=== PATIENT | female | born 1975 | race Caucasian/White ===

== ENCOUNTER 2025-03-17 11:27 | Observation (INO) | payer MEDICAID, SELFPAY ==
--- NOTE | ~2025-03-17 | CT_ITS ---
EXAMINATION: CT abdomen pelvis w con DATE: 03/17/2025 12:37 INDICATION: Abdominal pain, nausea, vomiting and diarrhea TECHNIQUE: Computed tomography (CT) of the abdomen and pelvis was performed with 100 mL Omnipaque-350 intravenous contrast. Automated exposure control and iterative reconstruction technique were employe d. The dose-length product was 418.62 mGy-cm. COMPARISON: None FINDINGS: Moderate emphysema in the visualized lower lungs. Postoperative changes of prior partial right pneumo nectomy, likely right lower lobectomy with suture line extending inferiorly from the hilum and associ ated lingular atelectasis/scarring. Heart size is normal. No pericardial or pleural effusion. Small s liding-type hiatal hernia. Cholecystectomy clips the gallbladder fossa. Liver, spleen, pancreas, bila teral adrenal glands are normal. There is mild bilateral hydroureteronephrosis extending to the bladd er with no evident urolithiasis. There are multiple phleboliths in the pelvis. Bladder and bilateral adnexa are unremarkable. 1 cm calcification versus an enhancing lesion within the endometrial canal a t the uterine fundus. Small bowel and appendix are normal. No obstruction. There is fluid in the asce nding colon consistent with given history of diarrhea. No suspected colonic wall thickening although assessment is limited by decompression of the more distal colon. No pericholecystic inflammation pres enting to suggest colitis. No free intraperitoneal gas or fluid. No pathologically enlarged abdominal or pelvic lymphadenopathy. Spondylosis, of the lumbar spine, severe at L5-S1 and mild to moderate in the visualized lower thoracic spine. Chronic appearing mild likely physiologic anterior wedging at T 12. IMPRESSION: 1. Fluid in the proximal colon consistent with nonspecific diarrhea. 2. Mild bilateral hydroureteronephrosis extending to the bladder without evident obstructing stones o r masses which could be related to chronic outlet obstruction or neurogenic bladder. 3. Moderate emphysema at the lung bases with suggestion of prior right lower lobectomy. 4. Small sliding-type hiatal hernia. 5. Indeterminate 1 cm nodular density in the endometrial canal which could represent dystrophic calci fication or an enhancing lesion such as a submucosal fibroid or major polyp. Recommend follow-up pelv ic ultrasound for further evaluation. Reviewed, dictated and finalized at location A. IMPRESSION: 1. Fluid in the proximal colon consistent with nonspecific diarrhea. 2. Mild bilateral hydroureteronephrosis extending to the bladder without eviden t obstructing stones or masses which could be related to chronic outlet obstruc tion or neurogenic bladder. 3. Moderate emphysema at the lung bases with suggestion of prior right lower lo bectomy. 4. Small sliding-type hiatal hernia. 5. Indeterminate 1 cm nodular density in the endometrial canal which could repr esent dystrophic calcification or an enhancing lesion such as a submucosal fibr oid or major polyp. Recommend follow-up pelvic ultrasound for further evaluatio n.
[2025-03-17 11:27] VITALS: BP 162/100; PULSE 84; RESP 18; TEMP 36.4; O2SAT 97
--- NOTE | 2025-03-17 11:53 | ED_ITS ---
HPI - Nausea/Vomiting/Diarrhea General Chief complaint: Nausea/Vomiting/Diarrhea Stated complaint: vomiting Time Seen by Provider: 03/17/25 11:41 Source: patient Mode of arrival: ambulatory Limitations: no limitations History of Present Illness HPI Narrative: this is a 49-year-old female marijuana user chronically presents with some abdominal pain nausea currently no vomiting no fever chills no flank pain no [address] st pain no shortness of breaths no diarrhea constipation. Patient was recently seen approximately 1 1 day ago at another emergency department facility and had a workup performed at that time. MD elicited complaint: nausea and abdominal pain Onset (ago): week(s) Related Data Home Medications ?Medication ?Instructions ?Recorded ?Confirmed ?Last Taken ?Type atorvastatin 40 mg tablet (Lipitor) 40 mg PO DAILY 03/17/25 03/17/25 Unknown History gabapentin 300 mg capsule 300 mg PO TID 03/17/25 03/17/25 Unknown History metoclopramide HCl 5 mg tablet 5 mg PO QID 03/17/25 03/17/25 Unknown History (Reglan) omeprazole 40 mg capsule,delayed 40 mg PO BID 03/17/25 03/17/25 Unknown History release ondansetron HCl 4 mg tablet 4 mg PO Q8H 03/17/25 03/17/25 Unknown History oxcarbazepine 300 mg tablet 300 mg PO BID 03/17/25 03/17/25 Unknown History paroxetine HCl 20 mg tablet 20 mg PO QAM 03/17/25 03/17/25 Unknown History promethazine 25 mg tablet 25 mg PO Q6H PRN nausea and 03/17/25 03/17/25 Unknown History vomiting tizanidine 2 mg tablet 2 mg PO Q8H 03/17/25 03/17/25 Unknown History trazodone 150 mg tablet 150 mg PO HS PRN sleep 03/17/25 03/17/25 Unknown History Allergies Allergy/AdvReac Type Severity Reaction Status Date / Time mushroom Allergy Unknown Verified 03/17/25 11:40 tirzepatide (From Zepbound) Allergy Unknown Verified 03/17/25 11:40 flu Allergy Unknown Uncoded 03/17/25 11:40 Review of Systems Review of Systems: All systems reviewed & are unremarkable except as noted in HPI and below PMFSH Past Medical History Medical History Marijuana use Depression Exam Const: General: healthy appearing and no acute distress Nutritional Appearance: well nourished Orientation/consciousness: patient oriented x3 Limitations: no limitations Neck: Neck: normal visual inspection, no lymphadenopathy and no meningeal signs Chest: Chest palpation & inspection: normal inspection of the chest Resp: Effort & Inspection: normal respiratory effort Auscultation: clear to auscultation bilaterally Cardio: Rate: regular rate Rhythm: regular rhythm GI: GI Palp: Yes Soft to palpation and Yes Tenderness to palpation present (GI) Auscultation: normal bowel sounds : General: Yes bladder normal to palpation Urinary Catheter: Urinary Catheter: patent and draining Back/Spine/Pelvis: Back: no CVA tenderness Skin: General skin exam: normal color Rashes: no rashes Neuro: General: patient oriented x3, moves all extremities, no meningeal signs and no focal motor deficits Extrem: General: normal to inspection, no clubbing, cyanosis or edema and no pedal edema Course Course Emergency Course: patient received IV Zofran along with IV Toradol for pain control and for nausea, started IV fluids normal saline CT scan abdomen pelvis performed and reviewed with patient. Blood work performed and reviewed. Spoke to hospitalist and will admit patient for observation. Vital Signs Vital signs: Vital Signs Temperature 36.4 C 03/17/25 11:27 Pulse Rate 84 03/17/25 11:27 Respiratory Rate 18 03/17/25 11:27 Blood Pressure 162/100 H 03/17/25 11:27 Pulse Oximetry 97 03/17/25 11:27 Oxygen Delivery Room Air 03/17/25 11:27 Temperature 36.4 C 03/17/25 11:27 Pulse Rate 84 03/17/25 11:27 Respiratory Rate 18 03/17/25 11:27 Blood Pressure 162/100 H 03/17/25 11:27 Pulse Oximetry 97 03/17/25 11:27 Oxygen Delivery Room Air 03/17/25 11:27 Critical Care Time Critical Care Time Critical Care Time: No Discharge Plan Discharge Clinical Impression: Marijuana use, Dehydration, Acute hypokalemia, Cannabinoid hyperemesis syndrome Patient Disposition: Acute Care Hospital Condition: Guarded Prognosis Patient Language: Lithuanian Prescriptions: No Action ondansetron HCl 4 mg tablet 4 mg PO Q8H metoclopramide HCl [Reglan] 5 mg tablet 5 mg PO QID promethazine 25 mg tablet 25 mg PO Q6H PRN (Reason: nausea and vomiting) tizanidine 2 mg tablet 2 mg PO Q8H trazodone 150 mg tablet 150 mg PO HS PRN (Reason: sleep) oxcarbazepine 300 mg tablet 300 mg PO BID paroxetine HCl 20 mg tablet 20 mg PO QAM omeprazole 40 mg capsule,delayed release(DR/EC) 40 mg PO BID atorvastatin [Lipitor] 40 mg tablet 40 mg PO DAILY gabapentin 300 mg capsule 300 mg PO TID Follow-up/Referrals: UNKNOWN,DOCTOR [Non-Staff] - Time of Disposition: 13:33
[2025-03-17 11:59] LABS: Hematocrit 34.9 % (35.0-49.0); Hemoglobin 11.3 g/dL (12.0-15.0); Immature Granulocyte Percent A 0.5 % (0.0-0.0); Lymphocytes Absolute Auto 1.61 K/mm3 (1.10-4.50); Mean Corpuscular HGB Conc 32.4 g/dL (32-36); Mean Corpuscular Hemoglobin 26.8 pg (27.0-31.0); Mean Corpuscular Volume 82.9 fL (78.0-102.0); Nucleated Red Blood Cells Absolute Auto 0.00 K/mm3 (0.00-0.00); Nucleated Red Blood Cells Perc 0.0 % (0-0.0); Platelet Count Result 273 K/mm3 (150-420); Red Blood Count 4.21 M/mm3 (4.20-5.40); White Blood Count 9.4 K/mm3 (4.8-10.8)
[2025-03-17] MEDS: KETOROLAC 30 MG/ML VIAL (*BKC) IV PUSH (12:06)
[2025-03-17] MEDS: ONDANSETRON INJ 4 MG/2 ML VIAL IV PUSH ×2 (12:06→16:35)
[2025-03-17] MEDS: SODIUM CHLORIDE 0.9% IV 1,000 ML 999 ML IV CONT (12:06)
[2025-03-17 12:10] LABS: Alanine Aminotransferase 30 U/L (6-35); Albumin Level 3.9 g/dL (3.5-5.1); Alkaline Phosphatase 85 U/L (38-126); Anion Gap 11 mmol/L (4-12); Aspartate Amino Transferase 33 U/L (14-36); Bilirubin,Total 0.6 mg/dL (0.2-1.3); Blood Urea Nitrogen 9 mg/dL (7-17); Calcium 8.8 mg/dL (8.4-10.2); Carbon Dioxide 18 mmol/L (22-30); Chloride 103 mmol/L (98-107); Estimated CRCL calculation 92 ml/min; Estimated Glomerular Filt Rate > 60; Glucose 147 mg/dL (65-110); Lipase 56 U/L (23-300); Osmolality Calculated 275 mOsm/kg (285-295); Sodium 132 mmol/L (137-145); Total Protein 6.5 g/dL (6.3-8.2)
[2025-03-17 12:12] LABS: Potassium 2.8 mmol/L (3.4-5.0)
--- OUTSIDE RECORDS SUMMARY | 2025-03-17 12:18 | XMS_ITS | Clinical Summary ---
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 LAB CHEMISTRY METHOD 12/29/2024 7:37 AM CDT [facility] Comment:Lipase reference ran ge has been updated to better align with national standards. Previous Lipase reference range was 73-393 U/L Blood Venous blood specimen / Unknown Venipuncture / Unknown 12/29/2024 7:01 AM CDT 12/29/2024 7:12 AM CDT Juwan Michael MD LAB BLOOD ORDERABLES Final R esult Performing Organization Address [facility] de Phone Number [facility] [address] [place] [phone] from Last 3 Months Insurance [facility] MEDICAID REPLACEMENT Advance Directives For more information, please contact: [phone] (7:30 AM - 5PM [facility], 7 days a week) * Full Code (Latest Code Status on File) Date Activated Date Inactivated Comments 01/24/2025 9:55 PM 01/25/2025 7:44 PM * Full Code Date Activated Date Inactivated Comments 12/29/2024 10:33 AM 12/31/2024 1:44 PM Care Teams Clinical Director Relationship Specialty Start Date End Date Bisi Rutledge [address] [place] [address] [place] [address] PCP - General 12/29/24
--- OUTSIDE RECORDS SUMMARY | 2025-03-17 12:19 | XMS_ITS | Clinical Summary ---
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 Role Phone Bisi Rutledge RETORT FORKER Primary Care Provider + Allergies Active Allergy Reactions Criticality Noted Date Comments Influenza Virus Vaccines Rash Medium 11/07/2024 Mushroom Nausea & Vomiting Low 12/12/2024 Tirzepatide (Weight Loss) Vomiting Low 01/13/2025 Medications gabapentin (NEURONTIN) 300 mg capsule Take 1 capsule (300 mg total) by mouth 3 (three) times a day Active OXcarbazepine (TRILEPTAL) 300 mg tablet Take 1 tablet (300 mg total) by mouth 2 (two) times a day Active albuterol HFA (PROVENTIL HFA,VENTOLIN HFA,PROAIR HFA) 90 mcg/actuation inhaler Inhale 2 puffs every 6 (six) hours as needed for wheezing Active atorvastatin (LIPITOR) 40 mg tablet Take 1 tablet (40 mg total) by mouth daily Active hydrOXYzine (ATARAX) 25 mg tablet Take 1 tablet (25 mg total) by mouth 3 (three) times a day Active Zepbound 2.5 mg/0.5 mL pen injector INJECT 2.5 MG BY SUBCUTANEOUS ROUTE EVERY WEEKS FOR 4 WEEKS 12/05/19 25 Active traZODone (DESYREL) 100 mg tablet Take 1 tablet (100 mg total) by mouth nightly Active omeprazole (PriLOSEC) 40 mg capsule Take 1 capsule (40 mg total) by mouth 2 (two) times a day 180 capsule 3 12/19/19 25 Active metoclopramide (REGLAN) 10 mg tabletIndications: Nausea Take 0.5 tablets (5 mg total) by mouth 4 (four) times a day for 5 days 10 tablet 12/29/19 25 Active ondansetron (ZOFRAN) 4 mg tablet Take 1 tablet (4 mg total) by mouth every 8 (eight) hours as needed for nausea or vomiting 20 tablet 3 01/10/20 25 Active promethazine (PHENERGAN) 25 mg tablet Take 1 tablet (25 mg total) by mouth every 6 (six) hours as needed for nausea or vomiting 1 - 2 times daily, uses zofran in between as needed 30 tablet 1 01/10/20 25 Active dicyclomine (BENTYL) 20 mg tablet Take 1 tablet (20 mg total) by mouth 2 (two) times a day 20 tablet 02/14/20 25 026 Active ondansetron ODT (ZOFRAN-ODT) 4 mg disintegrating tablet Dissolve 1 tablet for mild to moderate nausea or vomiting or 2 tablets for severe nausea or vomiting oral twice a day as needed. 20 tablet 02/14/20 25 Active Active Problems Problem Noted Date Diagnosed Date Nausea and vomiting 12/12/2024 Assessment & Plan (12/12/2024 2:59 PM CDT): Has daily nausea. She is vomiting a couple of times per week. Continue zofran 4 mg TID as needed and Phenergan 25 mg TID as needed. Will schedule EGD. She has been on zepbound for 2 weeks without an increase in symptoms. Chronic GERD 12/12/2024 Assessment & Plan (12/12/2024 3:00 PM CDT): The patient has symptoms of GERD. Will increase omeprazole to 40 mg BID. She has a warning sign of occasional esophageal dysphagia. No prior EGD. Will schedule an EGD. Colon cancer screening 12/12/2024 Assessment & Plan (12/12/2024 3:03 PM CDT): She reports a colonoscopy last year with 3 small polyps, records not available. If hyperplastic, repeat colonoscopy in 10 years. If adenomas less than 10 mm, repeat in 7-10 years. Encounters Date Type Department Care Team Description 02/13/2025 1:52 PM CDT - 02/13/2025 8:51 PM CDT Emergency [facility] Emergency Department [address] [place] [address] Sole Aldrich MD Abdominal pain (Primary Dx); Nausea and vomiting, unspecified vomiting type Discharge Disposition: Discharge to home or self care 02/06/2025 7:13 PM CDT - 02/06/2025 7:15 PM CDT Emergency [facility] Emergency Department [address] [place] [phone] Discharge Disposition: Left without being seen 01/15/2025 Telephone [facility] Medical Office [address] [place] [phone] Eugene Francis DO 01/13/2025 6:28 PM CDT - 01/13/2025 7:25 PM CDT Emergency [facility] Emergency Department [address] [place] [phone] Cellulitis, unspecified cellulitis site (Primary Dx) Discharge Disposition: Discharge to home or self care 01/09/2025 Orders Only [facility] Medical Office [address] [place] [phone] Humera Hung NP 12/28/2024 1:23 PM CDT - 12/28/2024 6:20 PM CDT Emergency [facility] Emergency Department [address] [place] [phone] Epigastric pain (Primary Dx); Nausea and vomiting, unspecified vomiting type; Hypokalemia due to excessive gastrointestinal loss of potassium Discharge Disposition: Discharge to home or self care 12/18/2024 8:40 AM CDT - 12/18/2024 1:12 PM CDT Emergency [facility] Emergency Department [address] [place] [phone] Black Sears MD Cannabis hyperemesis syndrome concurrent with and due to cannabis abuse (HCC) (Primary Dx) Discharge Disposition: Discharge to home or self care 12/18/2024 Orders Only [facility] Medical Office [address] [place] [phone] Humera Hung NP 12/16/2024 10:21 AM CDT - 12/16/2024 2:41 PM CDT Emergency [facility] Emergency Department [address] [place] [phone] Farhan Mckeon MD Nausea and vomiting, unspecified vomiting type (Primary Dx); Abdominal pain Discharge Disposition: Discharge to home or self care from Last 3 Months Surgical History Surgery Date Site/Laterality Comments COLONOSCOPY 09/06/2023 - 09/05/2024 LUNG REMOVAL, PARTIAL 09/06/2023 - 09/05/2024 due to pneumonia TUBAL LIGATION CHOLECYSTECTOMY TENDON REPAIR Left left finger ABLATION uterine Medical History Medical History Date Comments Suicidal ideation Generalized anxiety disorder Asthma Chronic back pain GERD (gastroesophageal reflux disease) Bipolar I disorder with mixed features (HCC) Colon polyp 2023 Adhd Family History Medical History Relation Name Comments Hypertension Father Diabetes type II Mother Heart disease Mother Hypertension Mother Ovarian cancer Paternal Grandmother Colon cancer Neg Hx Relation Name Status Comments Father Alive Mother Alive Paternal Grandmother Social History Tobacco Use Types Packs/Day Years Used Date Smoking Tobacco: Former Cigarettes Smokeless Tobacco: Never AUDIT-C Answer Date Recorded Frequency of Alcohol Consumption Not on file 11/07/2024 Q2: How many drinks containi ng alcohol do you have on a typical day when you are drinking? Patient does not drink Frequency of Binge Drinking Not on file 12/2024 Personal Safety Answer Date Recorded Have you ever been in or are you currently in a harmful physical or emotional relationship or is someone making you feel afraid or unsafe? 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 Sexual Orientation Bisexual 11/14/2024 5: 51 AM CDT Obstetrics History Para Term AB IAB SAB Ectopic Multiple Livin g Live Births 8 5 5 Date Outcome GA Total Labor Labor/2nd/3rd Weight Sex Type Anes PTL Ting A1 A5 Name Clin Term Term Term Term Term Last Filed Vital Signs Vital Sign Reading Time Taken Comments Blood Pressure 107/74 02/13/2025 8:30 PM CDT Pulse 87 02/13/2025 8:30 PM CDT Temperature 36.8 C (98.2 F) 02/13/2025 1:49 PM CDT Respiratory Rate 16 02/13/2025 7:55 PM CDT Oxygen Saturation 94% 02/13/2025 8:30 PM CDT Inhaled Oxygen Concentration - - Weight 81.6 kg (180 lb) 02/06/2025 5:45 PM CDT Height 166.4 cm (5' 5.5) 02/06/2025 5:45 PM CDT Body Mass Index 29.5 02/06/2025 5:45 PM CDT Plan of Treatment Health Maintenance Due Date Last Done Comments Cervical Cancer Screening 1976 Depression Screening 1976 Hepatitis C Screening 1976 DTaP/Tdap/Td Vaccine (1 - Tdap) 12/25/1987 Hepatitis B Screening 1994 Regular Well Visit/Exam 18-64 1994 Influenza Vaccine (#1) 2025 Breast Cancer Screening-Mammogram 12/05/2025 025 Colon Cancer Screening-Colonoscopy 09/06/20332023 Pneumococcal vaccine <65 Aged Out No longer eligible based on patient's age to complete this topic Procedures Procedure Name Priority Date/Time Associated Diagnosis Comments CT ABDOMEN PELVIS W CONTRAST ED 02/13/2025 7:07 PM CDT DRUGS OF ABUSE SCREEN, URINE WITHOUT CONFIRMATION STAT 02/13/2025 6:32 PM CDT URINALYSIS AND REFLEX TO MICROSCOPIC AND CULTURE STAT 02/13/2025 6:05 PM CDT EGFR STAT 02/13/2025 2:42 PM CDT DIFFERENTIAL AUTO STAT 02/13/2025 2:4 2 PM CDT LIPASE STAT 02/13/2025 2:42 PM CDT COMPREHENSIVE METABOLIC PANEL STAT 02/13/2025 2:42 PM CDT CBC WITH AUTO DIFFERENTIAL STAT 02/13/2025 2:42 PM CDT POCT RAPID HIV ANTIBODY COMMUNITY SCREENING-IVETT ELIGIBLE Routine 01/13/2025 7:01 PM CDT POCUS ABDOMINAL WALL / BACK SOFT TISSUE 01/13/2025 6:54 PM CDT POCT HCG, URINE Routine 12/28/2024 6:10 PM CDT URINALYSIS AND REFLEX TO MICROSCOPIC AND CULTURE STAT 12/28/2024 5:40 PM CDT ECG 12-LEAD STAT 12/28/2024 2:[address] ABDOMEN PELVIS W CONTRAST ED 12/28/2024 2:20 PM CDT PHOSPHORUS Add-On 12/28/2024 1:57 PM CDT MAGNESIUM Add-On 12/28/2024 1:57 PM CDT EGFR STAT 12/28/2024 1:57 PM CDT LIPASE Add-On 12/28/2024 1:57 PM CDT DIFFERENTIAL AUTO STAT 12/28/2024 1:5 7 PM CDT COMPREHENSIVE METABOLIC PANEL STAT 12/28/2024 1:57 PM CDT CBC WITH AUTO DIFFERENTIAL STAT 12/28/2024 1:57 PM CDT EGFR STAT 12/18/2024 9:16 AM CDT LIPASE STAT 12/18/2024 9:16 AM CDT COMPREHENSIVE METABOLIC PANEL STAT 12/18/2024 9:16 AM CDT DIFFERENTIAL AUTO STAT 12/18/2024 8:5 0 AM CDT CBC WITH AUTO DIFFERENTIAL STAT 12/18/2024 8:50 AM CDT URINALYSIS AND REFLEX TO MICROSCOPIC AND CULTURE STAT 12/16/2024 12:[address] ABDOMEN PELVIS WO CONTRAST ED 12/16/2024 11:12 AM CDT EGFR STAT 12/16/2024 10:32 AM CDT LIPASE STAT 12/16/2024 10:32 AM CDT DIFFERENTIAL AUTO STAT 12/16/2024 10: 32 AM CDT COMPREHENSIVE METABOLIC PANEL STAT 12/16/2024 10:32 AM CDT CBC WITH AUTO DIFFERENTIAL STAT 12/16/2024 10:32 AM CDT DIAGNOSTIC MAMMOGRAM BILATERAL W WALLY Schedule Routine, Read Routine (OP Routine) 12/05/2024 2:01 PM CDT Breast pain, right from Last 3 Months or Most Recently Relevant to Health Maintenance Results * CT Abdomen Pelvis W Contrast (02/13/2025 7:07 PM CDT) Anatomical Region Laterality Modality Body N/A Computed Tomogra phy 02/13/2025 7:02 PM CDT Impressions 02/13/2025 11:05 PM CDT No acute findings. The nodular uterine calcification noted above most likely represents a uterine fibroid but endometrial polyp is not excluded but the degree and appearance of calcifications suggest a benign abnormality. No interval changes when compared to prior study of 12/28/2024. Stat report by [facility] Electronically signed by: Bello Machado M.D. Narrative 02/13/2025 11:05 PM CDT EXAMINATION: CT ABDOMEN PELVIS W CONTRAST DATE: 02/13/2025 6:50 PM CLINICAL HISTORY: Abdominal pain, acute, nonlocalized TECHNIQUE: Axial CT imaging of the abdomen and pelvis performed with 75mL of Optiray 350 intravenous contrast. 2-D Reformatted images are obtained. COMPARISON: CT ABDOMEN PELVIS W CONTRAST 12/28/2024 FINDINGS: Lungs: Emphysematous changes lung parenchyma and prior partial right lobectomy. Heart: Trace to mild pericardial effusion. Liver: Normal. No mass. Gallbladder and biliary ducts: There is biliary dilatation, which likely represents post cholecystectomy reservoir effect. Pancreas: Normal. No ductal dilation. Spleen: Normal. No splenomegaly. Adrenal glands: Normal. No mass. Kidneys and ureters: Normal. No hydronephrosis. Normal nephrogram. Stomach and bowel: Scattered colonic diverticuli and again noted chronic inflammatory changes of the colonic wall and mucosal hypertrophy. No obstruction. No mucosal thickening. Appendix: Appendix is normal in caliber and there is no periappendiceal inflammatory changes. No evidence of acute appendicitis. Intraperitoneal space: Unremarkable. No free air. No significant fluid collection. Vasculature: Moderate to severe mixed calcified plaque of the abdominal aorta and iliac arteries. Lymph nodes: Unremarkable. No enlarged lymph nodes. Urinary bladder: Unremarkable as visualized. Reproductive: Again noted 1.2 cm slightly calcified nodular density either within the endometrial canal or subendometrial and unchanged from prior study. Uterus anteverted normal in size. Bones/joints: No acute fracture. Procedure Note Bello Machado MD - 02/13/2025 EXAMINATION: CT ABDOMEN PELVIS W CONTRAST DATE: 02/13/2025 6:50 PM CLINICAL HISTORY: Abdominal pain, acute, nonlocalized TECHNIQUE: Axial CT imaging of the abdomen and pelvis performed with 75mL of Optiray 350 intravenous contrast. 2-D Reformatted images are obtained. COMPARISON: CT ABDOMEN PELVIS W CONTRAST 12/28/2024 FINDINGS: Lungs: Emphysematous changes lung parenchyma and prior partial right lobectomy. Heart: Trace to mild pericardial effusion. Liver: Normal. No mass. Gallbladder and biliary ducts: There is biliary dilatation, which likely represents post cholecystectomy reservoir effect. Pancreas: Normal. No ductal dilation. Spleen: Normal. No splenomegaly. Adrenal glands: Normal. No mass. Kidneys and ureters: Normal. No hydronephrosis. Normal nephrogram. Stomach and bowel: Scattered colonic diverticuli and again noted chronic inflammatory changes of the colonic wall and mucosal hypertrophy. No obstruction. No mucosal thickening. Appendix: Appendix is normal in caliber and there is no periappendiceal inflammatory changes. No evidence of acute appendicitis. Intraperitoneal space: Unremarkable. No free air. No significant fluid collection. Vasculature: Moderate to severe mixed calcified plaque of the abdominal aorta and iliac arteries. Lymph nodes: Unremarkable. No enlarged lymph nodes. Urinary bladder: Unremarkable as visualized. Reproductive: Again noted 1.2 cm slightly calcified nodular density either within the endometrial canal or subendometrial and unchanged from prior study. Uterus anteverted normal in size. Bones/joints: No acute fracture. IMPRESSION: No acute findings. The nodular uterine calcification noted above most likely represents a uterine fibroid but endometrial polyp is not excluded but the degree and appearance of calcifications suggest a benign abnormality. No interval changes when compared to prior study of 12/28/2024. Stat report by [facility] Electronically signed by: Bello Machado M.D. Sole Aldrich MD IMG CT PROCEDURES Final Result * (ABNORMAL) Drugs of Abuse Screen, Urine without Confirmation (02/13/2025 6:32 PM CDT) Amphetamine, ur Not Detected CutOff 500ng/mL Comment: Interpretive Data - Amphetamines: Samples containing greater than 500 ng/mL d-methamphetamine or other cross-reacting amphetamine compounds are reported as positive. Amphetamine immunoassays are subject to significant false positive rates due to cross-reactivity of non-amphetamine drugs. Confirmatory testing required for definitive results. Current Interpretive Data was last reviewed 2023. Barbiturates, ur Not Detected CutOff 200ng/mL [facility] Comment: Interpretive Data - Barbiturates: Samples containing greater than 200 ng/mL secobarbital or other cross-reacting barbiturate compounds are reported as positive. False positive and false negative results are possible. Confirmatory testing required for definitive results. Current Interpretive Data was last reviewed 2023. Benzodiazepines, ur Not Detected CutOff 100ng/mL [facility] Comment: Interpretive Data - Benzodiazepines: Samples containing greater than 100 ng/mL nordiazepam or other cross-reacting compounds are reported as positive. False positive and false negative results are possible. Confirmatory testing required for definitive results. Current Interpretive Data was last reviewed 2023. Cannabinoids, ur Screen Positive, presumptive (A) CutOff 50 ng/mL [facility] Comment: Interpretive Data - Cannabinoids: Samples containing greater than 50 ng/mL delta-9 THC -COOH or other cross- reacting compounds are reported as positive. False positive and false negative results are possible. Confirmatory testing required for definitive results. Current Interpretive Data was last reviewed 2023. Cocaine, ur Not Detected CutOff 150ng/mL [facility] Comment: Interpretive Data - Cocaine: Samples containing greater than 150 ng/mL benzoylecgonine or other cross- reacting compounds are reported as positive. False positive and false negative results are possible. Confirmatory testing required for definitive results. Current Interpretive Data was last reviewed 2023. Fentanyl, Ur Not Detected CutOff 5 ng/mL [facility] Comment: Interpretive Data - Fentanyl: Samples containing greater than 5 ng/mL norfentanyl, fentanyl, or other cross-reacting fentanyl compounds are reported as positive. False positive and false negative results are possible. Confirmatory testing required for definitive results. Current Interpretive Data was last reviewed 2024. Methadone, ur Not Detected CutOff 300ng/mL [facility] Comment: Interpretive Data - Methadone: Samples containing greater than 300 ng/mL d,l-methadone or other cross-reacting compounds are reported as positive. False positive and false negative results are possible. Confirmatory testing required for definitive results. Current Interpretive Data was last reviewed 2023. Opiates, ur Not Detected CutOff 300ng/mL [facility] Comment: Interpretive Data - Opiates: Samples containing greater than 300 ng/mL morphine or other cross-reacting compounds are reported as positive. False positive and false negative results are possible. Confirmatory testing required for definitive results. Current Interpretive Data was last reviewed 2023. Oxycodone, ur Not Detected CutOff 100ng/mL [facility] Comment: Interpretive Data - Oxycodone: Samples containing greater than 100 ng/mL oxycodone or other cross-reacting compounds are reported as positive. False positive and false negative results are possible. Confirmatory testing required for definitive results. Current Interpretive Data was last reviewed 2023. Phencyclidine, ur Not Detected CutOff 25 ng/mL [facility] Comment: Interpretive Data - Phencyclidine: Samples containing greater than 25 ng/mL phencyclidine or other cross-reacting compounds are reported as positive. False positive and false negative results are possible. Confirmatory testing required for definitive results. Current Interpretive Data was last reviewed 2023. Urine Creatinine 54 mg/dL [facility] Comment: Interpretive Data Urine Creatinine: < 10 mg/dL is extremely dilute = or > 10 but < 20 mg/dL is dilute = or > 20 mg/dL is normal Current Interpretive Data was last revised on 2017. Urine 02/13/2025 6:32 PM CDT 02/13/2025 6:44 PM CDT Narrative [facility] - 02/13/2025 7:28 PM CDT Drug of Abuse screening is performed by immunoassay for medical purposes only. This is not to be used for Pain Management purposes. Sole Aldrich MD LAB URINE ORDERABLES nal Result [facility] [id number] Department [place] [address] * (ABNORMAL) Urinalysis reflex to microscopic and culture Urine (02/13/2025 6:05 PM CDT) Color, ur Yellow Yellow Clarity, ur Turbid(A) Clear [facility] Specific gravity, ur 1.016 1.003 - 1.030 [facility] pH, urine 8.5 [facility] Comment: Interpretive Data U rine pH is affected by diet, medications, systemic acid-base disturbances, and renal tubular function. pH may affect urinary stone formation. For example, urine pH below 6.0 may help reduce the tendency for calcium phosphate stones and pH greater than 6.0 may reduce the tendency for uric acid stone formation. Source: [facility] [employer] Current Interpretive Data was last revised on 2017 Protein, ur ql Trace Negative [facility] Glucose, ur ql Trace(A) Negative [facility] Ketones, ur Trace Negative [facility] Bilirubin, ur Negative Negative [facility] Blood, ur Negative Negative [facility] Urobilinogen, ur <2.0 <2.0 mg/dL [facility] Nitrite, ur Negative Negative [facility] Leukocyte esterase, ur Negative Negative [facility] UA reflex comment Reflex conditions for microscopic UA and culture not met. [facility] Urine 02/13/2025 6:05 PM CDT 02/13/2025 6:07 PM CDT Sole Aldrich MD LAB MICROBIOLOGY - GENE RAL ORDERABLES Final Result [facility] [id number] [place] [address] * eGFR (02/13/2025 2:42 PM CDT) eGFR >90 >=60 mL/min/1. 73 m2 Comment: Interpretive Data Reference Interval Normal >/= 90 mL/min/1.73m2 Mildly decreased* 60 - 89 mL/min/1.73m2 Mildly to moderately decreased 45 - 59 mL/min/1.73m2 Moderately to severely decreased 30 - 44 mL/min/1.73m2 Severely decreased 15 - 29 mL/min/1.73m2 Kidney Failure < 15 mL/min/1.73m2 *Relative to young adult level Estimated glomerular filtration rate is determined by the 2020 CKD-EPI equation recommended by the National Kidney Foundation (A Unifying Approach to GFR Estimation: Recommendations of the NKF-ASK Task Force on Reassessing the Inclusion of Race in Diagnosing Kidney Disease, JASN 2020). The CKD-EPI equation should not be used for patients with unstable renal function and has not been validated in children and those over 70. Current interpretive data was last reviewed 2021. Blood 02/13/2025 2:42 PM CDT 02/13/2025 2:54 PM CDT Sole Aldrich MD LAB BLOOD ORDERABLES Fi nal Result [facility] [address] [place] [address] * (ABNORMAL) Differential, auto (02/13/2025 2:42 PM CDT) Neutrophil abs 10.47(H) 1.50 - 6.50 K/cumm Imm gran abs 0.06 0.00 - 0.10 K/cumm [facility] Lymphocyte abs 1.25 0.80 - 3.30 K/cumm [facility] Monocyte abs 0.41 0.20 - 0.80 K/cumm [facility] Eosinophil abs 0.00 0.00 - 0.50 K/cumm [facility] Basophil abs 0.04 0.00 - 0.10 K/cumm [facility] Neutrophil pct 85.6 % [facility] Comment: Interpretive Data Percent cell count reference ranges are not reported, since discordance with absolute values may lead to misinterpretation of CBC data. Current Interpretive Data was last revised on 2017. Imm gran pct 0.5 % [facility] Comment: Interpretive Data Percent cell count reference ranges are not reported, since discordance with absolute values may lead to misinterpretation of CBC data. Current Interpretive Data was last revised on 2017. Lymphocyte pct 10.2 % [facility] Comment: Interpretive Data Percent cell count reference ranges are not reported, since discordance with absolute values may lead to misinterpretation of CBC data. Current Interpretive Data was last revised on 2017. Monocyte pct 3.4 % [facility] Comment: Interpretive Data Percent cell count reference ranges are not reported, since discordance with absolute values may lead to misinterpretation of CBC data. Current Interpretive Data was last revised on 2017. Eosinophil pct 0.0 % [facility] Comment: Interpretive Data Percent cell count reference ranges are not reported, since discordance with absolute values may lead to misinterpretation of CBC data. Current Interpretive Data was last revised on 2017. Basophil pct 0.3 % [facility] Comment: Interpretive Data Percent cell count reference ranges are not reported, since discordance with absolute values may lead to misinterpretation of CBC data. Current Interpretive Data was last revised on 2017. Blood 02/13/2025 2:42 PM CDT 02/13/2025 2:54 PM CDT Sole Aldrich MD LAB BLOOD ORDERABLES Fi nal Result Performing Organization Address City/[facility] Co de Phone Number [facility] [id number] [place] [employer] [place] [address] * (ABNORMAL) CBC with auto differential (02/13/2025 2:42 PM CDT) WBC 12.23(H) 3.80 - 9.90 K/cumm Hgb 12.5 11.9 - 15.5 g/dL [facility] Hct 38.2 35.6 - 45.5 % [facility] Plt 295 150 - 400 K/cumm [facility] MPV 11.6 9.1 - 12.3 fL [facility] CH RBC 4.65 3.90 - 5.20 M/cumm [facility] CH MCV 82.2 81.3 - 96.4 fL [facility] MCH 26.9(L) 27.1 - 33.3 pg [facility] MCHC 32.7 32.3 - 35.7 g/dL [facility] RDW CV 14.4 11.1 - 14.9 % [facility] RDW SD 43.0 35.7 - 48.1 fL [facility] NRBC abs 0.00 0.00 - 0.01 K/cumm [facility] Blood Venous blood specimen / Unknown 02/13/2025 2:42 PM CDT 02/13/2025 2:54 PM CDT Sole Aldrich MD LAB BLOOD ORDERABLES Fi nal Result [facility] [address] [place] [address] * Lipase (02/13/2025 2:42 PM CDT) Lipase 14 10 - 99 Units/L Blood Venous blood specimen / Unknown 02/13/2025 2:42 PM CDT 02/13/2025 2:54 PM CDT Sole Aldrich MD LAB BLOOD [place] [address] [place] [address] * (ABNORMAL) Comprehensive metabolic panel (02/13/2025 2:42 PM CDT) Sodium 140 135 - 145 mmol/L Potassium, pl 3.8 3.3 - 4.9 mmol/L [facility] Chloride 100 97 - 110 mmol/L [facility] CO2 21(L) 22 - 32 mmol/L [facility] Anion gap 19(H) 2 - 15 mmol/L [facility] BUN 9 6 - 25 mg/dL [facility] Creatinine 0.67 0.60 - 1.10 mg/dL [facility] Glucose 139 70 - 199 mg/dL [facility] Comment: Interpretive Data Fasting glucose >/= 126 mg/dl is diagnostic for diabetes. Fasting is defined as no caloric intake for at least 8 hours. Fasting glucose between 100 mg/dl to 125 mg/dl is diagnostic of prediabetes. In a patient with classic symptoms of hyperglycemia or hyperglycemic crisis, a random glucose >/= 200 mg/dl is diagnostic for diabetes. In the absence of unequivocal hyperglycemia, results should be confirmed by repeat testing. The classification and Diagnosis of Diabetes Diabetes Care 202; 46: S19-S40. Current interpretive data was last revised 2022. Calcium 10.1 8.5 - 10.3 mg/dL [facility] Bilirubin, total 0.3 0.1 - 1.2 mg/dL [facility] Protein, pl 7.5 6.5 - 8.5 g/dL [facility] Albumin 4.4 3.5 - 5.0 g/dL [facility] Alk phos 141(H) 40 - 130 Units/L [facility] ALT 12 7 - 45 Units/L [facility] AST 20 10 - 45 Units/L [facility] Blood 02/13/2025 2:42 PM CDT 02/13/2025 2:54 PM CDT Sole Aldrich MD LAB BLOOD ORDERABLES [place] [address] [place] [address] * POCT Rapid HIV Antibody Community Screening-[place] Eligible (01/13/2025 7:01 PM CDT) Rapid HIV, POC Negative Negative Lot Number [id number] QC Control Line Acceptable Blood 01/13/2025 7:01 PM CDT Maurice Shoemaker MD POINT OF CARE TEST ORDERABLES Final Result * POCUS Abdominal Wall/Back Soft Tissue (01/13/2025 6:54 PM CDT) Anatomical Region Laterality Modality Ultrasound 01/13/2025 6:44 PM CDT Narrative 01/14/2025 10:15 PM CDT Performed by: Jose Candelario/MSK: Exam Information: Exam type: Diagnostic Indication(s) for Exam: Swelling Location : Upper extremity Side: Left Findings: Tissue thickness: Thickened Cobblestoning: Increased Tissue echogenicity: Increased Subcutaneous collection: Present If present diameter (mm)=: 10 Subcutaneous gas/air: Absent Fascial fluid: Absent Muscle appearance: Normal Interpretation: Abscess Location : small [id number] area of ill-defined fluid, possible developing abscess, no clear fluid components, used to guide decision making to start abx and observe with warm compresses Electronically signed by Jose Candelario on Monday, January 13, 2025 at 7:54 PM I have reviewed the images & the resident's interpretation. I agree with the findings. Images on file. Electronically signed by Lucas Shoemaker on Tuesday, January 14, 2025 at 10:15 PM I have reviewed the images & the resident's interpretation. I agree with the findings. Images on file. Procedure Note Maurice Shoemaker MD - 01/14/2025 Performed by: Jose Candelario/AZAEL: Exam Information: Exam type: Diagnostic Indication(s) for Exam: Swelling Location : Upper extremity Side: Left Findings: Tissue thickness: Thickened Cobblestoning: Increased Tissue echogenicity: Increased Subcutaneous collection: Present If present diameter (mm)=: 10 Subcutaneous gas/air: Absent Fascial fluid: Absent Muscle appearance: Normal Interpretation: Abscess Location : small [id number] area of ill-defined fluid, possibledeveloping abscess, no clear fluid components, used to guide decisionmaking to start abx and observe with warm compresses Electronically signed by Jose Candelario on Monday, January 13, 2025 at 7:54PM I have reviewed the images & the resident's interpretation. I agree withthe findings. Images on file. Electronically signed by Lucas Shoemaker on Tuesday, January 14, 2025 at 10:15PM I have reviewed the images & the resident's interpretation. I agree withthe findings. Images on file. Maurice Shoemaker MD IMG US PROCEDURES Final Resul t * POCT hCG, urine (12/28/2024 6:10 PM CDT) HCG, ur, POC Negative Negative Lot Number [id number] QC Backgroud Clear Acceptable QC Control Line Acceptable Urine 12/28/2024 6:10 PM CDT Nate VALLE POINT OF CARE TEST ORDERAB LES Final Result * (ABNORMAL) Urinalysis reflex to microscopic and culture Urine (12/28/2024 5:40 PM CDT) Color, ur Yellow Yellow Clarity, ur Clear Clear [facility] ([place]) Specific gravity, ur >1.050(A) 1.003 - 1.030 [facility] ([place]) Comment:Specific Ignacio is high due to contrast. pH, urine 8.5 [facility] ([place]) Comment: Interpretive Data U rine pH is affected by diet, medications, systemic acid-base disturbances, and renal tubular function. pH may affect urinary stone formation. For example, urine pH below 6.0 may help reduce the tendency for calcium phosphate stones and pH greater than 6.0 may reduce the tendency for uric acid stone formation. Source: [employer] Current Interpretive Data was last revised on 2017 Protein, ur ql Trace Negative [facility] ([place]) Glucose, ur ql Negative Negative [facility] ([place]) Ketones, ur 1+(A) Negative [facility] ([place]) Bilirubin, ur Negative Negative [facility] ([place]) Blood, ur Negative Negative [facility] ([place]) Urobilinogen, ur <2.0 <2.0 mg/dL [facility] ([place]) Nitrite, ur Negative Negative [facility] ([place]) Leukocyte esterase, ur Negative Negative [facility] ([place]) UA reflex comment Reflex conditions for microscopic UA and culture not met. [facility] ([place]) Urine 12/28/2024 5:40 PM CDT 12/28/2024 5:43 PM CDT Nate VALLE LAB MICROBIOLOGY - GENERAL ORDERABLES Final Result Performing Organization Address City/[facility] Co de Phone Number [facility] ([place]) [address] [facility] Department [place] [address] * ECG 12 lead (12/28/2024 2:55 PM CDT) 12/28/2024 2:55 PM CDT Narrative [facility] - 12/28/2024 6:44 PM CDT Vent Rate: 84 bpm RR Interval: 708 msec NV Interval: 128 msec QRS Duration: 84 msec QT Interval: 407 msec QTC Interval: 448 msec P-R-T [place]: 70 - 71 - 57 degrees IMPRESSION: SINUS RHYTHM POSSIBLE LEFT ATRIAL ENLARGEMENT BORDERLINE ECG NO PREVIOUS TRACING AVAILABLE FOR COMPARISON Electronically Signed By: Dr. Mohamud Mitchell M.D. Nate VALLE ECG ORDERABLES Final Resu lt Performing Organization Address City/[facility] Co de Phone Number [facility] * CT Abdomen Pelvis W Contrast (12/28/2024 2:20 PM CDT) Anatomical Region Laterality Modality Body N/A Computed Tomogra phy 12/28/2024 2:51 PM CDT Impressions 12/28/2024 2:51 PM CDT No acute CT findings in the abdomen or pelvis. Electronically signed by: Edith Leung M.D. Narrative 12/28/2024 2:51 PM CDT EXAMINATION: Computed tomography of the abdomen and pelvis with intravenous contrast HISTORY: Epigastric pain TECHNIQUE: Transaxial computed tomographic images of the abdomen and pelvis were obtained with intravenous contrast according to the standard protocol after the uneventful administration of 69 mL Opti-Ray 350 intravenous contrast. COMPARISON: 12/16/2024 FINDINGS: Mosaic attenuation in the lung bases. Normal heart size. There is a trace pericardial effusion. Small hiatal hernia. No focal liver lesion or biliary ductal dilatation. Patent portal, splenic, superior mesenteric veins. Spleen, adrenal glands, pancreas are normal. Patient is status post cholecystectomy. No focal renal lesion or hydronephrosis. Urinary bladder is decompressed. Uterus is anteverted and contains a calcified fibroid. Ovaries are normal. No ascites or pneumoperitoneum. No enlarged abdominal or pelvic lymph nodes. Colon is largely decompressed. The appendix is fluid-filled and normal in caliber without surrounding inflammatory change. There is a fat-containing left inguinal hernia. No bowel obstruction. No suspicious osseous lesion. Procedure Note Edith Leung MD - 12/28/2024 EXAMINATION: Computed tomography of the abdomen and pelvis with intravenous contrast HISTORY: Epigastric pain TECHNIQUE: Transaxial computed tomographic images of the abdomen and pelvis were obtained with intravenous contrast according to the standard protocol after the uneventful administration of 69 mL Opti-Ray 350 intravenous contrast. COMPARISON: 12/16/2024 FINDINGS: Mosaic attenuation in the lung bases. Normal heart size. There is a trace pericardial effusion. Small hiatal hernia. No focal liver lesion or biliary ductal dilatation. Patent portal, splenic, superior mesenteric veins. Spleen, adrenal glands, pancreas are normal. Patient is status post cholecystectomy. No focal renal lesion or hydronephrosis. Urinary bladder is decompressed. Uterus is anteverted and contains a calcified fibroid. Ovaries are normal. No ascites or pneumoperitoneum. No enlarged abdominal or pelvic lymph nodes. Colon is largely decompressed. The appendix is fluid-filled and normal in caliber without surrounding inflammatory change. There is a fat-containing left inguinal hernia. No bowel obstruction. No suspicious osseous lesion. IMPRESSION: No acute CT findings in the abdomen or pelvis. Electronically signed by: Edith Leung M.D. Nate VALLE IMG CT PROCEDURES Final Re sult * eGFR (12/28/2024 1:57 PM CDT) eGFR 67 >=60 mL/min/1. 73 m2 Comment: Interpretive Data Reference Interval Normal >/= 90 mL/min/1.73m2 Mildly decreased* 60 - 89 mL/min/1.73m2 Mildly to moderately decreased 45 - 59 mL/min/1.73m2 Moderately to severely decreased 30 - 44 mL/min/1.73m2 Severely decreased 15 - 29 mL/min/1.73m2 Kidney Failure < 15 mL/min/1.73m2 *Relative to young adult level Estimated glomerular filtration rate is determined by the 2020 CKD-EPI equation recommended by the National Kidney Foundation (A Unifying Approach to GFR Estimation: Recommendations of the NKF-ASK Task Force on Reassessing the Inclusion of Race in Diagnosing Kidney Disease, JASN 2020). The CKD-EPI equation should not be used for patients with unstable renal function and has not been validated in children and those over 70. Current interpretive data was last reviewed 2021. Blood 12/28/2024 1:57 PM CDT 12/28/2024 2:01 PM CDT Nate VALLE LAB BLOOD ORDERABLES Final Result [facility] ([place]) [address] [facility] [facility] Department of Laboratories [place] [address] * (ABNORMAL) Differential, auto (12/28/2024 1:57 PM CDT) Neutrophil abs 10.51(H) 1.50 - 6.50 K/cumm Imm gran abs 0.07 0.00 - 0.10 K/cumm [facility] ([place] Lymphocyte abs 2.39 0.80 - 3.30 K/cumm [facility] ([place]) Monocyte abs 1.41(H) 0.20 - 0.80 K/cumm [facility] ([place]) Eosinophil abs 0.00 0.00 - 0.50 K/cumm [facility] ([place]) Basophil abs 0.04 0.00 - 0.10 K/cumm [facility] ([place]) Neutrophil pct 72.8 % [facility] ([place]) Comment: Interpretive Data Percent cell count reference ranges are not reported, since discordance with absolute values may lead to misinterpretation of CBC data. Current Interpretive Data was last revised on 2017. Imm gran pct 0.5 % [facility] ([place]) Comment: Interpretive Data Percent cell count reference ranges are not reported, since discordance with absolute values may lead to misinterpretation of CBC data. Current Interpretive Data was last revised on 2017. Lymphocyte pct 16.6 % [facility] ([place]) Comment: Interpretive Data Percent cell count reference ranges are not reported, since discordance with absolute values may lead to misinterpretation of CBC data. Current Interpretive Data was last revised on 2017. Monocyte pct 9.8 % [facility] ([place]) Comment: Interpretive Data Percent cell count reference ranges are not reported, since discordance with absolute values may lead to misinterpretation of CBC data. Current Interpretive Data was last revised on 2017. Eosinophil pct 0.0 % [facility] ([place]) Comment: Interpretive Data Percent cell count reference ranges are not reported, since discordance with absolute values may lead to misinterpretation of CBC data. Current Interpretive Data was last revised on 2017. Basophil pct 0.3 % [facility] ([place]) Comment: Interpretive Data Percent cell count reference ranges are not reported, since discordance with absolute values may lead to misinterpretation of CBC data. Current Interpretive Data was last revised on 2017. Blood 12/28/2024 1:57 PM CDT 12/28/2024 2:01 PM CDT us Nate VALLE LAB BLOOD ORDERABLES Final Result [facility] ([place]) [address] [facility] [place] [address] * (ABNORMAL) CBC with auto differential (12/28/2024 1:57 PM CDT) Pathologist [facility] WBC 14.42(H) 3.80 - 9.90 K/cumm Hgb 13.0 11.9 - 15.5 g/dL [facility] ([place]) Hct 37.8 35.6 - 45.5 % [facility] ([place]) Plt 513(H) 150 - 400 K/cumm [facility] ([place]) MPV 10.4 9.1 - 12.3 fL [facility] ([place]) RBC 4.91 3.90 - 5.20 M/cumm [facility] ([place]) MCV 77.0(L) 81.3 - 96.4 fL [facility] ([place]) MCH 26.5(L) 27.1 - 33.3 pg [facility] ([place]) MCHC 34.4 32.3 - 35.7 g/dL [facility] ([place]) RDW CV 13.6 11.1 - 14.9 % [facility] ([place]) RDW SD 38.5 35.7 - 48.1 fL [facility] ([place]) NRBC abs 0.00 0.00 - 0.01 K/cumm [facility] ([place]) Blood Venous blood specimen / Unknown 12/28/2024 1:57 PM CDT 12/28/2024 2:01 PM CDT us Nate VALLE LAB BLOOD ORDERABLES Final Result [facility] ([place]) [address] [facility] Department [place] [address] * (ABNORMAL) Phosphorus (12/28/2024 1:57 PM CDT) [facility] Phosphorus, pl 2.2(L) 2.3 - 4.5 mg/dL Blood 12/28/2024 1:57 PM CDT 12/28/2024 2:33 PM CDT Nate VALLE LAB BLOOD ORDERABLES Final Result [facility] ([place]) [address] [place] [address] Department [place] [address] * Magnesium (12/28/2024 1:57 PM CDT) [facility] Magnesium 1.5 1.4 - 2.5 mg/dL Blood 12/28/2024 1:57 PM CDT 12/28/2024 2:33 PM CDT Nate VALLE LAB BLOOD ORDERABLES Final Result [facility] ([place]) [address] [place] [address] [place] [address] * Lipase (12/28/2024 1:57 PM CDT) [facility] Lipase 18 10 - 99 Units/L Blood 12/28/2024 1:57 PM CDT 12/28/2024 2:13 PM CDT Nate VALLE LAB BLOOD ORDERABLES Final Result [facility] ([place]) [address] [place] [address] [place] [address] * (ABNORMAL) Comprehensive metabolic panel (12/28/2024 1:57 PM CDT) [facility] Sodium 135 135 - 145 mmol/L Potassium, pl 3.0(L) 3.3 - 4.9 mmol/L [facility] ([place]) Chloride 89(L) 97 - 110 mmol/L [facility] ([place]) CO2 24.0 22.0 - 32.0 mmol/L [facility] ([place]) Anion gap 22(H) 2 - 15 mmol/L [facility] ([place]) BUN 19 6 - 25 mg/dL [facility] ([place]) Creatinine 1.03 0.60 - 1.10 mg/dL [facility] ([place]) Glucose 114 70 - 199 mg/dL [facility] ([place]) Comment: Interpretive Data Fasting glucose >/= 126 mg/dl is diagnostic for diabetes. Fasting is defined as no caloric intake for at least 8 hours. Fasting glucose between 100 mg/dl to 125 mg/dl is diagnostic of prediabetes. In a patient with classic symptoms of hyperglycemia or hyperglycemic crisis, a random glucose >/= 200 mg/dl is diagnostic for diabetes. In the absence of unequivocal hyperglycemia, results should be confirmed by repeat testing. The classification and Diagnosis of Diabetes Diabetes Care 202; 46: S19-S40. Current interpretive data was last revised 2022 Calcium 9.9 8.5 - 10.3 mg/dL [facility] ([place]) Bilirubin, total 0.7 0.1 - 1.2 mg/dL [facility] ([place]) Protein, pl 8.0 6.5 - 8.5 g/dL [facility] ([place]) Albumin 4.6 3.5 - 5.0 g/dL [facility] ([place]) Alk phos 125 40 - 130 Units/L [facility] ([place]) ALT 12 7 - 45 Units/L [facility] ([place]) AST 23 10 - 45 Units/L [facility] ([place]) Blood Venous blood specimen / Unknown 12/28/2024 1:57 PM CDT 12/28/2024 2:01 PM CDT us Nate VALLE LAB BLOOD ORDERABLES Final Result [facility]) [address] [facility] Department [place] [address] * eGFR (12/18/2024 9:16 AM CDT) eGFR 64 >=60 mL/min/1. 73 m2 Comment: Interpretive Data Reference Interval Normal >/= 90 mL/min/1.73m2 Mildly decreased* 60 - 89 mL/min/1.73m2 Mildly to moderately decreased 45 - 59 mL/min/1.73m2 Moderately to severely decreased 30 - 44 mL/min/1.73m2 Severely decreased 15 - 29 mL/min/1.73m2 Kidney Failure < 15 mL/min/1.73m2 *Relative to young adult level Estimated glomerular filtration rate is determined by the 2020 CKD-EPI equation recommended by the National Kidney Foundation (A Unifying Approach to GFR Estimation: Recommendations of the NKF-ASK Task Force on Reassessing the Inclusion of Race in Diagnosing Kidney Disease, JASN 2020). The CKD-EPI equation should not be used for patients with unstable renal function and has not been validated in children and those over 70. Current interpretive data was last reviewed 2021. Blood 12/18/2024 9:16 AM CDT 12/18/2024 9:20 AM CDT us Black Sears MD LAB BLOOD ORDERABLES Final Result Performing Organization Address [facility] de Phone Number [facility] [place]) [address] [facility] [place] [address] * Lipase (12/18/2024 9:16 AM CDT) Lipase 23 10 - 99 Units/L Blood 12/18/2024 9:16 AM CDT 12/18/2024 9:20 AM CDT Black Sears MD LAB BLOOD ORDERABLES Final Result Performing Organization Address [facility] Co de Phone Number [facility] [address] Department of Laboratories [place] [address] * (ABNORMAL) Comprehensive metabolic panel (12/18/2024 9:16 AM CDT) Sodium 137 135 - 145 mmol/L Potassium, pl 3.0(L) 3.3 - 4.9 mmol/L [facility] ([place]) Chloride 96(L) 97 - 110 mmol/L [facility] ([place]) CO2 19.4(L) 22.0 - 32.0 mmol/L [facility] ([place]) Anion gap 22(H) 2 - 15 mmol/L [facility] ([place]) BUN 22 6 - 25 mg/dL [facility] ([place]) Creatinine 1.08 0.60 - 1.10 mg/dL [facility] ([place]) Glucose 120 70 - 199 mg/dL [facility] ([place]) Comment: Interpretive Data Fasting glucose >/= 126 mg/dl is diagnostic for diabetes. Fasting is defined as no caloric intake for at least 8 hours. Fasting glucose between 100 mg/dl to 125 mg/dl is diagnostic of prediabetes. In a patient with classic symptoms of hyperglycemia or hyperglycemic crisis, a random glucose >/= 200 mg/dl is diagnostic for diabetes. In the absence of unequivocal hyperglycemia, results should be confirmed by repeat testing. The classification and Diagnosis of Diabetes Diabetes Care 2021; 46: S19-S40. Current interpretive data was last revised 2022 Calcium 10.2 8.5 - 10.3 mg/dL [facility] ([place]) Bilirubin, total 0.3 0.1 - 1.2 mg/dL [facility] ([place]) Protein, pl 8.4 6.5 - 8.5 g/dL [facility] ([place]) Albumin 5.1(H) 3.5 - 5.0 g/dL [facility] ([place]) Alk phos 142(H) 40 - 130 Units/L [facility] ([place]) ALT 14 7 - 45 Units/L [facility] ([place]) AST 26 10 - 45 Units/L [facility] ([place]) Blood 12/18/2024 9:16 AM CDT 12/18/2024 9:20 AM CDT us Black Sears MD LAB BLOOD ORDERABLES Final Result [facility] ([place]) [address] [place] [address] * (ABNORMAL) Differential, auto (12/18/2024 8:50 AM CDT) Neutrophil abs 12.58(H) 1.50 - 6.50 K/cumm Imm gran abs 0.24(H) 0.00 - 0.10 K/cumm [facility] ([place]) Lymphocyte abs 2.20 0.80 - 3.30 K/cumm [facility] ([place]) Monocyte abs 1.11(H) 0.20 - 0.80 K/cumm [facility] ([place]) Eosinophil abs 0.00 0.00 - 0.50 K/cumm [facility] ([place]) Basophil abs 0.04 0.00 - 0.10 K/cumm [facility] ([place]) Neutrophil pct 77.8 % [facility] ([place]) Comment: Interpretive Data Percent cell count reference ranges are not reported, since discordance with absolute values may lead to misinterpretation of CBC data. Current Interpretive Data was last revised on 2017. Imm gran pct 1.5 % [facility] ([place]) Comment: Interpretive Data Percent cell count reference ranges are not reported, since discordance with absolute values may lead to misinterpretation of CBC data. Current Interpretive Data was last revised on 2017. Lymphocyte pct 13.6 % [facility] ([place]) Comment: Interpretive Data Percent cell count reference ranges are not reported, since discordance with absolute values may lead to misinterpretation of CBC data. Current Interpretive Data was last revised on 2017. Monocyte pct 6.9 % [facility] ([place]) Comment: Interpretive Data Percent cell count reference ranges are not reported, since discordance with absolute values may lead to misinterpretation of CBC data. Current Interpretive Data was last revised on 2017. Eosinophil pct 0.0 % [facility] ([place]) Comment: Interpretive Data Percent cell count reference ranges are not reported, since discordance with absolute values may lead to misinterpretation of CBC data. Current Interpretive Data was last revised on 2017. Basophil pct 0.2 % [facility] ([place]) Comment: Interpretive Data Percent cell count reference ranges are not reported, since discordance with absolute values may lead to misinterpretation of CBC data. Current Interpretive Data was last revised on 2017. Blood 12/18/2024 8:50 AM CDT 12/18/2024 8:53 AM CDT us Black Sears MD LAB BLOOD ORDERABLES Final Result [facility]) [address] Department [place] [address] * (ABNORMAL) CBC with auto differential (12/18/2024 8:50 AM CDT) WBC 16.17(H) 3.80 - 9.90 K/cumm Hgb 12.7 11.9 - 15.5 g/dL [facility]) Hct 36.8 35.6 - 45.5 % [facility]) Plt 438(H) 150 - 400 K/cumm [facility]) MPV 11.0 9.1 - 12.3 fL [facility]) RBC 4.75 3.90 - 5.20 M/cumm [facility]) MCV 77.5(L) 81.3 - 96.4 fL [facility]) MCH 26.7(L) 27.1 - 33.3 pg [facility]) MCHC 34.5 32.3 - 35.7 g/dL [facility]) RDW CV 14.1 11.1 - 14.9 % [facility]) RDW SD 39.7 35.7 - 48.1 fL [facility]) NRBC abs 0.00 0.00 - 0.01 K/cumm [facility] ([place]) Blood 12/18/2024 8:50 AM CDT 12/18/2024 8:53 AM CDT us Black Sears MD LAB BLOOD ORDERABLES Final Result [facility] ([place]) [address] Department [place] [address] * Urinalysis reflex to microscopic and culture Urine (12/16/2024 12:04 PM CDT) Color, ur Yellow Yellow Clarity, ur Clear Clear [facility] ([place]) Specific gravity, ur 1.018 1.003 - 1.030 [facility] ([place]) pH, urine 8.0 [facility] ([place]) Comment: Interpretive Data U rine pH is affected by diet, medications, systemic acid-base disturbances, and renal tubular function. pH may affect urinary stone formation. For example, urine pH below 6.0 may help reduce the tendency for calcium phosphate stones and pH greater than 6.0 may reduce the tendency for uric acid stone formation. Source: [facility] [employer] Current Interpretive Data was last revised on 2017 Protein, ur ql Trace Negative [facility] ([place]) Glucose, ur ql Negative Negative [facility] ([place]) Ketones, ur Negative Negative [facility] ([place]) Bilirubin, ur Negative Negative [facility] ([place]) Blood, ur Negative Negative [facility] ([place]) Urobilinogen, ur <2.0 <2.0 mg/dL [facility] ([place]) Nitrite, ur Negative Negative [facility] ([place]) Leukocyte esterase, ur Negative Negative [facility] ([place]) UA reflex comment Reflex conditions for microscopic UA and culture not met. [facility]) Urine 12/16/2024 12:0 4 PM CDT 12/16/2024 12:08 PM CDT Farhan Mckeon MD LAB MICROBIOLOGY - GENERAL ORDSoco [facility] Final Result [facility] ([place]) [address] Department [place] [address] * CT Abdomen Pelvis WO Contrast (12/16/2024 11:12 AM CDT) Anatomical Region Laterality Modality Body N/A Computed Tomogra phy 12/16/2024 11:1 9 AM CDT Impressions 12/16/2024 11:19 AM CDT 1. Mucosal thickening and submucosal fatty deposition of the colon, possibly representing sequelae of prior colitis. 2. Small hiatal hernia. 3. Groundglass opacities noted within the right lower lung, may represent sequelae of aspiration. Infectious/inflammatory etiologies are also possible. These findings are only partially visualized. Electronically signed by: Rito Doherty M.D. Narrative 12/16/2024 11:19 AM CDT EXAMINATION: Computed tomography of the abdomen and pelvis without intravenous contrast HISTORY: Epigastric pain TECHNIQUE: Transaxial computed tomographic images of the abdomen and pelvis were obtained without intravenous contrast according to the standard protocol. COMPARISON: None FINDINGS: Partially visualized within the right lung base anteriorly, there is groundglass opacities noted. There is presumed surgical suture noted and partially visualized. Pleural thickening/scarring is also present. Emphysematous changes. Normal-sized configuration of the liver. No discrete hepatic lesions. The gallbladder is present without intrahepatic or extrahepatic ductal dilation. The adrenal glands, spleen, and pancreas are unremarkable. There is no hydronephrosis. No nephrolithiasis. Small hiatal hernia. There is no bowel obstruction. There is mild mucosal thickening of the colon with submucosal fatty deposition. Minimal colorectal stool volume is noted within the colon. There is no bowel obstruction. The appendix is normal. Calcified uterine fibroid is noted. No suspicious adnexal lesions. Trace fluid noted within the pelvis, likely physiologic. No focal bladder wall thickening. No free air. No acute or aggressive osseous abnormalities. Aortobiiliac system is normal caliber. Multifocal calcified atherosclerotic disease is present. No abdominal or pelvic lymphadenopathy is noted. Procedure Note Rito Doherty MD - 12/16/2024 EXAMINATION: Computed tomography of the abdomen and pelvis without intravenous contrast HISTORY: Epigastric pain TECHNIQUE: Transaxial computed tomographic images of the abdomen and pelvis were obtained without intravenous contrast according to the standard protocol. COMPARISON: None FINDINGS: Partially visualized within the right lung base anteriorly, there is groundglass opacities noted. There is presumed surgical suture noted and partially visualized. Pleural thickening/scarring is also present. Emphysematous changes. Normal-sized configuration of the liver. No discrete hepatic lesions. The gallbladder is present without intrahepatic or extrahepatic ductal dilation. The adrenal glands, spleen, and pancreas are unremarkable. There is no hydronephrosis. No nephrolithiasis. Small hiatal hernia. There is no bowel obstruction. There is mild mucosal thickening of the colon with submucosal fatty deposition. Minimal colorectal stool volume is noted within the colon. There is no bowel obstruction. The appendix is normal. Calcified uterine fibroid is noted. No suspicious adnexal lesions. Trace fluid noted within the pelvis, likely physiologic. No focal bladder wall thickening. No free air. No acute or aggressive osseous abnormalities. Aortobiiliac system is normal caliber. Multifocal calcified atherosclerotic disease is present. No abdominal or pelvic lymphadenopathy is noted. IMPRESSION: 1. Mucosal thickening and submucosal fatty deposition of the colon, possibly representing sequelae of prior colitis. 2. Small hiatal hernia. 3. Groundglass opacities noted within the right lower lung, may represent sequelae of aspiration. Infectious/inflammatory etiologies are also possible. These findings are only partially visualized. Electronically signed by: Rito Doherty M.D. Farhan Mckeon MD IMG CT PROCEDURES Final Result * eGFR (12/16/2024 10:32 AM CDT) eGFR 89 >=60 mL/min/1. 73 m2 Comment: Interpretive Data Reference Interval Normal >/= 90 mL/min/1.73m2 Mildly decreased* 60 - 89 mL/min/1.73m2 Mildly to moderately decreased 45 - 59 mL/min/1.73m2 Moderately to severely decreased 30 - 44 mL/min/1.73m2 Severely decreased 15 - 29 mL/min/1.73m2 Kidney Failure < 15 mL/min/1.73m2 *Relative to young adult level Estimated glomerular filtration rate is determined by the 2020 CKD-EPI equation recommended by the National Kidney [employer] (A Unifying Approach to GFR Estimation: Recommendations of the NKF-ASK Task Force on Reassessing the Inclusion of Race in Diagnosing Kidney Disease, JASN 202). The CKD-EPI equation should not be used for patients with unstable renal function and has not been validated in children and those over 70. Current interpretive data was last reviewed 2021. Blood 12/16/2024 10:3 2 AM CDT 12/16/2024 10:34 AM CDT us Farhan Mckeon MD LAB BLOOD ORDERABLES Final Resu lt [facility] ([place]) [address] Department [place] [address] * (ABNORMAL) Differential, auto (12/16/2024 10:32 AM CDT) Neutrophil abs 8.87(H) 1.50 - 6.50 K/cumm Imm gran abs 0.04 0.00 - 0.10 K/cumm [facility] ([place]) Lymphocyte abs 2.72 0.80 - 3.30 K/cumm [facility] ([place]) Monocyte abs 0.73 0.20 - 0.80 K/cumm [facility] ([place]) Eosinophil abs 0.14 0.00 - 0.50 K/cumm [facility]) Basophil abs 0.05 0.00 - 0.10 K/cumm [facility] ([place]) Neutrophil pct 70.7 % [facility] ([place]) Comment: Interpretive Data Percent cell count reference ranges are not reported, since discordance with absolute values may lead to misinterpretation of CBC data. Current Interpretive Data was last revised on 2017. Imm gran pct 0.3 % [facility]) Comment: Interpretive Data Percent cell count reference ranges are not reported, since discordance with absolute values may lead to misinterpretation of CBC data. Current Interpretive Data was last revised on 2017. Lymphocyte pct 21.7 % [facility] ([place]) Comment: Interpretive Data Percent cell count reference ranges are not reported, since discordance with absolute values may lead to misinterpretation of CBC data. Current Interpretive Data was last revised on 2017. Monocyte pct 5.8 % [facility] ([place]) Comment: Interpretive Data Percent cell count reference ranges are not reported, since discordance with absolute values may lead to misinterpretation of CBC data. Current Interpretive Data was last revised on 2017. Eosinophil pct 1.1 % [facility] ([place]) Comment: Interpretive Data Percent cell count reference ranges are not reported, since discordance with absolute values may lead to misinterpretation of CBC data. Current Interpretive Data was last revised on 2017. Basophil pct 0.4 % [facility] ([place]) Comment: Interpretive Data Percent cell count reference ranges are not reported, since discordance with absolute values may lead to misinterpretation of CBC data. Current Interpretive Data was last revised on 2017. Blood 12/16/2024 10:3 2 AM CDT 12/16/2024 10:34 AM CDT us Farhan Mckeon MD LAB BLOOD ORDERABLES Final Resu lt [facility] ([place]) [address] [facility] [address] [place] [address] * (ABNORMAL) CBC with auto differential (12/16/2024 10:32 AM CDT) WBC 12.55(H) 3.80 - 9.90 K/cumm Hgb 12.6 11.9 - 15.5 g/dL [facility] ([place]) Hct 37.9 35.6 - 45.5 % [facility] ([place]) Plt 375 150 - 400 K/cumm [facility] ([place]) MPV 10.9 9.1 - 12.3 fL [facility] ([place]) RBC 4.67 3.90 - 5.20 M/cumm [facility] ([place]) MCV 81.2(L) 81.3 - 96.4 fL [facility] ([place]) MCH 27.0(L) 27.1 - 33.3 pg [facility] ([place]) MCHC 33.2 32.3 - 35.7 g/dL [facility]) RDW CV 14.4 11.1 - 14.9 % [facility]) RDW SD 42.6 35.7 - 48.1 fL [facility] ([place]) NRBC abs 0.00 0.00 - 0.01 K/cumm [facility] ([place]) Blood Venous blood specimen / Unknown 12/16/2024 10:32 AM CDT 12/16/2024 10:34 AM CDT Farhan Mckeon MD LAB BLOOD ORDERABLES Final Resu lt Performing Organization Address City/[facility]/ZIP Co de Phone Number [facility]) [address] [place] [address] [place] [address] * Lipase (12/16/2024 10:32 AM CDT) Pathologist [facility] Lipase 29 10 - 99 Units/L Blood 12/16/2024 10:3 2 AM CDT 12/16/2024 10:48 AM CDT Farhan Mckeon MD LAB BLOOD ORDERABLES Final Resu lt Performing Organization Address City/[facility]/ZIP Co de Phone Number [facility]) [address] [place] [address] [place] [address] * (ABNORMAL) Comprehensive metabolic panel (12/16/2024 10:32 AM CDT) Sodium 140 135 - 145 mmol/L Potassium, pl 4.0 3.3 - 4.9 mmol/L [facility] Chloride 102 97 - 110 mmol/L [facility]) CO2 23.0 22.0 - 32.0 mmol/L [facility]) Anion gap 15 2 - 15 mmol/L [facility]) BUN 9 6 - 25 mg/dL [facility]) Creatinine 0.82 0.60 - 1.10 mg/dL [facility]) Glucose 154 70 - 199 mg/dL [facility]) Comment: Interpretive Data Fasting glucose >/= 126 mg/dl is diagnostic for diabetes. Fasting is defined as no caloric intake for at least 8 hours. Fasting glucose between 100 mg/dl to 125 mg/dl is diagnostic of prediabetes. In a patient with classic symptoms of hyperglycemia or hyperglycemic crisis, a random glucose >/= 200 mg/dl is diagnostic for diabetes. In the absence of unequivocal hyperglycemia, results should be confirmed by repeat testing. The classification and Diagnosis of Diabetes Diabetes Care 202; 46: S19-S40. Current interpretive data was last revised 2022 Calcium 10.0 8.5 - 10.3 mg/dL [facility]) Bilirubin, total 0.2 0.1 - 1.2 mg/dL [facility] ([place]) Protein, pl 6.8 6.5 - 8.5 g/dL [facility]) Albumin 4.4 3.5 - 5.0 g/dL [facility]) Alk phos 132(H) 40 - 130 Units/L [facility]) ALT 10 7 - 45 Units/L [facility]) AST 19 10 - 45 Units/L [facility] Blood Venous blood specimen / Unknown 12/16/2024 10:32 AM CDT 12/16/2024 10:34 AM CDT us Farhan Mckeon MD LAB BLOOD ORDERABLES Final Resu lt [facility]) [address] Department of Laboratories [place] [phone] * Diagnostic Mammogram Bilateral W Wally (12/05/2024 2:01 PM CDT) Anatomical Region Laterality Modality Breast Bilateral Mammography 12/05/2024 2:20 PM CDT Impressions 12/05/2024 2:20 PM CDT No mammographic or targeted right breast ultrasound evidence of malignancy. OVERALL FINAL ASSESSMENT: BI-RADS 1: Negative findings MANAGEMENT:Annual screening mammography is recommended. Advise clinical follow-up for the pain, likely postsurgical, deep in the right breast. Findings and recommendations were communicated to the patient on the day of her visit. Electronically signed by: MD Pascual Shultz 12/05/2024 2:20 PM CDT EXAMINATION/TECHNIQUE: Bilateral Digital Diagnostic Mammogram Including CAD and Digital Breast Tomosynthesis.RIGHT Breast Ultrasound Limited HISTORY: Right breast pain deep to the nipple for 8 months, noted since right thoracotomy. COMPARISON: None, baseline FINDINGS: Mammogram: The breasts are heterogenously dense, which may obscure small masses. There are no suspicious masses, suspicious microcalcifications, or areas of architectural distortion. The tissues of the far posterior right deep central breast are primarily fatty. RIGHT Breast Ultrasound:There is no evidence of discrete solid lesion, abnormal acoustical shadowing, or cyst. 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
--- OUTSIDE RECORDS SUMMARY | 2025-03-17 12:19 | XMS_ITS | Referral Summary ---
Author Organization [facility] Address [address] [place] [address] Care Team Providers Care Administration Specialist Name Role Phone AamirBisi PSYCH RN Primary Care Provider + Encounters Date Type Department Care Team Description 02/13/2025 1:52 PM CDT - 02/13/2025 8:51 PM CDT Emergency [facility] Emergency Department [address] [place] [address] Sole Aldrich MD Abdominal pain (Primary Dx); Nausea and vomiting, unspecified vomiting type Discharge Disposition: Discharge to home or self care 02/06/2025 7:13 PM CDT - 02/06/2025 7:15 PM CDT Emergency [facility] Emergency Department [address] [place] [address] Discharge Disposition: Left without being seen 01/15/2025 Telephone [facility] [address] [place] [phone] Eugene Francis DO 01/13/2025 6:28 PM CDT - 01/13/2025 7:25 PM CDT Emergency [facility] Emergency Department [address] [place] [phone] Cellulitis, unspecified cellulitis site (Primary Dx) Discharge Disposition: Discharge to home or self care 01/09/2025 Orders Only [facility] [address] [place] [phone] Humera Hung NP 12/28/2024 1:23 PM CDT - 12/28/2024 6:20 PM CDT Emergency [facility] Emergency Department [address] [place] [phone] Epigastric pain (Primary Dx); Nausea and vomiting, unspecified vomiting type; Hypokalemia due to excessive gastrointestinal loss of potassium Discharge Disposition: Discharge to home or self care 12/18/2024 8:40 AM CDT - 12/18/2024 1:12 PM CDT Emergency [facility] Emergency Department [address] [place] [phone] Black Sears MD Cannabis hyperemesis syndrome concurrent with and due to cannabis abuse (HCC) (Primary Dx) Discharge Disposition: Discharge to home or self care 12/18/2024 Orders Only [facility] [address] [place] [phone] Humera Hung NP 12/16/2024 10:21 AM CDT - 12/16/2024 2:41 PM CDT Emergency [facility] Emergency Department [address] [place] [phone] Farhan Mckeon MD Nausea and vomiting, unspecified vomiting type (Primary Dx); Abdominal pain Discharge Disposition: Discharge to home or self care from Last 3 Months Allergies Active Allergy Reactions Criticality Noted Date [...] than 10 mm, repeat in 7-10 years. 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 Stat report by [facility] Electronically signed by: Bello Machado M.D. Narrative [...] prior study of 12/28/2024. Stat report by [facility] Electronically signed by: Bello Machado M.D. Sole Aldrich MD IM CT PROCEDURES Final Result * (ABNORMAL) Drugs [...] 2023. Barbiturates, ur Not Detected CutOff 200ng/mL [facility] Comment: Interpretive Data - Barbiturates: Samples containing greater than 200 ng/mL secobarbital or other cross-reacting barbiturate compounds are reported as positive. False positive and false negative results are possible. Confirmatory testing required for definitive results. Current Interpretive Data was last reviewed 2023. Benzodiazepines, ur Not Detected CutOff 100ng/mL [facility] Comment: Interpretive Data - Benzodiazepines: Samples containing [...] 2024. Methadone, ur Not Detected CutOff 300ng/mL [facility] Comment: Interpretive Data - Methadone: Samples containing greater than 300 ng/mL d,l-methadone or other cross-reacting compounds are reported as positive. False positive and false negative results are possible. Confirmatory testing required for definitive results. Current Interpretive Data was last reviewed 2023. Opiates, ur Not Detected CutOff 300ng/mL [facility] Comment: Interpretive Data - Opiates: Samples containing greater than 300 ng/mL morphine or other cross-reacting compounds are reported as positive. False positive and false negative results are possible. Confirmatory testing required for definitive results. Current Interpretive Data was last reviewed 2023. Oxycodone, ur Not Detected CutOff 100ng/mL [facility] Comment: Interpretive Data - Oxycodone: Samples containing greater than 100 ng/mL oxycodone or other cross-reacting compounds are reported as positive. False positive and false negative results are possible. Confirmatory testing required for definitive results. Current Interpretive Data was last reviewed 2023. Phencyclidine, ur Not Detected CutOff 25 ng/mL [facility] Comment: Interpretive Data - Phencyclidine: Samples containing greater than 25 ng/mL phencyclidine or other cross-reacting compounds are reported as positive. False positive and false negative results are possible. Confirmatory testing required for definitive results. Current Interpretive Data was last reviewed 2023. Urine Creatinine 54 mg/dL [facility] Comment: Interpretive Data Urine Creatinine: < 10 mg/dL is extremely dilute = or > 10 but < 20 mg/dL is dilute = or > 20 mg/dL is normal Current Interpretive Data was last revised on 2017. Urine 02/13/2025 6:32 PM CDT 02/13/2025 6:44 PM CDT Narrative [facility] - 02/13/2025 7:28 PM CDT Drug of Abuse screening is performed by immunoassay for medical purposes only. This is not to be used for Pain Management purposes. Sole Aldrich MD LAB URINE ORDERABLES [facility] Result [facility] [address] Department [place] [address] * (ABNORMAL) Urinalysis reflex to microscopic and culture Urine (02/13/2025 6:05 PM CDT) Color, ur Yellow Yellow Clarity, ur Turbid(A) Clear [facility] Specific gravity, ur 1.016 1.003 - 1.030 [facility] pH, urine 8.5 [facility] Comment: Interpretive Data U rine pH is affected by diet, medications, systemic acid-base disturbances, and renal tubular function. pH may affect urinary stone formation. For example, urine pH below 6.0 may help reduce the tendency for calcium phosphate stones and pH greater than 6.0 may reduce the tendency for uric acid stone formation. Source: [facility] Current Interpretive Data was last revised on 2017 Protein, ur ql Trace Negative [facility] Glucose, ur ql Trace(A) Negative [facility] Ketones, ur Trace Negative [facility] Bilirubin, ur Negative Negative [facility] Blood, ur Negative Negative [facility] Urobilinogen, ur <2.0 <2.0 mg/dL [facility] Nitrite, ur Negative Negative [facility] Leukocyte esterase, ur Negative Negative [facility] UA reflex comment Reflex conditions for microscopic UA and culture not met. [facility] Urine 02/13/2025 6:05 PM CDT 02/13/2025 6:07 PM CDT us Sole Aldrich MD LAB MICROBIOLOGY - GENE RAL ORDERABLES Final Result [facility] [address] Department [place] [address] * eGFR (02/13/2025 2:42 PM CDT) eGFR [...] 2:42 PM CDT 02/13/2025 2:54 PM CDT us Sole Aldrich MD LAB BLOOD ORDERABLES Fi nal Result [facility] [address] [place] [address] * (ABNORMAL) Differential, auto (02/13/2025 2:42 PM CDT) Neutrophil abs 10.47(H) 1.50 - 6.50 K/cumm Imm gran abs 0.06 0.00 - 0.10 K/cumm [facility] Lymphocyte abs 1.25 0.80 - 3.30 K/cumm [facility] Monocyte abs 0.41 0.20 - 0.80 [facility] Eosin[facility] abs 0.00 0.00 - 0.50 K/cumm [facility] Basophil abs 0.04 0.00 - 0.10 K/cumm [facility] Neutrophil pct 85.6 % [facility] Comment: Interpretive Data Percent cell count reference ranges are not reported, since discordance with absolute values may lead to misinterpretation of CBC data. Current Interpretive Data was last revised on 2017. Imm gran pct 0.5 % [facility] Comment: Interpretive Data Percent cell count reference ranges are not reported, since discordance with absolute values may lead to misinterpretation of CBC data. Current Interpretive Data was last revised on 2017. Lymphocyte pct 10.2 % [facility] Comment: Interpretive Data Percent cell count reference ranges are not reported, since discordance with absolute values may lead to misinterpretation of CBC data. Current Interpretive Data was last revised on 2017. Monocyte pct 3.4 % [facility] Comment: Interpretive Data Percent cell count reference ranges are not reported, since discordance with absolute values may lead to misinterpretation of CBC data. Current Interpretive Data was last revised on 2017. Eosinophil pct 0.0 % [facility] Comment: Interpretive Data Percent cell count reference ranges are not reported, since discordance with absolute values may lead to misinterpretation of CBC data. Current Interpretive Data was last revised on 2017. Basophil pct 0.3 % [facility] Comment: Interpretive Data Percent cell count reference ranges are not reported, since discordance with absolute values may lead to misinterpretation of CBC data. Current Interpretive Data was last revised on 2017. Blood 02/13/2025 2:42 PM CDT 02/13/2025 2:54 PM CDT us Sole Aldrich MD LAB BLOOD ORDERABLES Fi nal Result [facility] [address] Department [place] [address] * (ABNORMAL) CBC with auto differential (02/13/2025 2:42 PM CDT) WBC 12.23(H) 3.80 - 9.90 K/cumm Hgb 12.5 11.9 - 15.5 g/dL [facility] Hct 38.2 35.6 - 45.5 % [facility] Plt 295 150 - 400 K/cumm [facility] MPV 11.6 9.1 - 12.[address] [facility] RBC 4.65 3.90 - 5.20 M/cumm [facility] MCV 82.2 81.3 - 96.[address] [facility] MCH 26.9(L) 27.1 - 33.[address] [facility] MCHC 32.7 32.3 - 35.7 g/dL [facility] RDW CV 14.4 11.1 - 14.9 % [facility] RDW SD 43.0 35.7 - 48.[address] [facility] NRBC abs 0.00 0.00 - 0.01 K/cumm [facility] Blood Venous blood specimen / Unknown 02/13/2025 2:42 PM CDT 02/13/2025 2:54 PM CDT Sole Aldrich MD LAB BLOOD ORDERABLES Fi nal Result [facility] [address] Department [place] [address] * Lipase (02/13/2025 2:42 PM CDT) Pathologist [facility] Lipase 14 10 - 99 Units/L Blood Venous blood specimen / Unknown 02/13/2025 2:42 PM CDT 02/13/2025 2:54 PM CDT Sole Aldrich MD LAB BLOOD ORDERABLES Fi nal Result Performing Organization Address [facility] [address]/[facility] Co de Phone Number [facility] [address] [place] [address] * (ABNORMAL) Comprehensive metabolic panel (02/13/2025 2:42 PM CDT) Sodium 140 135 - 145 mmol/L Potassium, pl 3.8 3.3 - 4.9 mmol/L [facility] Chloride 100 97 - 110 mmol/L [facility] CO2 21(L) 22 - 32 mmol/L [facility] Anion gap 19(H) 2 - 15 mmol/L [facility] BUN 9 6 - 25 mg/dL [facility] Creatinine 0.67 0.60 - 1.10 mg/dL [facility] Glucose 139 70 - 199 mg/dL [facility] Comment: Interpretive Data Fasting glucose >/= 126 [...] LAB BLOOD ORDERABLES Fi nal Result [facility] [address] Department of Laboratories [place] [id number] * POCT Rapid HIV Antibody Community Screening-[place] Eligible (01/13/2025 7:01 PM CDT) [facility] Rapid HIV, POC Negative Negative Lot Number [id number] QC Control Line Acceptable Blood 01/13/2025 7:01 PM CDT Maurice Shoemaker MD POINT OF CARE TEST ORDERABLES Final Result * POCUS Abdominal Wall/Back Soft Tissue (01/13/2025 6:54 PM CDT) Anatomical Region Laterality Modality Ultrasound 01/13/2025 6:44 PM CDT Narrative 01/14/2025 10:15 PM CDT Performed by: Jose Candelario Soft Tissue/MSK: Exam Information: Exam type: Diagnostic Indication(s) for Exam: Swelling Location : Upper extremity Side: Left Findings: Tissue thickness: Thickened [place]: Increased Tissue echogenicity: Increased Subcutaneous collection: Present If present diameter (mm)=: 10 Subcutaneous gas/air: Absent Fascial fluid: Absent Muscle appearance: Normal Interpretation: Abscess Location : small [id number] area of ill-defined fluid, possible developing abscess, [...] Shoemaker MD - 01/14/2025 Performed by: Jose Candelario Soft Tissue/MSK: Exam Information: Exam type: Diagnostic Indication(s) for Exam: Swelling Location : Upper extremity Side: Left Findings: Tissue thickness: Thickened Cobblestoning: Increased Tissue echogenicity: Increased Subcutaneous collection: Present If present diameter (mm)=: 10 Subcutaneous gas/air: Absent Fascial fluid: Absent Muscle appearance: Normal Interpretation: Abscess Location : small [id number] area of ill-defined fluid, possibledeveloping abscess, no [...] ur Yellow Yellow Clarity, ur Clear Clear [facility] ([place]) Specific gravity, ur >1.050(A) 1.003 - 1.030 [facility] ([place]) Comment:Specific [place] is high due to contrast. pH, urine 8.5 [facility] ([place]) Comment: Interpretive Data U rine pH is affected by diet, medications, systemic acid-base disturbances, and renal tubular function. pH may affect urinary stone formation. For example, urine pH below 6.0 may help reduce the tendency for calcium phosphate stones and pH greater than 6.0 may reduce the tendency for uric acid stone formation. Source: [facility] Current Interpretive Data was last revised on 2017 Protein, ur ql Trace Negative [facility] ([place]) Glucose, ur ql Negative Negative [facility] ([place]) Ketones, ur 1+(A) Negative [facility] ([place]) Bilirubin, ur Negative Negative [facility] ([place]) Blood, ur Negative Negative [facility] ([place]) Urobilinogen, ur <2.0 <2.0 mg/dL [facility] ([place]) Nitrite, ur Negative Negative [facility] ([place]) Leukocyte esterase, ur Negative Negative [facility] ([place]) UA reflex comment Reflex conditions for microscopic UA and culture not met. [facility] ([place]) Urine 12/28/2024 5:40 PM CDT 12/28/2024 5:43 PM CDT us Nate VALLE LAB MICROBIOLOGY - GENERAL ORDERABLES Final Result [facility] ([place]) [address] [facility] [address] Department [place] [address] * ECG 12 lead (12/28/2024 2:55 PM CDT) 12/28/2024 2:55 PM CDT Narrative [facility] - 12/28/2024 6:44 PM CDT Vent Rate: 84 bpm RR Interval: 708 msec [place] Interval: 128 msec QRS Duration: 84 msec QT Interval: 407 msec QTC Interval: 448 msec P-R-T [place]: 70 - 71 - 57 degrees IMPRESSION: SINUS RHYTHM POSSIBLE LEFT ATRIAL ENLARGEMENT BORDERLINE ECG NO PREVIOUS TRACING AVAILABLE FOR COMPARISON Electronically Signed By: Dr. Mohamud Mitchell M.D. us Nate VALLE ECG ORDERABLES Final Resu lt [facility] * CT Abdomen Pelvis W Contrast (12/28/2024 [...] Nate VALLE LAB BLOOD ORDERABLES Final Result [facility] [address] [facility] Department [place] [address] * (ABNORMAL) Differential, auto (12/28/2024 1:57 PM CDT) Neutrophil abs 10.51(H) 1.50 - 6.50 K/cumm Imm gran abs 0.07 0.00 - 0.10 K/cumm [facility] ([place]) Lymphocyte abs 2.39 0.80 - 3.30 K/cumm [facility] ([place]) Monocyte abs 1.41(H) 0.20 - 0.80 K/cumm [facility] ([place]) Eosinophil abs 0.00 0.00 - 0.50 K/cumm [facility] ([place]) Basophil abs 0.04 0.00 - 0.10 K/cumm [facility] ([place]) Neutrophil pct 72.8 % [facility] Comment: Interpretive Data Percent cell count reference ranges are not reported, since discordance with absolute values may lead to misinterpretation of CBC data. Current Interpretive Data was last revised on 2017. Imm gran pct 0.5 % [facility] ([place] Comment: Interpretive Data Percent cell count reference ranges are not reported, since discordance with absolute values may lead to misinterpretation of CBC data. Current Interpretive Data was last revised on 2017. Lymphocyte pct 16.6 % [facility] Comment: Interpretive Data Percent cell count reference ranges are not reported, since discordance with absolute values may lead to misinterpretation of CBC data. Current Interpretive Data was last revised on 2017. Monocyte pct 9.8 % [facility] ([place] Comment: Interpretive Data Percent cell count reference ranges are not reported, since discordance with absolute values may lead to misinterpretation of CBC data. Current Interpretive Data was last revised on 2017. Eosinophil pct 0.0 % [facility] Comment: Interpretive Data Percent cell count reference ranges are not reported, since discordance with absolute values may lead to misinterpretation of CBC data. Current Interpretive Data was last revised on 2017. Basophil pct 0.3 % [facility] ([place]) Comment: Interpretive Data Percent cell count reference ranges are not reported, since discordance with absolute values may lead to misinterpretation of CBC data. Current Interpretive Data was last revised on 2017. Blood 12/28/2024 1:57 PM CDT 12/28/2024 2:01 PM CDT us Nate VALLE LAB BLOOD ORDERABLES Final Result [facility] ([place]) [address] [facility] Department [place] [address] * (ABNORMAL) CBC with auto differential (12/28/2024 1:57 PM CDT) WBC 14.42(H) 3.80 - 9.90 K/cumm Hgb 13.0 11.9 - 15.5 g/dL [facility] ([place]) Hct 37.8 35.6 - 45.5 % [facility] ([place]) Plt 513(H) 150 - 400 K/cumm [facility] ([place]) MPV 10.4 9.1 - 12.3 fL [facility] ([place]) RBC 4.91 3.90 - 5.20 M/cumm [facility] ([place]) MCV 77.0(L) 81.3 - 96.4 fL [facility] ([place]) MCH 26.5(L) 27.1 - 33.3 pg [facility] ([place]) MCHC 34.4 32.3 - 35.7 g/dL [facility] ([place]) RDW CV 13.6 11.1 - 14.9 % [facility] ([place]) RDW SD 38.5 35.7 - 48.1 fL [facility] ([place]) NRBC abs 0.00 0.00 - 0.01 K/cumm [facility]) Blood Venous blood specimen / Unknown 12/28/2024 1:57 PM CDT 12/28/2024 2:01 PM CDT Nate VLALE LAB BLOOD ORDERABLES Final Result [facility]) [address] [place] [address] Department [place] [address] * (ABNORMAL) Phosphorus (12/28/2024 1:57 PM CDT) Phosphorus, pl 2.2(L) 2.3 - 4.5 mg/dL Blood 12/28/2024 1:57 PM CDT 12/28/2024 2:33 PM CDT Naet VALLE LAB BLOOD ORDERABLES Final Result Performing Organization Address City/[facility] [address]/ZIP Co de Phone Number [facility]) [address] [place] [address] Department [place] [address] * Magnesium (12/28/2024 1:57 PM CDT) Magnesium 1.5 1.4 - 2.5 mg/dL Blood 12/28/2024 1:57 PM CDT 12/28/2024 2:33 PM CDT Nate VALLE LAB BLOOD ORDERABLES Final Result [facility]) [address] [place] [address] Department [place] [address] * Lipase (12/28/2024 1:57 PM CDT) Lipase 18 10 - 99 Units/L Blood 12/28/2024 1:57 PM CDT 12/28/2024 2:13 PM CDT us Nate VALLE LAB BLOOD ORDERABLES Final Result [facility] [address] [place] [address] * (ABNORMAL) Comprehensive metabolic panel (12/28/2024 1:57 PM CDT) Pathologist [facility] Sodium 135 135 - 145 mmol/L Potassium, pl 3.0(L) 3.3 - 4.9 mmol/L [facility] Chloride 89(L) 97 - 110 mmol/L [facility] ([place]) CO2 24.0 22.0 - 32.0 mmol/L [facility] ([place]) Anion gap 22(H) 2 - 15 mmol/L [facility] ([place]) BUN 19 6 - 25 mg/dL [facility]) Creatinine 1.03 0.60 - 1.10 mg/dL [facility] ([place]) Glucose 114 70 - 199 mg/dL [facility] ([place]) Comment: Interpretive Data Fasting glucose >/= 126 [...] 2022 Calcium 9.9 8.5 - 10.3 mg/dL [facility] ([place]) Bilirubin, total 0.7 0.1 - 1.2 mg/dL [facility] ([place]) Protein, pl 8.0 6.5 - 8.5 g/dL [facility] ([place]) Albumin 4.6 3.5 - 5.0 g/dL [facility] ([place]) Alk phos 125 40 - 130 Units/L [facility]) ALT 12 7 - 45 Units/L [facility] ([place]) AST 23 10 - 45 Units/L [facility] ([place]) Blood Venous blood specimen / Unknown 12/28/2024 1:57 PM CDT 12/28/2024 2:01 PM CDT us Nate VALLE LAB BLOOD ORDERABLES Final Result [facility] ([place]) [address] Department [place] [address] * eGFR (12/18/2024 9:16 AM CDT) eGFR [...] MD LAB BLOOD ORDERABLES Final Result [facility] [address] [facility] [place] [address] * Lipase (12/18/2024 9:16 AM CDT) Pathologist [facility] Lipase 23 10 - 99 Units/L Blood 12/18/2024 9:16 AM CDT 12/18/2024 9:20 AM CDT Black Sears MD LAB BLOOD ORDERABLES Final Result Performing Organization Address [facility] [address]/[facility] Co de Phone Number [facility] [address] [facility] Department [place] [address] * (ABNORMAL) Comprehensive metabolic panel (12/18/2024 9:16 AM CDT) [facility] Sodium 137 135 - 145 mmol/L Potassium, pl 3.0(L) 3.3 - 4.9 mmol/L [facility]) Chloride 96(L) 97 - 110 mmol/L [facility] CO2 19.4(L) 22.0 - 32.0 mmol/L [facility]) Anion gap 22(H) 2 - 15 mmol/L [facility] BUN 22 6 - 25 mg/dL [facility] Creatinine 1.08 0.60 - 1.10 mg/dL [facility] Glucose 120 70 - 199 mg/dL [facility] ([place]) Comment: Interpretive Data Fasting glucose >/= 126 [...] 2022 Calcium 10.2 8.5 - 10.3 mg/dL [facility] Bilirubin, total 0.3 0.1 - 1.2 mg/dL [facility] Protein, pl 8.4 6.5 - 8.5 g/dL [facility]) Albumin 5.1(H) 3.5 - 5.0 g/dL [facility]) Alk phos 142(H) 40 - 130 Units/L [facility] ALT 14 7 - 45 Units/L [facility] AST 26 10 - 45 Units/L [facility] Blood 12/18/2024 9:16 AM CDT 12/18/2024 9:20 AM CDT Black Sears MD LAB BLOOD ORDERABLES Final Result [facility] ([place]) [address] Department [place] [address] * (ABNORMAL) Differential, auto (12/18/2024 8:50 AM CDT) Neutrophil abs 12.58(H) 1.50 - 6.50 K/cumm Imm gran abs 0.24(H) 0.00 - 0.10 K/cumm [facility] ([place]) Lymphocyte abs 2.20 0.80 - 3.30 K/cumm [facility] ([place] Monocyte abs 1.11(H) 0.20 - 0.80 K/cumm [facility] Eosinophil abs 0.00 0.00 - 0.50 K/cumm [facility] [facility] Basophil abs 0.04 0.00 - 0.10 K/cumm [facility] ([place]) Neutrophil pct 77.8 % [facility] ([place]) Comment: Interpretive Data Percent cell count reference ranges are not reported, since discordance with absolute values may lead to misinterpretation of CBC data. Current Interpretive Data was last revised on 2017. Imm gran pct 1.5 % [facility] ([place]) Comment: Interpretive Data Percent cell count reference ranges are not reported, since discordance with absolute values may lead to misinterpretation of CBC data. Current Interpretive Data was last revised on 2017. Lymphocyte pct 13.6 % [facility] ([place]) Comment: Interpretive Data Percent cell count reference ranges are not reported, since discordance with absolute values may lead to misinterpretation of CBC data. Current Interpretive Data was last revised on 2017. Monocyte pct 6.9 % [facility] ([place]) Comment: Interpretive Data Percent cell count reference ranges are not reported, since discordance with absolute values may lead to misinterpretation of CBC data. Current Interpretive Data was last revised on 2017. Eosinophil pct 0.0 % [facility] ([place]) Comment: Interpretive Data Percent cell count reference ranges are not reported, since discordance with absolute values may lead to misinterpretation of CBC data. Current Interpretive Data was last revised on 2017. Basophil pct 0.2 % [facility] ([place]) Comment: Interpretive Data Percent cell count reference ranges are not reported, since discordance with absolute values may lead to misinterpretation of CBC data. Current Interpretive Data was last revised on 2017. Blood 12/18/2024 8:50 AM CDT 12/18/2024 8:53 AM CDT us Black Sears MD LAB BLOOD ORDERABLES [facility] ([place]) [address] Department of Laboratories [place] [address] * (ABNORMAL) CBC with auto differential (12/18/2024 8:50 AM CDT) WBC 16.17(H) 3.80 - 9.90 K/cumm Hgb 12.7 11.9 - 15.5 g/dL [facility] ([place]) Hct 36.8 35.6 - 45.5 % [facility] ([place]) Plt 438(H) 150 - 400 K/cumm [facility] ([place]) MPV 11.0 9.1 - 12.3 fL [facility] ([place]) RBC 4.75 3.90 - 5.20 M/cumm [facility] ([place]) MCV 77.5(L) 81.3 - 96.4 fL [facility] ([place]) MCH 26.7(L) 27.1 - 33.3 pg [facility] ([place]) MCHC 34.5 32.3 - 35.7 g/dL [facility] ([place]) RDW CV 14.1 11.1 - 14.9 % [facility] ([place]) RDW SD 39.7 35.7 - 48.1 fL [facility] ([place]) NRBC abs 0.00 0.00 - 0.01 K/cumm [facility] ([place]) Blood 12/18/2024 8:50 AM CDT 12/18/2024 8:53 AM CDT Black Sears MD LAB BLOOD ORDERABLES Final Result [facility] ([place]) [address] Department [place] [address] * Urinalysis reflex to microscopic and culture Urine (12/16/2024 12:04 PM CDT) Color, ur Yellow Yellow Clarity, ur Clear Clear [facility] ([place]) Specific gravity, ur 1.018 1.003 - 1.030 [facility] ([place]) pH, urine 8.0 [facility] ([place]) Comment: Interpretive Data U rine pH is affected by diet, medications, systemic acid-base disturbances, and renal tubular function. pH may affect urinary stone formation. For example, urine pH below 6.0 may help reduce the tendency for calcium phosphate stones and pH greater than 6.0 may reduce the tendency for uric acid stone formation. Source: [facility] Current Interpretive Data was last revised on 2017 Protein, ur ql Trace Negative [facility] ([place]) Glucose, ur ql Negative Negative [facility] ([place]) Ketones, ur Negative Negative [facility] ([place]) Bilirubin, ur Negative Negative [facility] Blood, ur Negative Negative [facility] ([place]) Urobilinogen, ur <2.0 <2.0 mg/dL [facility] ([place]) Nitrite, ur Negative Negative [facility] ([place]) Leukocyte esterase, ur Negative Negative [facility] ([place]) UA reflex comment Reflex conditions for microscopic UA and culture not met. [facility] ([place]) Urine 12/16/2024 12:0 4 PM CDT 12/16/2024 12:08 PM CDT us Farhan Mckeon MD LAB MICROBIOLOGY - GENERAL ORDE WALKER Final Result [facility] ([place]) [address] Department [place] [address] * CT Abdomen Pelvis WO Contrast (12/16/2024 [...] 2 AM CDT 12/16/2024 10:34 AM CDT Farhan Mckeon MD LAB BLOOD ORDERABLES Final Resu lt [facility] ([place]) [address] [facility] Department of Laboratories [place] [address] * (ABNORMAL) Differential, auto (12/16/2024 10:32 AM CDT) Neutrophil abs 8.87(H) 1.50 - 6.50 K/cumm Imm gran abs 0.04 0.00 - 0.10 K/cumm [facility] ([place]) Lymphocyte abs 2.72 0.80 - 3.30 K/cumm [facility] ([place]) Monocyte abs 0.73 0.20 - 0.80 K/cumm [facility] ([place]) Eosinophil abs 0.14 0.00 - 0.50 K/cumm [facility] ([place]) Basophil abs 0.05 0.00 - 0.10 K/cumm [facility] ([place]) Neutrophil pct 70.7 % [facility] ([place]) Comment: Interpretive Data Percent cell count reference ranges are not reported, since discordance with absolute values may lead to misinterpretation of CBC data. Current Interpretive Data was last revised on 2017. Imm gran pct 0.3 % [facility] ([place]) Comment: Interpretive Data Percent cell count reference ranges are not reported, since discordance with absolute values may lead to misinterpretation of CBC data. Current Interpretive Data was last revised on 2017. Lymphocyte pct 21.7 % [facility] ([place]) Comment: Interpretive Data Percent cell count reference ranges are not reported, since discordance with absolute values may lead to misinterpretation of CBC data. Current Interpretive Data was last revised on 2017. Monocyte pct 5.8 % [facility] ([place]) Comment: Interpretive Data Percent cell count reference ranges are not reported, since discordance with absolute values may lead to misinterpretation of CBC data. Current Interpretive Data was last revised on 2017. Eosinophil pct 1.1 % [facility] Comment: Interpretive Data Percent cell count reference ranges are not reported, since discordance with absolute values may lead to misinterpretation of CBC data. Current Interpretive Data was last revised on 2017. Basophil pct 0.4 % [facility] ([place]) Comment: Interpretive Data Percent cell count reference ranges are not reported, since discordance with absolute values may lead to misinterpretation of CBC data. Current Interpretive Data was last revised on 2017. Blood 12/16/2024 10:3 2 AM CDT 12/16/2024 10:34 AM CDT us Farhan Mckeon MD LAB BLOOD ORDERABLES Final Resu lt [facility] ([place]) [address] Department of Laboratories [place] [address] * (ABNORMAL) CBC with auto differential (12/16/2024 10:32 AM CDT) WBC 12.55(H) 3.80 - 9.90 K/cumm Hgb 12.6 11.9 - 15.5 g/dL [facility] ([place]) Hct 37.9 35.6 - 45.5 % [facility] ([place]) Plt 375 150 - 400 K/cumm [facility] ([place]) MPV 10.9 9.1 - 12.3 fL [facility] ([place]) RBC 4.67 3.90 - 5.20 M/cumm [facility] ([place]) MCV 81.2(L) 81.3 - 96.4 fL [facility] ([place]) MCH 27.0(L) 27.1 - 33.3 pg [facility] ([place]) MCHC 33.2 32.3 - 35.7 g/dL [facility] ([place]) RDW CV 14.4 11.1 - 14.9 % [facility] ([place]) RDW SD 42.6 35.7 - 48.1 fL [facility] ([place]) NRBC abs 0.00 0.00 - 0.01 K/cumm [facility] ([place]) Blood Venous blood specimen / Unknown 12/16/2024 10:32 AM CDT 12/16/2024 10:34 AM CDT Farhan Mckeon MD LAB BLOOD ORDERABLES Final Resu lt [facility] ([place]) [address] [place] [address] * Lipase (12/16/2024 10:32 AM CDT) Pathologist [facility] Lipase 29 10 - 99 Units/L Blood 12/16/2024 10:3 2 AM CDT 12/16/2024 10:48 AM CDT us Farhan Mckeon MD LAB BLOOD ORDERABLES Final Resu lt [facility] ([place]) [address] Department [place] [address] * (ABNORMAL) Comprehensive metabolic panel (12/16/2024 10:32 AM CDT) Pathologist [facility] Sodium 140 135 - 145 mmol/L Potassium, pl 4.0 3.3 - 4.9 mmol/L [facility] ([place]) Chloride 102 97 - 110 mmol/L [facility] ([place]) CO2 23.0 22.0 - 32.0 mmol/L [facility] ([place]) Anion gap 15 2 - 15 mmol/L [facility] ([place]) BUN 9 6 - 25 mg/dL [facility] ([place]) Creatinine 0.82 0.60 - 1.10 mg/dL [facility] ([place]) Glucose 154 70 - 199 mg/dL [facility] ([place]) Comment: Interpretive Data Fasting glucose >/= [...] 2022 Calcium 10.0 8.5 - 10.3 mg/dL [facility] ([place]) Bilirubin, total 0.2 0.1 - 1.2 mg/dL [facility] ([place]) Protein, pl 6.8 6.5 - 8.5 g/dL [facility] ([place]) Albumin 4.4 3.5 - 5.0 g/dL [facility] ([place]) Alk phos 132(H) 40 - 130 Units/L [facility] ([place]) ALT 10 7 - 45 Units/L [facility] ([place]) AST 19 10 - 45 Units/L [facility] ([place]) Blood Venous blood specimen / Unknown 12/16/2024 10:32 AM CDT 12/16/2024 10:34 AM CDT us Farhan Mckeon MD LAB BLOOD ORDERABLES Final Resu lt [facility] ([place]) [address] Department [place] [address] * Diagnostic Mammogram Bilateral W Wally (12/05/2024 [...] day of her visit. Electronically signed by: Celina Ortega MD Narrative 12/05/2024 2:20 PM CDT EXAMINATION/TECHNIQUE: Bilateral Digital [...] Most Recently Relevant to Health Maintenance Insurance [facility] [employer] [facility] Care Teams Administration Specialist Relationship Specialty Start Date End Date Bisi Rutledge NP [address] [place] [id number] PCP - General Family Medicine 10/26/24
--- OUTSIDE RECORDS SUMMARY | 2025-03-17 12:19 | XMS_ITS | Continuity of Care Document ---
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 Role Phone Gi Orourke MD Unavailable Unavailable Allergies, Adverse Reactions, Alerts Substance Reaction Status Criticality No Known Allergies Active No Inform ation Medications Medication Instructions Dosage Effective Dates (start - stop) Status Comments hydrocodone 5 mg-acetaminophen 325 mg tablet take 1 tablet by oral route every 6 hours as needed for pain 1.00 tablet - Active hydrocodone 7.5 mg-acetaminophen 325 mg tablet take 1 tablet by oral route every 6 hours as needed for pain 1.00 tablet - Active CELEXA (unknown strength) take 1 tablet by oral route every day Not Available - Active VITAMIN D3 (unknown strength) Not Available - Active LIPITOR (unknown strength) take 1 tablet by oral route every day Not Available - Active ASPIRIN (unknown strength) chew 1 tablet by oral route every day Not Available - Active ABILIFY (unknown strength) take 1 tablet by oral route every day Not Available - Active Procedures Procedure Date Completion Of C-30A EST PATIENT VISITOV Therapy No Charge THERAPEUTIC EXERCISES THERAPEUTIC EXERCISES THERAPEUT ACTIVITY POSTOP FOLLOW-UP VISIT01 THERAPEUTIC EXERCISES THERAPEUTIC EXERCISES THERAPEUTIC EXERCISES POSTOP FOLLOW-UP VISIT01 THERAPEUTIC EXERCISES THERAPEUTIC EXERCISES THERAPEUTIC EXERCISES THERAPEUTIC EXERCISES POSTOP FOLLOW-UP VISIT01 OT EVAL MOD COMPLEX 45 MIN THERAPEUTIC EXERCISES Medications - Current Meds Documented Au HAND BASED SPLINT W/DIGIT REL PALM/FNGR TENDN REL PALM/FNGR TENDN REL FNGR CONTRACT EST PATNT OV DTL EXAM THERAPEUTIC EXERCISES MANUAL THERAPY THERAPEUTIC EXERCISES THERAPEUT ACTIVITY WHIRLPOOL THERAPY ULTRASOUND THERAPEUTIC EXERCISES THERAPEUT ACTIVITY WHIRLPOOL THERAPY THERAPEUTIC EXERCISES THERAPEUT ACTIVITY THERAPEUTIC EXERCISES THERAPEUT ACTIVITY WHIRLPOOL THERAPY ULTRASOUND POSTOP FOLLOW-UP VISIT01 THERAPEUTIC EXERCISES THERAPEUT ACTIVITY WHIRLPOOL THERAPY THERAPEUTIC EXERCISES MANUAL THERAPY THERAPEUT ACTIVITY WHIRLPOOL THERAPY THERAPEUTIC EXERCISES MANUAL THERAPY THERAPEUT ACTIVITY WHIRLPOOL THERAPY THERAPEUTIC EXERCISES MANUAL THERAPY THERAPEUT ACTIVITY POSTOP FOLLOW-UP VISIT01 THERAPEUTIC EXERCISES MANUAL THERAPY THERAPEUT ACTIVITY ULTRASOUND THERAPEUTIC EXERCISES MANUAL THERAPY THERAPEUT ACTIVITY THERAPEUTIC EXERCISES MANUAL THERAPY THERAPEUTIC EXERCISES MANUAL THERAPY THERAPEUTIC EXERCISES MANUAL THERAPY THERAPEUTIC EXERCISES MANUAL THERAPY THERAPEUT ACTIVITY SPRING COIL NEOPRENE TUBE POSTOP FOLLOW-UP VISIT01 THERAPEUTIC EXERCISES MANUAL THERAPY THERAPEUT ACTIVITY THERAPEUTIC EXERCISES MANUAL THERAPY THERAPEUTIC EXERCISES MANUAL THERAPY THERAPEUTIC EXERCISES MANUAL THERAPY THERAPEUTIC EXERCISES THERAPEUTIC EXERCISES POSTOP FOLLOW-UP VISIT01 OT EVAL HIGH COMPLEX 60 MIN THERAPEUTIC EXERCISES Medications - Current Meds Documented Ma DBS RESTING THUMB SPICA RPR FNGR/HAND TENDN X-RAY OF FINGER 2 VIEW MIN. NEW PATNT OV MOD COMP Advance Directives Directive Yes / No Effective Date File Name No Information Encounters Encounter Description Practice Location Reason(s) For Visit Diagnoses Date Provider Providers Copied on Encounter [address], [id number] , tel:[phone] [facility] (Formerly [facility])[3] No Information 3 Haven Angelo. [address] [place] [address], [id number]. tel:[phone], [id number] , tel:[phone] [facility] ([facility]3] No Information 3 Haven Dickson [address] [place] [address], [id number]. tel:[phone] Referring Provider: Gi Knutson, [address] [place] [address], [address] . tel:[phone] EST PATIENT VISITOV [address], [id number] , [place] tel:[phone] [facility] Follow Up of L Hand (chief complaint) Laceration of flexor muscle, fascia and tendon of unspecified finger at forearm level, subsequent encounter 3 Haven Angelo. [address], [id number]. tel:[phone] Referring Provider: Gi Knutson, [address], [address] . tel:[phone] [facility] , [address] [place], [id number] , [place] tel:[phone] [facility] 100 No Information Jul- 3 Cancemi Shanika. [address], [id number], [place]. tel:[phone] Referring Provider: Gi Knutson, [address], [address] . tel:[phone] [facility] , [address], [place], [place], [id number] , [place] tel:[phone] [facility] 100 Pain in left hand Oct-2 3 Cancemi Shanika. [address], [id number], [place]. tel:[phone] Referring Provider: Gi Knutson, [address], [address] . tel:[phone] [facility] , [address], [place], [place], [id number] , [place] tel:[phone] [facility] 100 Pain in left hand Sep-2 3 Cancemi Shanika. [address], [id number], [place]. tel:[phone] Referring Provider: Gi Knutson, [address] [place] [address], [address] . tel:[phone] [facility] , [address] [place], [id number] , [place] tel:[phone] [facility] Follow Up of L Hand (chief complaint) Laceration of flexor muscle, fascia and tendon of unspecified finger at forearm level, subsequent encounter Sep-2 7- 3 Haven Angelo. [address], [id number]. tel:[phone] Referring Provider: Gi Knutson, [address], [address] . tel:[phone] [facility] , [address] [place] [address] [place], [id number] , [place] tel:[phone] [facility] [address] Pain in left hand Sep-2 7- 3 Remi Daniels. [address] [place] [address], [id number], [place]. tel:[phone] Referring Provider: Gi Knutson, [address], [address] . tel:[phone] [facility] , [facility] [place], [id number] , [place] tel:[phone] [facility] [address] Pain in left hand Sep-2 0-202 3 Remi Daniels. [address] [place] [address], [id number], [place]. tel:[phone] Referring Provider: Gi Knutson, [address], [address] . tel:[phone] [facility] , [address] [place] [address] [place], [id number] , [place] tel:[phone] [facility] [address] Pain in left hand Sep-1 8- 3 Cancemi Shanika. [address], [id number], [place]. tel:[phone] Referring Provider: Gi Knutson, [address] [place] [address], [address] . tel:[phone], [id number] , [place] tel:[phone] [facility] Follow Up of L Hand (chief complaint) Laceration of flexor muscle, fascia and tendon of unspecified finger at forearm level, subsequent encounter 3 Haven Angelo. [address], [id number]. tel:[phone] Referring Provider: Gi Knutson, [address], [address] . tel:[phone], [id number] , [place] tel:[phone] [facility] [address] Pain in left hand 3 Cancemi Shanika. [address] [place] [address], [id number], [place]. tel:[phone] Referring Provider: Gi Knutson, [address], [address] . tel:[phone], [id number] , [place] tel:[phone] [facility] [address] Pain in left hand 3 Cancemi Shanika. [address] [place] [address], [id number], [place]. tel:[phone] Referring Provider: Gi Knutson, [address], [address] . tel:[phone], [id number] , [place] tel:[phone] [facility] [address] Pain in left hand Apr- 3 Trautschold Jolie. [address] [place] [address], [id number]. tel:[phone] Referring Provider: Gi Knutson, [address], [address] . tel:[phone] [facility] , [address] [place] [address], [id number] , [place] tel:[phone] [facility] 100 Pain in left hand 3 Geo Navarro. [address] [place], [id number], [place]. tel:[phone] Referring Provider: Gi Knutson, [address], [address] . tel:[phone] [facility] , [address] [place] [address], [id number] , [place] tel:[phone] [facility] Follow Up of L IF (chief complaint) Laceration of flexor muscle, fascia and tendon of unspecified finger at forearm level, subsequent encounter 3 Haven Angelo. [address], [id number]. tel:[phone] Referring Provider: Gi Knutson, [address], [address] . tel:[phone] [facility] , [address] [place] [address], [id number] , [place] tel:[phone] [facility] 100 Pain in left hand 3 Remi Frances. [address], [id number], [place]. tel:[phone] Referring Provider: Gi Knutson, [address], [address] . tel:[phone] [facility] , [address] [place] [address], [id number] , [place] tel:[phone] [facility] Stiffness of right hand, not elsewhere classifiedLacer ation of flexor muscle, fascia and tendon of unspecified finger at forearm level, subsequent encounter 3 Haven Angelo. [address], [id number]. tel:[phone] Referring Provider: Gi Knutson, [address] [address], [place], [address] . tel:[phone] EST PATNT OV DTL EXAM [facility] , [address] [place] [address], [id number] , [place] tel:[phone] [facility] left hand (chief complaint) Stiffness of right hand, not elsewhere classifiedLacer ation of flexor muscle, fascia and tendon of unspecified finger at forearm level, subsequent encounter 3 Haven Gi. [address], [id number]. tel:[phone] Referring Provider: Gi Knutson, [address], [address] . tel:[phone] [facility] , [address] [place] [address], [id number] , [place] tel:[phone] [facility] 100 Pain in left finger(s) 3 Cancemi Shanika. [address] [place] [address], [id number], [place]. tel:[phone] Referring Provider: Gi Knutson, [address], [address] . tel:[phone] [facility] , [address] [place] [address], [id number] , [place] tel:[phone] [facility] 100 Pain in left finger(s) 3 Iglesia Saldana. [address] [place] [address], [id number], [place]. tel:[phone] Referring Provider: Gi Knutson, [address], [address] . tel:[phone] [facility] , [address], [id number] , [place] tel:[phone] [facility] 100 Pain in left finger(s) 3 Kim Voss. [address], [id number], [place]. tel:[phone] Referring Provider: Gi Knutson, [address] [place] [address], [address] . tel:[phone] [facility] , [address] [place], [id number] , [place] tel:[phone] [facility] 100 Pain in left finger(s) Kristopher-0 3 Remi Alvarezndra. [address] [place] [address], [id number], [place]. tel:[phone] Referring Provider: Gi Knutson, [address] [place] [address], [address] . tel:[phone] [facility] , [address] [place], [id number] , [place] tel:[phone] [facility] 100 Pain in left finger(s) 0 3 Remi Alvarezndra. [address] [place] [address], [id number], [place]. tel:[phone] Referring Provider: Gi Knutson, [address] [place] [address], [address] . tel:[phone] [facility] , [facility] [place], [id number] , [place] tel:[phone] [facility] Follow Up of L IF (chief complaint) Laceration with foreign body of unspecified thumb with damage to nail, subsequent encounter 3 Haven Angelo. [address] [place] [address], [id number]. tel:[phone] Referring Provider: Gi Knutson, [address], [address] . tel:[phone], [id number] , tel:[phone] [facility] [address] Pain in left finger(s) Feb- 3 Ross Frances. [address], [id number], [place]. tel:[phone] Referring Provider: Gi Knutson, [address], [address] . tel:[phone] [facility] , [address] [place] [address], [id number] , [place] tel:[phone] [facility] [address] Pain in left finger(s) 3 Remi Frances. [address] [place] [address], [id number], [place]. tel:[phone] Referring Provider: Gi Knutson, [address], [address] . tel:[phone], [id number] , [place] tel:[phone] [facility] [address] Pain in left finger(s) 3 Remi Frances. [address] [place] [address], [id number], [place]. tel:[phone] Referring Provider: Gi Knutson, [address], [address] . tel:[phone], [id number] , [place] tel:[phone] [facility] [address] Pain in left finger(s) 3 Cancemi Shanika. [address], [id number], [place]. tel:[phone] Referring Provider: Gi Knutson, [address], [address] . tel:[phone] [facility] , [address] [place], [id number] , [place] tel:[phone] [facility] Follow Up of L IF (chief complaint) Laceration with foreign body of unspecified thumb with damage to nail, subsequent encounter 3 Haven Angelo. [address], [id number]. tel:[phone] Referring Provider: Gi Knutson, [address], [address] . tel:[phone] [facility] , [address] [place], [id number] , [place] tel:[phone] [facility] 100 Pain in left finger(s) 3 Remi Daniels. [address], [id number], [place]. tel:[phone] Referring Provider: Gi Knutson, [address], [address] . tel:[phone] [facility] , [address], [id number] , [place] tel:[phone] [facility] 100 Pain in left finger(s) 3 Remi Woodsra. [address], [id number], [place]. tel:[phone] Referring Provider: Gi Knutson, [address], [address] . tel:[phone] [facility] , [address] [place], [id number] , [place] tel:[phone] [facility] [address] Pain in left finger(s) January-0 3 Cancemi Shanika. [address], [id number], [place]. tel:[phone] Referring Provider: Gi Knutson, [address], [address] . tel:[phone] [facility] , [address] [place] [address], [id number] , [place] tel:[phone] [facility] [address] Pain in left finger(s) January-0 - 3 Cancemi Shanika. [address], [id number], [place]. tel:[phone] Referring Provider: Gi Knutson, [address], [address] . tel:[phone] [facility] , [address] [place] [address], [id number] , [place] tel:[phone] [facility] [address] Pain in left finger(s) Apr-2 3 Cancemi Shanika. [address], [id number], [place]. tel:[phone] Referring Provider: Gi Knutson, [address], [address] . tel:[phone] [facility] , [address] [place] [address], [id number] , [place] tel:[phone] [facility] [address] Pain in left finger(s) Dec-2 3 Trautschold Jolie. [address] [place] [address], [id number]. tel:[phone] Referring Provider: Gi Knutson, [address], [address] . tel:[phone] [place], [id number] , [place] tel:[phone] [facility] Follow Up of L IF (chief complaint) Laceration with foreign body of unspecified thumb with damage to nail, subsequent encounter Dec- 3 Haven Angelo. [address], [id number]. tel:[phone] [facility] , [address], [place], [place], [id number] , [place] tel:[phone] [facility] 100 Pain in left finger(s) Apr-2 3 Remi Daniels. [address], [id number], [place]. tel:[phone] Referring Provider: Gi Knutson, [address], [address] . tel:[phone] [facility] , [address] [place] [address], [id number] , [place] tel:[phone] [facility] 100 Pain in left finger(s) Apr- 3 Katelin Dave. [address] [place], [id number]. tel:[phone] Referring Provider: Gi Knutson, [address], [address] . tel:[phone] [facility] , [address] [place], [id number] , [place] tel:[phone] [facility] 100 Pain in left finger(s) Apr- 3 Delaneyvilma HartmanShanika. [address], [id number], [place]. tel:[phone] Referring Provider: Gi Knutson, [address], [address] . tel:[phone] [facility] , [address] [place], [id number] , [place] tel:[phone] [facility] 100 Pain in left finger(s) Apr-0 6-202 3 Trasandrachold Jolie. [address] [place], [place], [id number]. tel:[phone] Referring Provider: Gi Knutson, [address], [address] . tel:[phone] [facility] , [address] [place] [address], [id number] , [place] tel:[phone] [facility] [address] Pain in left finger(s) Apr-0 3-202 3 Trasandrachold Jolie. [address] [place], [place], [id number]. tel:[phone] Referring Provider: Gi Knutson, [address] [place] [address], [address] . tel:[phone] [facility] , [address] [place] [address], [id number] , [place] tel:[phone] [facility] 100 Pain in left finger(s) Mar-3 1- 3 Cancemi Shanika. [address] [place] [address], [id number], [place]. tel:[phone] Referring Provider: Gi Knutson, [address], [address] . tel:[phone] [facility] , [address] [place] [address], [id number] , [place] tel:[phone] [facility] Follow Up of L IF (chief complaint) Laceration with foreign body of unspecified thumb with damage to nail, subsequent encounter Mar-2 3 Haven Angelo. [address] [place] [address], [id number]. tel:[phone] Referring Provider: Gi Knutson, [address] [place] [address], [address] . tel:[phone] [facility] , [address] [place] [address], [id number] , [place] tel:[phone] [facility] [address] Pain in left finger(s) 3 Katelin Dave. [address] [place] [address], [id number]. tel:[phone] Referring Provider: Gi Knutson, [address] [place] [address], [address] . tel:[phone] [facility] , [address] [place], [place], [id number] , [place] tel:[phone] [facility] No Information 3 Haven Angelo. [address] [place] [address], [id number]. tel:[phone] Referring Provider: Gi Knutson, [address] [place] [address], [address] . tel:[phone] [facility] , [address] [place], [place], [id number] , [place] tel:[phone] [facility]3] Flexor tendon laceration of finger with open wound, initial encounter 3 Haven Angelo. [address] [place] [address], [id number]. tel:[phone] NEW PATNT OV MOD COMP [facility] , [address] [place], [place], [id number] , [place] tel:[phone] [facility] Lt Hand/Index Finger (chief complaint) Pain in left finger(s)Flexor tendon laceration of finger with open wound, initial encounterUnspec ified open wound of unspecified finger without damage to nail, initial encounter 3 Haven Angelo. [address] [place] [address], [id number]. tel:[phone] Referring Provider: Gi Knutson, [address] [place] [address], [address] . tel:[phone] Family History Family Member Type Diagnosis Age At Onset Problem Family history of Diabetes m ellitus Problem Family history of Cardiovasc ular disease Problem Family history of Arthritis Payers Payer name Insurance type Covered alliance party ID Jaki pozo(s) [employer] [id number] Social History Type Description Quantity Date Captured Comments Sex Female Smoking Status No Information Chief Complaint And Reason For Visit No Information Reason For Referral Reason For Referral No Information History Of Present Illness Encounter Date Complaint History Of Prese nt Illness Follow Up of L Hand Follow Up of L Hand Follow Up of L Hand Follow Up of L IF left hand Follow Up of L IF Follow Up of L IF Follow Up of L IF Follow Up of L IF Lt Hand/Index Finger Functional Status Date Functional Assessmen t No Information Instructions Date Instruction Additional Infor juju - Medication refills must be requested before 4pm Wednesday through Wednesday Related to Laceration of flexor muscle, fascia and tendon of unspecified finger at forearm level, subsequent encounter - Patient education available at [email or web address] on the Education tab Related to Laceration of flexor muscle, fascia and tendon of unspecified finger at forearm level, subsequent encounter Maximum medical impr ovement (MMI) on 08/06/2023 Return to full duty on 3 Return to full duty on 3 - Patient education available at [email or web address] on the Education tab Related to Laceration of flexor muscle, fascia and tendon of unspecified finger at forearm level, subsequent encounter - Medication refills must be requested before 4pm Wednesday through Wednesday Related to Laceration of flexor muscle, fascia and tendon of unspecified finger at forearm level, subsequent encounter - Medication refills must be requested before 4pm Wednesday through Wednesday Related to Laceration of flexor muscle, fascia and tendon of unspecified finger at forearm level, subsequent encounter - Patient education available at [email or web address] on the Education tab Related to Laceration of flexor muscle, fascia and tendon of unspecified finger at forearm level, subsequent encounter Return to work with restrictions on 05/05/2023 Restriction: Use of injured extremity- no Unable to work till: 1 Week Return to work with restrictions on 04/11/2023 Restriction: Use of injured extremity- no - Patient education available at [employer] on the Education tab Related to Laceration of flexor muscle, fascia and tendon of unspecified finger at forearm level, subsequent encounter - Medication refills must be requested before 4pm Wednesday through Wednesday Related to Laceration of flexor muscle, fascia and tendon of unspecified finger at forearm level, subsequent encounter Return to full duty on - Patient education available at [employer] on the Education tab Related to Laceration of flexor muscle, fascia and tendon of unspecified finger at forearm level, subsequent encounter - Medication refills must be requested before 4pm Wednesday through Wednesday Related to Laceration of flexor muscle, fascia and tendon of unspecified finger at forearm level, subsequent encounter Restriction: Use of injured extremity- no Return to work with restrictions on 02/08/2023 - Patient education available at [employer] on the Education tab Related to Laceration with foreign body of unspecified thumb with damage to nail, subsequent encounter - Medication refills must be requested before 4pm Wednesday through Wednesday Related to Laceration with foreign body of unspecified thumb with damage to nail, subsequent encounter - Medication refills must be requested before 4pm Wednesday through Wednesday Related to Laceration with foreign body of unspecified thumb with damage to nail, subsequent encounter - Patient education available at [employer] on the Education tab Related to Laceration with foreign body of unspecified thumb with damage to nail, subsequent encounter Return to work with restrictions on 01/18/2023 Restriction: Use of injured extremity- no Restriction: Use of injured extremity- no Return to work with restrictions on 12/28/2022 - Patient education available at [email or web address] on the Education tab Related to Laceration with foreign body of unspecified thumb with damage to nail, subsequent encounter - Medication refills must be requested before 4pm Wednesday through Wednesday Related to Laceration with foreign body of unspecified thumb with damage to nail, subsequent encounter - Medication refills must be requested before 4pm Wednesday through Wednesday Related to Laceration with foreign body of unspecified thumb with damage to nail, subsequent encounter - Patient education available at [email or web address] on the Education tab Related to Laceration with foreign body of unspecified thumb with damage to nail, subsequent encounter Return to work with restrictions on 12/02/2022 Restriction: Use of injured extremity- no Restriction: Use of injured extremity- no Return to work with restrictions on 11/18/2022 - Patient education available at [email or web address] on the Education tab Related to Flexor tendon laceration of finger with open wound, initial encounter - Medication refills must be requested before 4pm Wednesday through Wednesday Related to Flexor tendon laceration of finger with open wound, initial encounter Assessments Type Assessment Date No Information Patient Care Teams Name Effective Dates (start - stop) Status Members No Information
--- NOTE | 2025-03-17 12:30 | ECG_ITS ---
Test Date: 2025-03-17 12:42:22 Measurements Intervals [place] Rate: 74 P: 68 NV: 155 QRS: 52 QRSD: 83 T: 33 QT: 412 QTc: 459 Interpretive Statements SINUS RHYTHM LEFT ATRIAL ENLARGEMENT [-0.15mV P-WAVE IN V1/V2] ABNORMAL ECG No previous ECG available for comparison Electronically Signed On 03-17-2025 12:50:38 CDT by Stuart Casillas M.D.
[2025-03-17] MEDS: POTASSIUM BICARBONATE 25 MEQ TABEF 50 MEQ PO (12:35)
[2025-03-17] MEDS: KCL 20 MEQ/SW 100 ML 100 ML 50 MEQ IVPB (12:36)
[2025-03-17 12:41] LABS: Add Urine Microscopic? NO; Appearance Urine Clear (Clear); Glucose Urine UA Negative (Negative); Leukocyte Esterase Ur Negative LEU/UL (Negative); Nitrate Urine Negative (Negative); Specific Grav Ur 1.010 (1.010-1.020)
[2025-03-17 13:22] VITALS: BP 127/72; PULSE 78; RESP 18; O2SAT 99
[2025-03-17 14:20] VITALS: BP 153/76; PULSE 70; RESP 18; TEMP 36.4; O2SAT 97; BMI 28.5
--- NOTE | 2025-03-17 14:20 | ADMGEN ---
This patient, Henrietta Parra, was admitted to 2nd Floor Room 203-1. Patient/family oriented to hospital policies and general routines including ID bracelet, bed and alarms, visiting hours, pain management, procedures, bathroom and other care routines, personal items, smoking policy, room service/diet, and visiting hours. Information on how to activate the Rapid Response Team has been discussed. Patient/Family are encouraged to report perceived risks to care and to ask questions if they do not understand what they are told or what they should do.
[2025-03-17 14:45] LABS: Magnesium 1.4 mg/dL (1.6-2.3)
[2025-03-17] MEDS: KCL 40 MEQ/0.9% SOD CHL 1,000 ML 100 ML IV CONT (15:18)
[2025-03-17 16:30] VITALS: O2SAT 97
--- NOTE | 2025-03-17 18:22 | PC.NURSE ---
Litzy Ragland, PIE CUTTER/Hospitalist, notified that patient has had 3 loose stools. New order received for Stool of C Diff.
[2025-03-17 19:46] VITALS: PULSE 60
[2025-03-17] MEDS: METOCLOPRAMIDE HCL 5 MG TABLET PO (20:57)
[2025-03-18] VITALS (7 sets, daily range): BP systolic 156–177; BP diastolic 76–96; PULSE 60–111; RESP 16–20; TEMP 36–36.7; O2SAT 97–99
[2025-03-18] MEDS: LORazepam INJ (*CRX) 2 MG/ML VIAL 1 MG IV PUSH (02:37)
--- NOTE | 2025-03-18 02:47 | PC.NURSE ---
Pt exhibiting multiple attention seeking behaviors such as kinking the IV tubing, calling for assistance for emesis w/supplies present in room, and eating/drinking copious amounts of ice and water to induce vomiting. Pt had some nausea at the beginning of shift, but has progressively started to vomit after requesting ice and did not have an NPO diet order. Pt also stating she has extreme anxiety and is afraid of the dark and showing dependent behaviors. Pt also defecated in her underwear while vomiting. Bed linens were changed while pt went to the BR independently to clean herself. Soiled clothing was placed in a belongings bag and left in pt room. A pair of depends was brought to pt and more emesis bags. Pt stated Can I just keep puking in the trash can? Pt educated that the emesis bags are a preferred receptacle for reasons such as hygiene and measuring emesis output. Call light w/in reach; night light on for pt safety and her anxiety, side railsx2, and door left open to also help ease pt's anxiety.
[2025-03-18] MEDS: KCL 40 MEQ/0.9% SOD CHL 1,000 ML 100 ML IV CONT (04:51)
[2025-03-18 06:05] LABS: Hematocrit 32.8 % (35.0-49.0); Hemoglobin 10.8 g/dL (12.0-15.0); Immature Granulocyte Percent A 0.4 % (0.0-0.0); Lymphocytes Absolute Auto 1.99 K/mm3 (1.10-4.50); Mean Corpuscular HGB Conc 32.9 g/dL (32-36); Mean Corpuscular Hemoglobin 26.7 pg (27.0-31.0); Mean Corpuscular Volume 81.2 fL (78.0-102.0); Nucleated Red Blood Cells Absolute Auto 0.00 K/mm3 (0.00-0.00); Nucleated Red Blood Cells Perc 0.0 % (0-0.0); Platelet Count Result 261 K/mm3 (150-420); Red Blood Count 4.04 M/mm3 (4.20-5.40); White Blood Count 8.1 K/mm3 (4.8-10.8)
[2025-03-18 06:27] LABS: Alanine Aminotransferase 17 U/L (6-35); Albumin Level 3.9 g/dL (3.5-5.1); Alkaline Phosphatase 91 U/L (38-126); Anion Gap 6 mmol/L (4-12); Aspartate Amino Transferase 22 U/L (14-36); Bilirubin,Total 0.4 mg/dL (0.2-1.3); Blood Urea Nitrogen 4 mg/dL (7-17); Calcium 8.5 mg/dL (8.4-10.2); Carbon Dioxide 24 mmol/L (22-30); Chloride 103 mmol/L (98-107); Estimated CRCL calculation 94 ml/min; Estimated Glomerular Filt Rate > 60; Glucose 113 mg/dL (65-110); Magnesium 1.4 mg/dL (1.6-2.3); Osmolality Calculated 273 mOsm/kg (285-295); Potassium 3.2 mmol/L (3.4-5.0); Sodium 133 mmol/L (137-145); Total Protein 6.3 g/dL (6.3-8.2)
[2025-03-18] MEDS: METOCLOPRAMIDE HCL 5 MG TABLET PO ×3 (07:07→21:55)
--- NOTE | 2025-03-18 07:30 | P.HP_ITS ---
H&P: HPI History of Present Illness Date/Time: 03/18/25 07:30 Chief Complaint: nausea/vomiting/abdominal pain Narrative: This is a 49 year female patient with past medical history of depression, hyperlipidemia, anxiety, GERD and chronic marijuana use presented through the emergency room last evening with complaints having worsening of nausea/ vomiting/ abdominal pain with some occasional diarrhea for the past couple of days. Patient reports she had had previous workup at outside facility this past week and it was negative. She reports not she does use usual daily marijuana but has not been able to use in the past 4 days. She has been told previously that she may very well have cannabis hyperemesis. She states she follows with a GI specialist in [facility] and was supposed to see them last week but was too sick to make the trip so she did not go. She denies any fevers. She denies any hematemesis, melena appearing stool or hematochezia. She denies any known ill contacts. In the emergency room it was noted that the patient's potassium was low at 2.8. Her magnesium was 1.4. In addition her lactic acid was also 2.8. Patient has received p.o. and IV potassium. She was admitted to the hospital in the current setting of hypokalemia, cannabis hyperemesis, dehydration and marijuana use. This morning patient is examined at the bedside and she appears to be in no acute distress, however does appear ill. Patient states she had a tough night. Her potassium improved this morning to 3.2 and magnesium is stable at 1.4. Remainder of labs are unremarkable. Patient however states she feels very anxious and she feels generally unwell. We discussed the possibility of discharged home and she states that she does not feel like she can go today. We also discuss findings of CT scan that was performed in ER that were coincidental being a mild bilateral hydroureteronephrosis to the level of the bladder without stone or mass. This could represent an outlet obstruction or neurogenic bladder. Patient without any acute symptoms of infection/ outlet obstruction as she has been able to urinate without difficulty and feels as though she is emptying her bladder. We also discussed the coincidental finding of polyp versus fibroid in the endometrial canal and it is recommended that she follow-up with gynecological assistant. She will need to do this upon discharge from hospital. She complai nts this morning about her anxiety and states she has been started on Paxil within the past month and has not yet begun to feel its effect. She does not take any short-acting medications for anxiety at home. Discussed with her that we will try hydroxyzine today. Review of Systems Review of Systems: All systems reviewed & are unremarkable except as noted in HPI and below [facility] Past Medical History Medical History (Updated 03/18/25 @ 07:44 by LISETTE Nelson) Dyslipidemia Abnormal CT scan, pelvis Anxiety and depression Marijuana use Depression Social History Social History Smoking status: Never smoker Alcohol intake: never Substance use: current Substance use type: marijuana Last use: 03/14/25 Do You Feel Safe in your Home?: Yes Lack of Transportation: No Lack of Food: Never True Current Housing: I Have Housing Concerned About Future Housing: No Difficulty Paying Gas/Electric Bills: No Difficulty Paying for Meds: No Currently Unemployed: No Education: High School Diploma/GED Difficulty w/ Childcare or Family Care: No Spiritual care concerns: No Meds Home Medications and Allergies Home Medications ?Medication ?Instructions ?Recorded ?Confirmed ?Type atorvastatin 40 mg tablet (Lipitor) 40 mg PO DAILY 03/17/25 03/17/25 History gabapentin 300 mg capsule 300 mg PO TID 03/17/25 03/17/25 History metoclopramide HCl 5 mg tablet 5 mg PO QID 03/17/25 03/17/25 History (Reglan) omeprazole 40 mg capsule,delayed 40 mg PO BID 03/17/25 03/17/25 History release ondansetron HCl 4 mg tablet 4 mg PO Q8H 03/17/25 03/17/25 History oxcarbazepine 300 mg tablet 300 mg PO BID 03/17/25 03/17/25 History paroxetine HCl 20 mg tablet 20 mg PO QAM 03/17/25 03/17/25 History promethazine 25 mg tablet 25 mg PO Q6H PRN nausea and 03/17/25 03/17/25 History vomiting tizanidine 2 mg tablet 2 mg PO Q8H 03/17/25 03/17/25 History trazodone 150 mg tablet 150 mg PO HS PRN sleep 03/17/25 03/17/25 History Allergies Allergy/AdvReac Type Severity Reaction Status Date / Time mushroom Allergy Unknown Verified 03/17/25 11:40 tirzepatide (From Zeound) Allergy Unknown Verified 03/17/25 11:40 flu Allergy Unknown Uncoded 03/17/25 11:40 Vital Signs Vital Signs - 24 hr 03/17/25 11:27 03/17/25 13:22 03/17/25 14:20 Temperature 97.6 F Pulse Rate 84 78 Respiratory Rate 18 18 Blood Pressure 162/100 H 127/72 Pulse Oximetry 97 99 97 Oxygen Delivery Room Air Room Air Room Air 03/17/25 14:20 03/17/25 16:30 03/17/25 19:46 Temperature 97.6 F Pulse Rate 70 60 Respiratory Rate 18 Blood Pressure 153/76 H Pulse Oximetry 97 97 Oxygen Delivery Room Air Room Air 03/18/25 00:00 03/18/25 00:00 03/18/25 04:00 Temperature 97.8 F Pulse Rate 78 100 87 Respiratory Rate 20 Blood Pressure 176/96 H Pulse Oximetry 97 Oxygen Delivery Room Air Exam Const: General: comfortable and no acute distress Other: Appears acutely ill HENMT: Face/Nose/Sinus: Normal nares present Mouth: Yes dry mucous membranes Other: no lesions Eyes: General: appearance normal, both eyes and all related structures Neck: Neck: supple and no JVD Lymphatic: lymphadenopathy not noted Chest: Other: nontender to palpation Resp: Effort & Inspection: normal respiratory effort Auscultation: clear to auscultation bilaterally Cardio: Rate: regular rate Rhythm: regular rhythm Heart sounds: no gallops, no murmurs and no rubs GI: Inspection: non-distended GI Palp: Yes Soft to palpation and Yes Tenderness to palpation present (GI) ( diffusely) Auscultation: normal bowel sounds Skin: General skin exam: normal color, no rashes or lesions noted and no erythema Lesions: no lesions noted Rashes: no rashes noted Wounds: no wounds Neuro: Speech: normal speech Motor exam (neuro): 5/5 motor strength present throughout, Normal motor muscle tone present throughout and strength normal Extrem: General: normal to inspection, no edema and no pedal edema Other: freely and equally moves all extremities well without deficit. Psych: Mental Status: mental status grossly normal Affect: Sad affect present ( Flat affect) H&P: Results Labs Labs: Short CBC 03/17/25 03/18/25 Range/Units 11:50 05:56 WBC 9.4 8.1 (4.8-10.8) K/mm3 Hgb 11.3 L 10.8 L (12.0-15.0) g/dL Hct 34.9 L 32.8 L (35.0-49.0) % Plt Count 273 261 (150-420) K/mm3 BMP 03/17/25 03/18/25 11:50 05:56 Sodium 132 L 133 L Potassium 2.8 L* 3.2 L Chloride 103 103 Carbon Dioxide 18 L 24 BUN 9 4 L D Creatinine 0.66 L 0.67 L Glucose 147 H 113 H Calcium 8.8 8.5 Liver Function 03/17/25 03/18/25 Range/Units 11:50 05:56 Total Bilirubin 0.6 0.4 (0.2-1.3) mg/dL AST 33 22 (14-36) U/L ALT 30 17 (6-35) U/L Alkaline Phosphatase 85 91 (38-126) U/L Albumin 3.9 3.9 (3.5-5.1) g/dL Urine 03/17/25 Range/Units 12:23 Urine Color Light yellow (Yellow) Urine Appearance Clear (Clear) Urine pH 7.0 (5.0-8.0) Ur Specific [place] 1.010 (1.010-1.020) Urine Protein Negative (Negative) Urine Glucose (UA) Negative (Negative) Assessment and Plan Assessment and plan (1) Cannabinoid hyperemesis syndrome: Code(s): R11.2 - Nausea with vomiting, unspecified; F12.90 - Cannabis use, unspecified, uncomplicated Status: Acute Assessment and Plan: * reports daily marijuana use at baseline, has not used in 4 days * continue antiemetics * encouraged cessation of marijuana use. * Advised follow-up with GI specialist that has already been established. * Attempt to increase p.o. intake today. (2) Dehydration: Code(s): E86.0 - Dehydration Status: Acute Assessment and Plan: * Interval improvement with potassium and per from 2.83.2 this morning. Lactic acid improved from 2.8 down to 1.8. Magnesium is stable * change IV fluids to normal saline at 75 mL/hour. * Attempt to increase p.o. intake today. (3) Acute hypokalemia: Code(s): E87.6 - Hypokalemia Status: Acute Assessment and Plan: * Improved from critically low at 2.8 to 3.2. * Change IV fluids from normal saline with potassium to normal saline at 75 mL/hour. * Potassium 40 mEq p.o. b.i.d. ordered. * Continue to trend and monitor potassium levels with labs. (4) Marijuana use: Code(s): F12.90 - Cannabis use, unspecified, uncomplicated Status: Chronic Assessment and Plan: * see 1. * Suspect the causation for patient's symptoms as CT did not show any acute abnormalities. (5) Anxiety and depression: Code(s): F41.9 - Anxiety disorder, unspecified; F32.A - Depression, unspecified Status: Chronic Assessment and Plan: * Continue Paxil that pt has been prescribed. * Start Hydroxyzine 25 mg Q6 hrs prn for anxiety. (6) Abnormal CT scan, pelvis: Code(s): R93.5 - Abnormal findings on diagnostic imaging of other abdominal regions, including retroperitoneum Status: Acute Assessment and Plan: * CT scan with findings of fibroid versus polyp in the endometrial canal. Patient will need to follow-up with outpatient ultrasound and be referred to gynecology upon discharge. (7) Dyslipidemia: Code(s): E78.5 - Hyperlipidemia, unspecified Status: Chronic Assessment and Plan: * Continue statin therapy. Plan Increased p.o. intake today and monitor for response. Decrease IV fluids does not feel well enough to go home today, suspect patient will be ready for discharge tomorrow. Quality VTE Prophylaxis VTE prophylaxis: pharmacologic ordered
[2025-03-18] MEDS: ONDANSETRON INJ 4 MG/2 ML VIAL IV PUSH ×3 (08:16→21:56)
[2025-03-18] MEDS: KCL 20 MEQ/SW 100 ML 100 ML 25 MEQ IVPB (09:08)
[2025-03-18 11:57] LABS: Toxigenic C. Diff POSITIVE (NEGATIVE)
--- NOTE | 2025-03-18 12:00 | PC.NURSE ---
Patient notified of C-Diff positive stool test. Verbal teaching done about C-Diff and hand hygiene, given to patient and . Both parties state understanding. Patient given printed information about C-diff as well. JORJE Isbell notified. Waiting on new orders.
[2025-03-18] MEDS: FIDAXOMICIN 200 MG TABLET PO ×2 (12:43→21:55)
[2025-03-18] MEDS: KCL 20MEQ/0.9% SOD CHL 1,000 ML 100 ML IV CONT (15:30)
[2025-03-19] VITALS: BP 172/78; PULSE 68; PULSE 69; RESP 19; TEMP 36.6; O2SAT 98
[2025-03-19] MEDS: KCL 20MEQ/0.9% SOD CHL 1,000 ML 100 ML IV CONT (02:09)
[2025-03-19 04:00] VITALS: PULSE 80
[2025-03-19 05:39] LABS: Hematocrit 35.5 % (35.0-49.0); Hemoglobin 11.7 g/dL (12.0-15.0); Immature Granulocyte Percent A 0.4 % (0.0-0.0); Lymphocytes Absolute Auto 2.81 K/mm3 (1.10-4.50); Mean Corpuscular HGB Conc 33.0 g/dL (32-36); Mean Corpuscular Hemoglobin 27.1 pg (27.0-31.0); Mean Corpuscular Volume 82.4 fL (78.0-102.0); Nucleated Red Blood Cells Absolute Auto 0.00 K/mm3 (0.00-0.00); Nucleated Red Blood Cells Perc 0.0 % (0-0.0); Platelet Count Result 293 K/mm3 (150-420); Red Blood Count 4.31 M/mm3 (4.20-5.40); White Blood Count 7.9 K/mm3 (4.8-10.8)
[2025-03-19 05:47] LABS: Alanine Aminotransferase 20 U/L (6-35); Albumin Level 4.0 g/dL (3.5-5.1); Alkaline Phosphatase 89 U/L (38-126); Anion Gap 4 mmol/L (4-12); Aspartate Amino Transferase 24 U/L (14-36); Bilirubin,Total 0.5 mg/dL (0.2-1.3); Calcium 8.9 mg/dL (8.4-10.2); Carbon Dioxide 26 mmol/L (22-30); Chloride 107 mmol/L (98-107); Estimated CRCL calculation 84 ml/min; Estimated Glomerular Filt Rate > 60; Glucose 100 mg/dL (65-110); Magnesium 1.6 mg/dL (1.6-2.3); Potassium 3.5 mmol/L (3.4-5.0); Sodium 137 mmol/L (137-145); Total Protein 6.4 g/dL (6.3-8.2)
[2025-03-19 05:49] LABS: Blood Urea Nitrogen < 2 mg/dL (7-17); Osmolality Calculated 280 mOsm/kg (285-295)
[2025-03-19] MEDS: METOCLOPRAMIDE HCL 5 MG TABLET PO ×2 (06:32→11:36)
[2025-03-19 08:00] VITALS: BP 154/76; PULSE 74; RESP 18; TEMP 36.7; O2SAT 97
[2025-03-19] MEDS: ENOXAPARIN 40 MG/0.4 ML SYRINGE SUB-Q (08:58)
[2025-03-19] MEDS: GABAPENTIN 300 MG CAPSULE PO (08:59)
[2025-03-19] MEDS: FIDAXOMICIN 200 MG TABLET PO (08:59)
--- NOTE | 2025-03-19 09:40 | P.DS_ITS ---
DS: Admitting Diagnosis Discharge Date 03/19/2025 Admitting Diagnosis Nausea vomiting diarrhea/ dehydration/ hypokalemia DS: Discharge Diagnosis Discharge Diagnosis (1) Cannabinoid hyperemesis syndrome: Code(s): R11.2 - Nausea with vomiting, unspecified; F12.90 - Cannabis use, unspecified, uncomplicated Status: Acute (2) Dehydration: Code(s): E86.0 - Dehydration Status: Acute (3) Acute hypokalemia: Code(s): E87.6 - Hypokalemia Status: Acute (4) Marijuana use: Code(s): F12.90 - Cannabis use, unspecified, uncomplicated Status: Chronic Assessment and Plan: * see 1. * Suspect the causation for patient's symptoms as CT did not show any acute abnormalities. (5) Anxiety and depression: Code(s): F41.9 - Anxiety disorder, unspecified; F32.A - Depression, unspecified Status: Chronic Assessment and Plan: * Continue Paxil that pt has been prescribed. * Start Hydroxyzine 25 mg Q6 hrs prn for anxiety. (6) Abnormal CT scan, pelvis: Code(s): R93.5 - Abnormal findings on diagnostic imaging of other abdominal regions, including retroperitoneum Status: Acute Assessment and Plan: * CT scan with findings of fibroid versus polyp in the endometrial canal. Patient will need to follow-up with outpatient ultrasound and be referred to gynecology upon discharge. (7) Dyslipidemia: Code(s): E78.5 - Hyperlipidemia, unspecified Status: Chronic Assessment and Plan: * Continue statin therapy. (8) C. difficile diarrhea: Code(s): A04.72 - Enterocolitis due to Clostridium difficile, not specified as recurrent Status: Acute Plan DS: Summary Hospital Course Reason for hospitalization: N/ V/ D/ dehydration/ cannabinoid hyperemesis/ C diff Hospital Course: Admission: This is a 49 year female patient with past medical history of depression, hyperlipidemia, anxiety, GERD and chronic marijuana use presented through the emergency room last evening with complaints having worsening of nausea/ vomiting/ abdominal pain with some occasional diarrhea for the past couple of days. Patient reports she had had previous workup at outside facility this past week and it was negative. She reports not she does use usual daily marijuana but has not been able to use in the past 4 days. She has been told previously that she may very well have cannabis hyperemesis. She states she follows with a GI specialist in [facility] and was supposed to see them last week but was too sick to make the trip so she did not go. She denies any fevers. She denies any hematemesis, melena appearing stool or hematochezia. She denies any known ill contacts. In the emergency room it was noted that the patient's potassium was low at 2.8. Her magnesium was 1.4. In addition her lactic acid was also 2.8. Patient has received p.o. and IV potassium. She was admitted to the hospital in the current setting of hypokalemia, cannabis hyperemesis, dehydration and marijuana use. Hospital Course: Patient was admitted to the medical unit and treated for hyperemesis, hypokalemia, dehydration also found to be C diff positive during her admission stay had reported multiple episodes of diarrhea and initially started on Dificid. patient was treated with IV fluids, antiemetics and potassium replacement as well as Haldol for hyperemesis. patient with overall improvement of symptoms and electrolytes replaced. Patient of day of discharge was able to tolerate oral intake without any nausea or vomiting and diarrhea had improved with initiation of the Dificid. Patient was seen and assessed at time of discharge in no acute distress no new complaints overall improvement to symptoms she was discharged home on oral vancomycin due to cost instead of Dific id and potassium replacement however did recommend patient discontinue the potassium replacements once diarrhea has completely subsided. patient was also educated on hygiene and to not share bathroom was with other individuals until antibiotic course was completed I also encouraged immediate marijuana cessation to avoid further episodes of hyperemesis. Status at Discharge Functional status at discharge: independent ambulation Time Spent with Patient Time attestation: Total time spent providing and/or coordinating discharge services: Time spent: Greater than 30 minutes Exam Const: General: comfortable and no acute distress Other: Appears acutely ill HENMT: Face/Nose/Sinus: Normal nares present Mouth: Yes dry mucous membranes Other: no lesions Eyes: General: appearance normal, both eyes and all related structures Neck: Neck: supple and no JVD Lymphatic: lymphadenopathy not noted Chest: Other: nontender to palpation Resp: Effort & Inspection: normal respiratory effort Auscultation: clear to auscultation bilaterally Cardio: Rate: regular rate Rhythm: regular rhythm Heart sounds: no gallops, no murmurs and no rubs GI: Inspection: non-distended GI Palp: Yes Soft to palpation Auscultation: normal bowel sounds Skin: General skin exam: normal color, no rashes or lesions noted, no erythema, No lesion and No rashes Lesions: no lesions noted Rashes: no rashes noted Wounds: no wounds Neuro: Speech: normal speech Motor exam (neuro): 5/5 motor strength present throughout, Normal motor muscle tone present throughout and strength normal Extrem: General: normal to inspection, no edema and no pedal edema Other: freely and equally moves all extremities well without deficit. Psych: Mental Status: mental status grossly normal Affect: Sad affect present ( Flat affect) DS: Data Data Completed and Pending Labs on day of discharge: Labs from last 24 hours 03/19/25 03/18/25 05:24 11:06 WBC 7.9 RBC 4.31 Hgb 11.7 L Hct 35.5 MCV 82.4 MCH 27.1 MCHC 33.0 RDW 14.9 H Plt Count 293 MPV 11.1 Immature Gran % (Auto) 0.4 H Neut % (Auto) 50.3 Lymph % (Auto) 35.4 [place] % (Auto) 11.8 H Eos % (Auto) 1.6 Baso % (Auto) 0.5 Lymph # (Auto) 2.81 [place] # (Auto) 0.94 H Eos # (Auto) 0.13 Baso # (Auto) 0.04 Abs Immat Gran (auto) 0.03 H Absolute Neuts (auto) 3.99 Absolute Nucleated RBC 0.00 Nucleated RBC % 0.0 Sodium 137 Potassium 3.5 Chloride 107 Carbon Dioxide 26 Anion Gap 4 BUN < 2 L Creatinine 0.76 Estim Creat Clear Calc 84 Estimated GFR > 60 Glucose 100 Calculated Osmolality 280 L Calcium 8.9 Magnesium 1.6 Total Bilirubin 0.5 AST 24 ALT 20 Alkaline Phosphatase 89 Total Protein 6.4 Albumin 4.0 C. difficile (PCR) Positive A* Discharge Plan Discharge Attending physician on discharge: Pierre Chapa Consulting providers: Stuart Casillas; Jazmín Jaime; Bello Ramires Discharging Clinician: Shona Ragland Anticipated Discharge Date/Time: 03/19/25 09:31 Patient Disposition: Home Activity: may shower and as tolerated Diet: regular Discharge Instructions: 1). C-diff * I have prescribed oral Vancomycin please complete as indicated even if feeling better * Stay hydrated * Do not use Imodium for diarrhea allow it to run its course * I have also prescribed oral potassium supplements take as indicated may stop once diarrhea has stopped * Practice good hygiene with washing hands with soap and water and disinfecting toilets used 2). Cannabinoid hyperemesis (Nausea/vomiting from marijuana use) * recommend immediate cessation from use How can you care for yourself at home? ? Keep track of any new symptoms or changes in your symptoms. ? Rest until you feel better. ? Be safe with medicines. Take your medicines exactly as prescribed. Call your doctor if you think you are having a problem with your medicine. ? Do not drive after taking a prescription pain medicine. ? Ensure to follow-up with primary care physician as indicated and provide updated medication list provided to you at discharge. When should you call for help? Call 911 anytime you think you may need emergency care. For example, call if: ? You passed out (lost consciousness). Call your doctor now or seek immediate medical care if: ? You have new symptoms like fever, difficulty breathing, Chest pain, vomiting, or rash. ? You have new or different pain. ? You are confused and are having trouble thinking clearly. ? Your symptoms are getting worse. Watch closely for changes in your health, and be sure to contact your doctor if: ? You do not get better as expected. Patient Instructions: Antibiotic Form, Vancomycin (By mouth), Dehydration (DC), Hypokalemia (DC), C. Diff (Clostridioides Difficile) Infection (DC), C. Diff (Clostridioides Difficile) Infection (GEN) Patient Language: Wolof Stand Alone Forms: General Discharge Information Follow-up/Referrals: Aamir,Bisi Bob [Other] - 2 weeks Discharge Medications: New vancomycin 125 mg capsule 125 mg PO QID Qty: 40 0RF potassium chloride [K-Tab] 20 mEq tablet extended release 40 meq PO DAILY Qty: 20 0RF Continued metoclopramide HCl [Reglan] 5 mg tablet 5 mg PO QID promethazine 25 mg tablet 25 mg PO Q6H PRN (Reason: nausea and vomiting) tizanidine 2 mg tablet 2 mg PO Q8H trazodone 150 mg tablet 150 mg PO HS PRN (Reason: sleep) oxcarbazepine 300 mg tablet 300 mg PO BID paroxetine HCl 20 mg tablet 20 mg PO QAM omeprazole 40 mg capsule,delayed release(DR/EC) 40 mg PO BID atorvastatin [Lipitor] 40 mg tablet 40 mg PO DAILY gabapentin 300 mg capsule 300 mg PO TID ondansetron HCl 4 mg tablet 4 mg PO Q8H Qty: 30 0RF Date of admission: 03/17/25 13:34 Primary Care Provider: Aamir,Bisi Bob Admitting Provider: Pierre Chapa Attending physician on admission: Shona Ragland Condition: Stable Quality VTE Prophylaxis VTE prophylaxis: pharmacologic ordered -Patient's previous records reviewed on admission -ER notes reviewed in detail on admission -discussed all findings and current treatment plan with patient/Family/POA -Consultations reviewed for recommendations -Patient's disposition for safe discharge discussed with insurance case manager Dictation performed by [employer] direct speech recognition software, therefore neurophysiological technician variants and typographical errors may occur. Hospitalist MIPS Heart Failure (Exclusion) Patient has history of Heart Transplant or Left Ventricular Assistive Device?: No IF YES, STOP HERE Heart Failure (Qualifier) Patient has current or prior documentation of LVEF less than or equal to 40%, or mod/servere depressed LVSF?: No IF NO, STOP HERE
[2025-03-19 12:00] VITALS: PULSE 87
--- NOTE | 2025-03-19 12:31 | PC.NURSE ---
Discharge instructions reviewed with patient. Reinforced isolation precautions regarding C-Diff. Patient verbalizes understanding. Patient taken off floor per wheelchair
--- NOTE | 2025-03-26 13:52 | PC.NURSE ---
Attempt to do d/c callback x1, no answer, no voicemail.
== END 2025-03-19 12:25 | disposition home or self-care (01) ==
LOC: CHSED 13:34 → CHS2ND 13:38
PROVIDERS: Admitting Provider Internal Medicine; Emergency Provider Emergency Medicine; Visit Provider Nurse Practitioner Family
DX: A04.72 Enterocolitis due to Clostridium difficile, not specified as recurrent (principal); R11.2 Nausea with vomiting, unspecified; F12.90 Cannabis use, unspecified, uncomplicated; E86.0 Dehydration; E87.6 Hypokalemia; F32.A Depression, unspecified; F41.9 Anxiety disorder, unspecified; R93.5 Abnormal findings on diagnostic imaging of other abdominal regions, including retroperitoneum; N13.30 Unspecified hydronephrosis; E78.5 Hyperlipidemia, unspecified; K21.9 Gastro-esophageal reflux disease without esophagitis; Z79.899 Other long term (current) drug therapy
CPT/HCPCS: 36415; 74177; 80053; 81003; 83605; 83690; 83735; 85025; 87493; 93005; 96361; 96365; 96366; 96372; 96375; 96376; 99285; A9270; G0378; J1650; J1885; J2060; J2405; J3480; J7030; Q9967

== ENCOUNTER 2025-05-22 08:49 | Emergency (ER) | payer MEDICAID, SELFPAY ==
--- OUTSIDE RECORDS SUMMARY | 2025-03-04 19:00 | XMS_ITS | Continuity of Care Document ---
Author Organization [facility] Address [address] [place] [id number] Phone Care Team Providers Care Retail Property Manager Name Role Phone Noble ROPRE, FACC, Elsy Unavailable Unavailab le Procedures Procedure Date ELECTROCARDIOGRAM REPORT Advance Directives Directive Yes / No Effective Date File Name No Information Encounters Encounter Description Practice Location Reason(s) For Visit Diagnoses Date Provider Providers Copied on Encounter [facility], [address] [place] [address], [id number], tel:[phone] [facility] OP No Information Noble Chin. [address] [place] [address], [id number], . tel:[phone] Referring Provider: Elsy Dickey, [address] [place] [address], [id number]. tel:[phone] Family History Family Member Type Diagnosis Age At Onset No Information Payers Payer name Insurance type Covered democrat ID Authoriza tion(s) [facility] [id number] Social History Type Description Quantity Date Captured Comments Sex Female Smoking Status No Information Chief Complaint And Reason For Visit No Information Reason For Referral Reason For Referral No Information History Of Present Illness Encounter Date Complaint History Of Prese nt Illness No Information Functional Status Date Functional Assessmen t No Information Instructions Date Instruction Additional Infor mation No Information Assessments Type Assessment Date No Information Patient Care Teams Name Effective Dates (start - stop) Status Members No Information
--- NOTE | ~2025-05-22 | CT_ITS ---
EXAMINATION: CT abdomen pelvis w con DATE: 05/22/2025 09:54 INDICATION: Epigastric abdominal pain. Nausea, vomiting, and diarrhea. TECHNIQUE: Computed tomography (CT) of the abdomen and pelvis was performed with 100 mL Omnipaque 350 intravenous contrast. Automated exposure control and iterative reconstruction technique were employed. The dose-length product was 560.54 mGy-cm. COMPARISON: CT abdomen and pelvis 03/17/25 FINDINGS: The visualized portions of lung bases demonstrate emphysema and mild atelectasis. No pleural effusion. The heart size is normal. There is a small pericardial effusion. The liver and spleen are normal. Changes of cholecystectomy. The pancreas, adrenal glands, and kidneys are normal. There is a small fibroid versus endometrial polyp in the uterus. There are no dilated loops of bowel. The appendix is normal. There are no pathologically enlarged lymph nodes. There is no free intraperitoneal fluid. There is a left inguinal hernia containing fat. There is severe lower lumbar spondylosis. There is mild chronic height loss of multiple thoracic vertebral bodies. IMPRESSION: 1. Small pericardial effusion. 2. Left inguinal hernia containing fat. Reviewed, dictated and finalized at location E.
[2025-05-22 08:58] VITALS: BP 101/58; PULSE 98; RESP 24; TEMP 36.6; O2SAT 99
[2025-05-22 09:04] VITALS: BP 101/58; PULSE 92; RESP 22; TEMP 36.6; O2SAT 99
[2025-05-22 09:13] LABS: Hematocrit 40.1 % (37.0-47.0); Hemoglobin 13.6 g/dL (12.0-15.0); Immature Granulocyte Percent A 0.5 % (0-0.5); Lymphocytes Absolute Auto 1.82 K/mm3 (0.9-3.2); Mean Corpuscular HGB Conc 33.9 g/dl (32-36); Mean Corpuscular Hemoglobin 27.8 pg (26-34); Mean Corpuscular Volume 82.0 fl (80-100); Nucleated Red Blood Cells Absolute Auto 0.000 K/mm3 (0.0-0.012); Nucleated Red Blood Cells Perc 0.0 % (0.0-0.2); Platelet Count Result 365 k/mm3 (150-375); Red Blood Count 4.89 M/mm3 (4.2-5.4); White Blood Count 17.8 K/mm3 (4.5-10.0)
[2025-05-22 09:28] LABS: BEDSIDEPREGUCG Negative (Negative)
[2025-05-22 09:31] LABS: Alanine Aminotransferase 36 U/L (6-35); Albumin Level 5.1 g/dL (3.5-5.1); Alkaline Phosphatase 127 U/L (38-126); Anion Gap 17 mmol/L (4-12); Aspartate Amino Transferase 46 U/L (14-36); Bilirubin,Total 0.5 mg/dL (0.2-1.3); Blood Urea Nitrogen 20 mg/dL (7-17); Calcium 10.4 mg/dL (8.4-10.2); Carbon Dioxide 26 mmol/L (22-30); Chloride 94 mmol/L (98-107); Estimated CRCL calculation 55 ml/min; Estimated Glomerular Filt Rate 51; Glucose 123 mg/dL (65-110); Lipase 103 U/L (23-300); Potassium 3.2 mmol/L (3.4-5.0); Sodium 137 mmol/L (137-145); Total Protein 8.8 g/dL (6.3-8.2)
--- NOTE | 2025-05-22 09:36 | ED.NAVMDI ---
HPI - Nausea/Vomiting/Diarrhea General Chief complaint: Nausea/Vomiting/Diarrhea Stated complaint: n/v/d Time Seen by Provider: 05/22/25 09:02 Source: patient and old records reviewed Mode of arrival: ambulatory Limitations: no limitations History of Present Illness HPI Narrative: Patient is a 49 y/o female who presents to the ED with c/o N/V/D. Patient reports she began having nausea and vomiting around 9:30 a.m. yesterday. Has been unable to keep down food or drink since. Reports diarrhea, upper abdominal pain. Reports she had an endoscopy last with her GI specialist in [place], [place] d/t hx of similar episodes of vomiting. She is currently visiting in this area. She is a marijuana user and reports her episodes have sometimes been related to her marijuana use in the past. Reports chills, denies known fever. Related Data Home Medications ?Medication ?Instructions ?Recorded ?Confirmed ?Last Taken ?Type atorvastatin 40 mg tablet (Lipitor) 40 mg PO DAILY 03/17/25 03/17/25 Unknown History gabapentin 300 mg capsule 300 mg PO TID 03/17/25 03/17/25 Unknown History metoclopramide HCl 5 mg tablet 5 mg PO QID 03/17/25 03/17/25 Unknown History (Reglan) omeprazole 40 mg capsule,delayed 40 mg PO BID 03/17/25 03/17/25 Unknown History release oxcarbazepine 300 mg tablet 300 mg PO BID 03/17/25 03/17/25 Unknown History paroxetine HCl 20 mg tablet 20 mg PO QAM 03/17/25 03/17/25 Unknown History promethazine 25 mg tablet 25 mg PO Q6H PRN nausea and 03/17/25 03/17/25 Unknown History vomiting tizanidine 2 mg tablet 2 mg PO Q8H 03/17/25 03/17/25 Unknown History trazodone 150 mg tablet 150 mg PO HS PRN sleep 03/17/25 03/17/25 Unknown History Allergies Allergy/AdvReac Type Severity Reaction Status Date / Time mushroom Allergy Unknown Verified 03/17/25 11:40 tirzepatide (From Zepbound) Allergy Unknown Verified 03/17/25 11:40 flu Allergy Unknown Uncoded 03/17/25 11:40 Review of Systems Review of Systems: All systems reviewed & are unremarkable except as noted in HPI. All systems reviewed & are unremarkable except as noted in HPI and below PMFSH Past Medical History Medical History Dyslipidemia Abnormal CT scan, pelvis Anxiety and depression Marijuana use Depression Social History Social History Smoking status: Never smoker Alcohol intake: never Substance use: current Substance use type: marijuana Last use: 03/14/25 Do You Feel Safe in your Home?: Yes Lack of Transportation: No Lack of Food: Never True Current Housing: I Have Housing Concerned About Future Housing: No Difficulty Paying Gas/Electric Bills: No Difficulty Paying for Meds: No Currently Unemployed: No Education: High School Diploma/GED Difficulty w/ Childcare or Family Care: No Spiritual care concerns: No Exam Narrative: GENERAL: Mildly ill/uncomfortable appearing, well-nourished, non-toxic, in no acute distress. HEAD: Normocephalic, atraumatic. RESPIRATORY: Airway patent, respirations nonlabored. Clear to auscultation bilaterally, no rales, rhonchi, wheezing. CARDIOVASCULAR: Regular rate and rhythm without murmurs, rubs, or gallops. ABDOMINAL: Soft, tenderness to palpation epigastric/left upper quadrant, nondistended. Normoactive BS. MUSCULOSKELETAL: Moves all extremities. No gross deformities. SKIN: Warm, dry, normal color. NEURO: A&O X3. Speech clear. Cranial nerves II-XII grossly intact. Steady gait. No ataxic movements. PSYCHIATRIC: Appropriate mood and affect. Normal interaction. Course Vital Signs Vital signs: Vital Signs Temperature 97.8 F 05/22/25 08:58 Pulse Rate 98 05/22/25 08:58 Respiratory Rate 24 H 05/22/25 08:58 Blood Pressure 101/58 L 05/22/25 08:58 Pulse Oximetry 99 05/22/25 08:58 Temperature 97.8 F 05/22/25 09:04 Pulse Rate 76 05/22/25 10:15 Respiratory Rate 15 05/22/25 10:15 Blood Pressure 130/92 H 05/22/25 10:15 Pulse Oximetry 96 05/22/25 10:15 MDM - Nausea/Vomiting/Diarrhea MDM Narrative Medical decision making narrative: Patient presented to ED with nausea, vomiting, diarrhea, history of similar episodes. History of marijuana use. Sees GI specialist in [place], had recent egd which was normal. Vital signs are stable upon arrival. Patient mildly uncomfortable appearing. Fluids initiated. Nausea medicine given. Cbc with blood cell count of 17.8. Neutrophil predominance. No bandemia. CMP with evidence of dehydration. Potassium 3.2. Will replace. Mag low at 1.3. IV replacement given. Anion gap of 17. Creatinine slightly elevated 1.14. Fluids are ongoing. Mild transaminitis noted. Normal lipase. UA with trace ketones, no signs of infection. Urine is negative. Urine drug screen positive for cannabinoids, otherwise unremarkable. Viral swabs negative. CT scan of abdomen/pelvis was obtained and without significant acute findings. Does show small pericardial effusion. Patient without any chest pain or shortness of breath. Discussed with patient to have follow-up outpatient for this. She reports she had a recent echocardiogram performed which was normal. Patient is feeling much better on re-evaluation and was supportive therapy. She is able to tolerate p.o. intake. Feels comfortable going home at this time. Advised patient's laboratory studies did appear very dehydrated and encouraged her to drink plenty of fluids at home, have close follow-up with PCP/GI. She is in agreement with plan, given strict return precautions. Discharged in stable condition. Medical Records Attestation: I reviewed the patient's medical records. Lab Data Attestation: I reviewed the patient's lab results. 05/22/25 09:07 05/22/25 09:07 Labs: Lab Results 05/22/25 05/22/25 05/22/25 Range/Units 09:07 09:22 09:23 WBC 17.8 H (4.5-10.0) K/mm3 RBC 4.89 (4.2-5.4) M/mm3 Hgb 13.6 (12.0-15.0) g/dL Hct 40.1 (37.0-47.0) % MCV 82.0 (80-100) fl MCH 27.8 (26-34) pg MCHC 33.9 (32-36) g/dl RDW 14.6 H (11.5-14.5) % Plt Count 365 (150-375) k/mm3 MPV 11.2 H (7.4-10.4) fl Immature Gran % (Auto) 0.5 (0-0.5) % Neut % (Auto) 79.6 H (45.5-73.1) % Lymph % (Auto) 10.2 L (18.3-44.2) % [place] % (Auto) 9.4 H (2.6-8.5) % Eos % (Auto) 0.1 (0-4.4) % Baso % (Auto) 0.2 (0.2-1.2) % Lymph # (Auto) 1.82 (0.9-3.2) K/mm3 [place] # (Auto) 1.7 H (0.1-0.6) K/mm3 Eos # (Auto) 0.0 (0-0.3) K/mm3 Baso # (Auto) 0.0 (0.0-0.1) K/mm3 Abs Immat Gran (auto) 0.09 H (0.00-0.031) K/mm3 Absolute Neuts (auto) 14.1 H (1.3-6.7) K/mm3 Absolute Nucleated RBC 0.000 (0.0-0.012) K/mm3 Nucleated RBC % 0.0 (0.0-0.2) % Sodium 137 (137-145) mmol/L Potassium 3.2 L (3.4-5.0) mmol/L Chloride 94 L (98-107) mmol/L Carbon Dioxide 26 (22-30) mmol/L Anion Gap 17 H (4-12) mmol/L BUN 20 H D (7-17) mg/dL Creatinine 1.14 H (0.7-1.0) mg/dL Estim Creat Clear Calc 55 ml/min Estimated GFR 51 L (59 - ) Glucose 123 H (65-110) mg/dL Calcium 10.4 H (8.4-10.2) mg/dL Magnesium 1.3 L (1.6-2.3) mg/dL Total Bilirubin 0.5 (0.2-1.3) mg/dL AST 46 H (14-36) U/L ALT 36 H (6-35) U/L Alkaline Phosphatase 127 H (38-126) U/L Total Protein 8.8 H (6.3-8.2) g/dL Albumin 5.1 (3.5-5.1) g/dL Lipase 103 (23-300) U/L Urine Color Dark yellow (Yellow) Urine Appearance Cloudy H (Clear) Urine pH 5.5 (5.0-9.0) Ur Specific [place] 1.031 (1.001-1.035) Urine Protein 3+ H (Negative) mg/dL Urine Glucose (UA) Negative (Negative) mg/dL Urine Ketones Trace H (Negative) mg/dL Ur Blood (Man) Trace (Negative) Urine Nitrate Negative (Negative) Urine Bilirubin Negative (Negative) Urine Urobilinogen 1.0 (<2.0) mg/dL Add Ur Microanalysis Reviewed Leukocyte Esterase Rfl Negative (Negative) LIZANDRO/UL Urine RBC 3-5 H (0-2) /hpf Urine WBC 0-5 (0-3) /hpf Ur Squamous Epith Cells Moderate (Few) /hpf Urine Bacteria Rare /hpf Urine Casts >20 Hyaline Casts 3-4 H (None) /lpf Urine Mucus Present /lpf POC Urine HCG, Qual (Negative) Urine Opiates Screen Negative (Negative) Urine Methadone Screen Negative (Negative) Ur Barbiturates Screen Negative (Negative) Ur Phencyclidine Scrn Negative (Negative) Ur Amphetamine Screen Negative (Negative) U Benzodiazepines Scrn Negative (Negative) Urine Cocaine Screen Negative (Negative) U Cannabinoids Screen Positive A (Negative) Influenza A (RT-PCR) (Negative) Influenza B (RT-PCR) (Negative) RSV (RT-PCR) (Negative) SARS-CoV-2 RNA (RT-PCR) (Negative) 05/22/25 05/22/25 Range/Units 09:26 09:56 WBC (4.5-10.0) K/mm3 RBC (4.2-5.4) M/mm3 Hgb (12.0-15.0) g/dL Hct (37.0-47.0) % MCV (80-100) fl MCH (26-34) pg MCHC (32-36) g/dl RDW (11.5-14.5) % Plt Count (150-375) k/mm3 MPV (7.4-10.4) fl Immature Gran % (Auto) (0-0.5) % Neut % (Auto) (45.5-73.1) % Lymph % (Auto) (18.3-44.2) % [place] % (Auto) (2.6-8.5) % Eos % (Auto) (0-4.4) % Baso % (Auto) (0.2-1.2) % Lymph # (Auto) (0.9-3.2) K/mm3 [place] # (Auto) (0.1-0.6) K/mm3 Eos # (Auto) (0-0.3) K/mm3 Baso # (Auto) (0.0-0.1) K/mm3 Abs Immat Gran (auto) (0.00-0.031) K/mm3 Absolute Neuts (auto) (1.3-6.7) K/mm3 Absolute Nucleated RBC (0.0-0.012) K/mm3 Nucleated RBC % (0.0-0.2) % Sodium (137-145) mmol/L Potassium (3.4-5.0) mmol/L Chloride (98-107) mmol/L Carbon Dioxide (22-30) mmol/L Anion Gap (4-12) mmol/L BUN (7-17) mg/dL Creatinine (0.7-1.0) mg/dL Estim Creat Clear Calc ml/min Estimated GFR (59 - ) Glucose (65-110) mg/dL Calcium (8.4-10.2) mg/dL Magnesium (1.6-2.3) mg/dL Total Bilirubin (0.2-1.3) mg/dL AST (14-36) U/L ALT (6-35) U/L Alkaline Phosphatase (38-126) U/L Total Protein (6.3-8.2) g/dL Albumin (3.5-5.1) g/dL Lipase (23-300) U/L Urine Color (Yellow) Urine Appearance (Clear) Urine pH (5.0-9.0) Ur Specific [place] (1.001-1.035) Urine Protein (Negative) mg/dL Urine Glucose (UA) (Negative) mg/dL Urine Ketones (Negative) mg/dL Ur Blood (Man) (Negative) Urine Nitrate (Negative) Urine Bilirubin (Negative) Urine Urobilinogen (<2.0) mg/dL Add Ur Microanalysis Leukocyte Esterase Rfl (Negative) LIZANDRO/UL Urine RBC (0-2) /hpf Urine WBC (0-3) /hpf Ur Squamous Epith Cells (Few) /hpf Urine Bacteria /hpf Urine Casts Hyaline Casts (None) /lpf Urine Mucus /lpf POC Urine HCG, Qual Negative (Negative) Urine Opiates Screen (Negative) Urine Methadone Screen (Negative) Ur Barbiturates Screen (Negative) Ur Phencyclidine Scrn (Negative) Ur Amphetamine Screen (Negative) U Benzodiazepines Scrn (Negative) Urine Cocaine Screen (Negative) U Cannabinoids Screen (Negative) Influenza A (RT-PCR) Negative (Negative) Influenza B (RT-PCR) Negative (Negative) RSV (RT-PCR) Negative (Negative) SARS-CoV-2 RNA (RT-PCR) Negative (Negative) Imaging Data Attestation: I personally reviewed and interpreted this imaging study as follows: Radiologist's impression: ITS Impressions Abdomen/Pelvis CT 05/22/25 09:55 IMPRESSION: 1. Small pericardial effusion. 2. Left inguinal hernia containing fat. Discharge Plan Discharge Clinical Impression: Dehydration, Hypomagnesemia Nausea and vomiting Qualifiers: Vomiting type: unspecified Qualified Code(s): R11.2 - Nausea with vomiting, unspecified Patient Disposition: Home Condition: Stable Instructions: Antibiotic Form, Dehydration (ED), Clear Liquid Diet (ED), Acute Nausea and Vomiting (ED) Additional Instructions: Utilize your home nausea medicines as needed for further nausea. Take magnesium supplement over the next several days. Increase fluid intake. Recommend electrolyte rich fluids, gatorade, pedialyte, body armour. Recommend clear liquids or bland diet until symptoms improve, such as bananas, rice, applesauce, toast, or crackers. Follow up with your primary care doctor and GI specialist for further evaluation. Return to the ED if you experience worsening or severe symptoms, unable to keep down food or drink, severe pain, fevers, rectal bleeding, vomiting blood, or any other symptoms of concern. Recommend avoiding marijuana use as this may contribute to your nausea/vomiting. Patient Language: Georgian Prescriptions: New magnesium oxide 400 mg magnesium capsule 400 mg PO DAILY Qty: 5 0RF No Action metoclopramide HCl [Reglan] 5 mg tablet 5 mg PO QID promethazine 25 mg tablet 25 mg PO Q6H PRN (Reason: nausea and vomiting) tizanidine 2 mg tablet 2 mg PO Q8H trazodone 150 mg tablet 150 mg PO HS PRN (Reason: sleep) oxcarbazepine 300 mg tablet 300 mg PO BID paroxetine HCl 20 mg tablet 20 mg PO QAM omeprazole 40 mg capsule,delayed release(DR/EC) 40 mg PO BID atorvastatin [Lipitor] 40 mg tablet 40 mg PO DAILY gabapentin 300 mg capsule 300 mg PO TID vancomycin 125 mg capsule 125 mg PO QID Qty: 40 0RF potassium chloride [K-Tab] 20 mEq tablet extended release 40 meq PO DAILY Qty: 20 0RF ondansetron HCl 4 mg tablet 4 mg PO Q8H Qty: 30 0RF Follow-up/Referrals: UNKNOWN,DOCTOR [Primary Care Provider] Time of Disposition: 12:11
[2025-05-22 09:43] LABS: Add Urine Microscopic? YES; Appearance Urine Cloudy (Clear); Glucose Urine UA Negative (Negative); Leukocyte Esterase Ur Negative LEU/UL (Negative); Need Manual Microscopic Reviewed; Nitrate Urine Negative (Negative); Non Pathogenic Casts >20; Specific Grav Ur 1.031 (1.001-1.035)
[2025-05-22 09:48] LABS: Magnesium 1.3 mg/dL (1.6-2.3)
[2025-05-22] MEDS: SODIUM CHLORIDE 0.9% IV 1,000 ML 999 ML IV CONT ×2 (09:49→09:50)
--- OUTSIDE RECORDS SUMMARY | 2025-05-22 09:49 | XMS_ITS | Clinical Summary ---
Author Organization [facility] Address [address] [place] [id number] Care Team Providers Care Deli Cutter Slicer Name Role Phone Bisi Reyes SHIRT PRESSER Primary Care Provider + Allergies Active Allergy Reactions Criticality Noted Date Comments Influenza Virus Vaccines Rash Medium 11/07/2024 Mushroom Nausea & Vomiting Low 12/12/2024 Mushroom Nausea And Vomiting Low 12/12/2024 Tirzepatide (Weight Loss) Vomiting [...] (40 mg total) by mouth daily Active traZODone (DESYREL) 100 mg tablet Take 1 tablet (100 mg total) by mouth nightly Active omeprazole (PriLOSEC) 40 mg capsule Take 1 capsule (40 mg total) by mouth 2 (two) times a day 180 capsule 3 12/19/19 25 Active promethazine (PHENERGAN) 25 mg tablet Take 1 tablet (25 mg total) by mouth every 6 (six) hours as needed for nausea or vomiting 1 - 2 times daily, uses zofran in between as needed 30 tablet 1 01/10/20 25 Active PARoxetine (PAXIL) 20 mg tablet Take 1 tablet (20 mg total) by mouth daily 02/29/20 25 Active tiZANidine (ZANAFLEX) 2 mg tablet Take 1 tablet (2 mg total) by mouth nightly 02/27/20 25 Active promethazine (PHENERGAN) 25 mg suppository Insert 1 suppository (25 mg total) into the rectum every 6 (six) hours as needed for nausea or vomiting 30 suppository 1 04/06/20 25 Active metoclopramide (REGLAN) 10 mg tabletIndications :Nausea Take 1 tablet (10 mg total) by mouth 4 (four) times a day 240 tablet 3 04/06/20 25 026 Active ondansetron (ZOFRAN) 4 mg tabletIndications :Nausea and vomiting, unspecified vomiting type Take 1 tablet (4 mg total) by mouth every 8 (eight) hours as needed for nausea or vomiting 90 tablet 3 04/09/20 25 025 Active ondansetron ODT (ZOFRAN-ODT) 4 mg disintegrating tablet Take 1 tablet (4 mg total) by mouth every 8 (eight) hours as needed for nausea or vomiting 20 tablet 04/17/20 25 Active metoclopramide (REGLAN) 10 mg tabletIndications :As needed for gastroparesis Take 1 tablet (10 mg total) by mouth 3 (three) times a day as needed (As needed for gastroparesis) 30 tablet 04/17/20 25 Active mirtazapine (REMERON) 30 mg tabletIndications :Chronic nausea Take 1 tablet (30 mg total) by mouth nightly 90 tablet 3 04/20/20 25 025 Kayla stanton(The rapy complete d) Active Problems Problem Noted Date Diagnosed Date Gastroesophageal reflux disease 04/09/2025 Nausea and vomiting 12/12/2024 Assessment & Plan [...] Encounters Date Type Department Care Team Description 05/22/2025 Telephone [facility] [address] [place] [phone] Megan Vu LPN Follow-up 05/21/2025 Results Follow-Up [facility] [address] [place] [phone] Eugene Francis, DO Surgical pathology 05/17/2025 1:00 PM CDT - 05/17/2025 1:30 PM CDT Surgery [facility] [address] [place] [phone] Eugene Francis, DO ESOPHAGOGASTRODUODENOSCOPY BIOPSY 05/17/2025 12:42 PM CDT Anesthesia Event [facility] [address] [place] [phone] Eugene Francis, DO Vibha Silva CRNA 05/17/2025 11:55 AM CDT - 05/17/2025 1:39 PM CDT Hospital Encounter [facility] [address] [place] [phone] Eugene Francis, DO Nausea and vomiting, unspecified vomiting type; Gastroesophageal reflux disease, unspecified whether esophagitis present Discharge Disposition: Discharge to home or self care 05/15/2025 Telephone [facility] [address] [place] [phone] Michaela Escoto LPN 05/04/2025 2:36 PM CDT - 05/04/2025 11:59 PM CDT Hospital Encounter [facility] [address] [place] [phone] Uterine mass Discharge Disposition: Discharge to home or self care 05/04/2025 2:00 PM CDT - 05/04/2025 11:59 PM CDT Hospital Encounter [facility] [address] [place] [phone] Left atrial enlargement Discharge Disposition: Discharge to home or self care 04/20/2025 Orders Only [facility] [address] [place] [phone] Eugene Francis DO Chronic nausea (Primary Dx) 04/19/2025 1:34 PM CDT - 04/19/2025 5:24 PM CDT Emergency [facility] Emergency Department [address] [place] [phone] Gastroparesis (Primary Dx); Dehydration Discharge Disposition: Discharge to home or self care 04/17/2025 7:56 PM CDT - 04/17/2025 11:19 PM CDT Emergency [facility] Emergency Department [address] [place] [phone] Clay Coyle MD Abdominal pain (Primary Dx); Nausea and vomiting, unspecified vomiting type; Colitis Discharge Disposition: Discharge to home or self care 04/16/2025 11:59 AM CDT - 04/16/2025 11:59 PM CDT Hospital Encounter [facility] [address] [place] [phone] Chronic nausea Discharge Disposition: Discharge to home or self care 04/12/2025 6:29 PM CDT - 04/12/2025 11:59 PM CDT Hospital Encounter [address] [phone] Clostridium difficile diarrh ea Discharge Disposition: Discharge to home or self care 04/09/2025 Results Follow-Up [facility] [address] [place] [phone] Eoff, Humera Mitchell NP Allergen Alpha-gal (food) IgE, C. difficile testing Stool, [place] Gastric Emptying Study 04/09/2025 Orders Only [facility] [address] [place] [phone] Eoff, Humera Mitchell NP Nausea and vomiting, unspecified vomiting type (Primary Dx) 04/06/2025 2:24 PM CDT - 04/06/2025 11:59 PM CDT Hospital Encounter [address] [phone] Chronic nausea Discharge Disposition: Discharge to home or self care 04/06/2025 1:30 PM CDT Office Visit [facility] [address] [phone] Eoff, Humera Mitchell NP Clostridium difficile diarrhea (Primary Dx); Chronic nausea 03/30/2025 1:28 PM CDT - 03/30/2025 6:12 PM CDT Emergency [facility] Emergency Department [address] [place] [phone] Nausea and vomiting, unspecified vomiting type (Primary [...] Smoking Tobacco: Former Cigarettes Smokeless Tobacco: Never Alcohol Use Standard Drinks/Week Comments Not Currently 0 (1 standard drink = 0.6 oz pur e alcohol) AUDIT-C Answer Date Recorded Q1: How often do you have a drink containing alcohol? Never 05/17/2025 Q2: How many drinks containi ng alcohol do you have on a typical day when you are drinking? Patient does not drink Q3: How often do you have si x or more drinks on one occasion? Never 05/17/2025 Personal Safety Answer Date Recorded Have you ever been in or are you currently in a harmful physical or emotional relationship or is someone making you feel afraid or unsafe? 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 Gender Identity Female 10/26/2024 2:33 PM HEADING REPAIRER Sexual Orientation Bisexual 11/14/2024 5: 51 AM CDT Obstetrics History Para Term AB IAB SAB Ectopic Multiple Livin g Live Births 8 5 5 Date Outcome GA Total Labor Labor/2nd/3rd Weight Sex Type Anes PTL Ting A1 A5 Name Clin Term Term Term Term Term Last Filed Vital Signs Vital Sign Reading Time Taken Comments Blood Pressure 92/62 05/17/2025 1:25 PM CDT Pulse 76 05/17/2025 1:25 PM CDT Temperature 35.9 C (96.6 F) 05/17/2025 12:23 PM CDT Respiratory Rate 13 05/17/2025 1:25 PM CDT Oxygen Saturation 90% 05/17/2025 1:25 PM CDT Inhaled Oxygen Concentration - - Weight 79.4 kg (175 lb) 04/19/2025 11:58 AM CDT Height 166.4 cm (5' 5.5) 04/19/2025 11:58 AM CD T Body Mass Index 28.68 04/19/2025 11:58 AM CDT Plan of Treatment Health Maintenance Due [...] Procedure Name Priority Date/Time Associated Diagnosis Comments EGD 05/17/2025 1:00 PM CDT SURGICAL PATHOLOGY Routine 05/17/2025 12:48 PM CDT Nausea and vomiting, unspecified vomiting type Gastroesophagea l reflux disease, unspecified whether esophagitis present ESOPHAGOGASTRODUODENOSCOPY BIOPSY 05/17/2025 12:42 PM CDT Nausea and vomiting, unspecified vomiting type Gastroesophagea l reflux disease, unspecified whether esophagitis present US PELVIS W ENDOVAGINAL Schedule Routine, Read Routine (OP Routine) 05/04/2025 3:47 PM CDT Uterine mass TRANSTHORACIC ECHO (TTE) COMPLETE W DOPPLER/CF WO CONTRAST Routine 05/04/2025 3:16 PM CDT Left atrial enlargement EGFR STAT 04/19/2025 12:50 PM CDT DIFFERENTIAL AUTO STAT 04/19/2025 12:50 PM CDT COMPREHENSIVE METABOLIC PANEL STAT 12:50 PM CDT CBC WITH AUTO DIFFERENTIAL STAT 04/19 12:50 PM CDT ECG 12-LEAD STAT 04/19/2025 12:[address] ABDOMEN PELVIS W CONTRAST ED 08/2025 9:47 PM CDT POCT HCG, URINE Routine 04/17/2025 8:40 PM CDT EGFR STAT 04/17/2025 8:34 PM CDT URINALYSIS, MICROSCOPIC ONLY STAT 08/2025 8:34 PM CDT DIFFERENTIAL AUTO STAT 04/17/2025 8:34 PM CDT LACTATE STAT 04/17/2025 8:34 PM CDT CRP (ACUTE PHASE) STAT 04/17/2025 8:34 PM CDT TROPONIN T HIGH-SENSITIVITY SERIES (BASELINE, 2HR, 4HR, 6HR) STAT 04/17/2025 8:34 PM CDT LIPASE STAT 04/17/2025 8:34 PM CDT COMPREHENSIVE METABOLIC PANEL STAT 8:34 PM CDT CBC WITH AUTO DIFFERENTIAL STAT 04/17 8:34 PM CDT URINALYSIS AND REFLEX TO MICROSCOPIC AND CULTURE STAT 04/17/2025 8:34 PM CDT ECG 12-LEAD STAT 04/17/2025 8:04 PM CDT NM GASTRIC EMPTYING STUDY Schedule Routine, Read Routine (OP Routine) 04/16/2025 4:31 PM CDT Chronic nausea C. DIFFICILE TESTING Routine 04/12/2025 6:15 PM CDT Clostridium difficile diarrhea TISSUE TRANSGLUTAMINASE, IGA Routine 09/2024 1:59 PM CDT ALLERGEN ALPHA-GAL (FOOD) IGE Routine 1:59 PM CDT Chronic nausea CELIAC REFLEX PANEL Routine 04/06/2025 1:59 PM CDT Chronic nausea TROPONIN T HIGH-SENSITIVITY 2-HOUR Timed 03/30/2025 3:[address] ABDOMEN PELVIS W CONTRAST ED 2:53 PM CDT URINALYSIS, MICROSCOPIC ONLY STAT 2:30 PM CDT URINALYSIS AND REFLEX TO MICROSCOPIC AND CULTURE STAT 03/30/2025 2:30 PM CDT POCT HCG, URINE Routine 03/30/2025 2:28 PM CDT EGFR STAT 03/30/2025 1:45 PM CDT DIFFERENTIAL AUTO STAT 03/30/2025 1:45 PM CDT TROPONIN T HIGH-SENSITIVITY SERIES (BASELINE, 2HR, 4HR, 6HR) STAT 03/30/2025 1:45 PM CDT LIPASE STAT 03/30/2025 1:45 PM CDT COMPREHENSIVE METABOLIC PANEL STAT 1:45 PM CDT CBC WITH AUTO DIFFERENTIAL STAT 03/30 1:45 PM CDT ECG 12-LEAD STAT 03/30/2025 1:38 PM CDT DIAGNOSTIC MAMMOGRAM BILATER AL W WALLY Schedule Routine, Read Routine (OP Routine) 12/05/2024 2:01 PM CDT Breast pain, right from Last 3 Months or Most Recently Relevant to Health Maintenance Results * EGD (05/17/2025 1:00 PM CDT) Anatomical Region Laterality Modality Other Narrative Procedure Note Eugene Francis DO - 05/17/2025 1:00 PM CDT [facility] Gastroenter[facility] Patient Name: Ming Parra Procedure Date: 05/17/2025 1:00 PM Date of : 1975 Admit Type: Outpatient Age: 49 Gender: Female Note Status: Finalized Attending MD: Eugene Francis D.O., Procedure: Upper GI endoscopy Indications: Heartburn, Nausea with vomiting Providers: Eugene Francis D.O., Cassandra Vila RN,Mera Smith RN, Keri Penaloza, Logging Specialist, AnthonyV. Eri CRNA Referring MD: Bisi Reyes, F.N.P. (Referring MD), Humera Lees F.N.P. (Referring MD) Medicines: Monitored Anesthesia Care Complications: No immediate complications. Estimated Blood Loss: Estimated blood loss: none. Procedure: Pre-Anesthesia Assessment: - Prior to the procedure, a History and Physical was performed, and patient medications and allergies were reviewed. The patient is competent. The risks and benefits of the procedure and the sedation options and risks were discussed with the patient. All questions were answered and informed consent was obtained. Patient identificationand proposed procedure were verified by the physician in thepre-procedure area. Mental Status Examination: alert and oriented. AirwayExamination: normal oropharyngeal airway and neck mobility. RespiratoryExamination: clear to auscultation. CV Examination: normal. ProphylacticAntibiotics: The patient does not require prophylactic antibiotics. Prior Anticoagulants: The patient has taken no anticoagulant orantiplatelet agents. ASA Grade Assessment: II - A patient with mild systemicdisease. After reviewing the risks and benefits, the patient was deemed in satisfactory condition to undergo the procedure. The anesthesia planwas to use monitored anesthesia care (MAC). Immediately prior to administration of medications, the patient was re-assessed foradequacy to receive sedatives. The heart rate, respiratory rate, oxygen saturations, blood pressure, adequacy of pulmonary ventilation, and response to care were monitored throughout the procedure. Thephysical status of the patient was re-assessed after the procedure. The benefits, risks, and alternatives to the procedure and sedationwere discussed and informed consent was obtained. The scope was passedunder direct vision. The Endoscope was introduced through the mouth, and advanced to the second part of duodenum. The upper GI endoscopy was accomplished without difficulty. The patient tolerated the procedure well. Findings: The examined duodenum was normal. Biopsies were taken with a cold forceps for histology. The entire examined stomach was normal. Biopsies were taken with acold forceps for Helicobacter pylori testing. LA Grade A (one or more mucosal breaks less than 5 mm, not extending between tops of 2 mucosal folds) esophagitis with no bleeding wasfound in the lower third of the esophagus. Biopsies were taken with a cold forceps for histology. The upper third of the esophagus and middle third of the esophaguswere normal. This was biopsied with a cold forceps for evaluation of eosinophilic esophagitis. Impression: - Normal examined duodenum. Biopsied. - Normal stomach. Biopsied. - LA Grade A reflux esophagitis with no bleeding.Rule out Kitchen's esophagus. Biopsied. - Normal upper third of esophagus and middle thirdof esophagus. Biopsied. - A duodenal ulcer was not seen. - Gastric ulcer(s) were not seen. - A malignant-appearing gastric tumor was notseen. - The examination was otherwise normal. Recommendation: - Await pathology results. - Discharge patient to home. - Call Dr. Francis in one week ([phone]) forresults of the biopsy. - Follow an anti-reflux protocol including: eat smaller more frequent meals; do not lie down immediately after eating, wait at least threehours; do not wear tight clothes; if overweight, loseweight; discontinue tobacco; elevate the head of the bedfour to six inches; avoid chocolate and peppermint, if possible. Following an anti-reflux lifestyle, consisting of five factors, including maintaining a healthy body weight, staying physically active, not smoking, minimizing intake of coffee, tea, or soda, and eating a healthy diet reduces the incidence of reflux symptoms. - This patient's symptoms are most characteristicof post viral versus idiopathic gastroparesis. Await biopsies. Continue Reglan 5-10mg. one tablet thirty minutes before meals and at bedtime - Return to Bisi Reyes, F.N.P. and Humera Lees, F.N.P. as needed. Procedure Code(s): --- Professional --- 78660, Esophagogastroduodenoscopy, flexible, transoral; with biopsy, single or multiple Diagnosis Code(s): --- Professional --- R11.2, Nausea with vomiting, unspecified R12, Heartburn K21.00, Gastro-esophageal reflux disease with esophagitis, without bleeding CPT copyright 2022 [employer]. All rights reserved. The codes documented in this report are preliminary and upon drug department worker reviewmay be revised to meet current compliance requirements. Electronically signed by Eugene Francis D.O. Eugene Francis D.O. 05/17/2025 12:55:50 PM Number of Addenda: 0 Note Initiated On: 05/16/2025 1:50 PM Eugene Francis DO ENDOSCOPY PROCEDURES Final Res ult * Surgical pathology (05/17/2025 12:48 PM CDT) Tissue (Duodenum, Biopsy) 05/17/2025 12:48 PM CDT Tissue specimen (specimen) (Antrum and/or Body) 05/17/2025 12:49 PM CDT Tissue specimen (specimen) (Esophageal biopsy) 05/17/2025 12:50 PM CDT Tissue specimen (specimen) (Esophageal biopsy) 05/17/2025 12:51 PM CDT Narrative PATHOLOGY [facility] - 05/21/2025 1:[address] PM [address] [address] Tele: Masha Delarosa MD - Tool Sharpener Note to Patients: This report may contain a detailed description of human tissue sent by a health care provider to the laboratory for pathologic evaluation. The content of this report is essential for diagnosis and may provide important critical findings. This information may be unfamiliar to patients to review without a medical professional present. It is advised that the patient review this report in the presence of a health care provider who can answer questions and explain the details. SURGICAL PATHOLOGY REPORT Patient Name: MING PARRA Address: [address] [place] [address]- Gender: F : 1975 (Age: 49) Service: Gastro Location: ENDO, [facility] #: [id number] Patient Type: [facility] Same Day Surgery Taken: 05/17/2025 Received 05/18/2025 Reported: 05/21/2025 Physician(s): Margaux Fitzpatrick NP DIAGNOSIS: Duodenum, biopsy: - No histopathologic abnormality Stomach, antrum, biopsy: - Mild chronic gastritis - No Helicobacter pylori organisms identified with routine stain Esophagus, lower third, biopsy: - Squamous and gastric type mucosa with mild reactive epithelial changes - No intestinal metaplasia, dysplasia or malignancy identified Esophagus, middle third, biopsy: - Squamous mucosa with no histopathologic abnormality [facility]/05/21/2025 13:20 Examining Pathologist: Wan Pollock MD, PhD Report Reviewed and Electronically Signed By Wan Pollock MD, PhD SPECIMEN TYPE: A: DUODENUM B: ANTRUM C: LOWER THIRD ESOPHAGUS D: MIDDLE THIRD ESOPHAGUS CLINICAL IMPRESSION AND HISTORY: 49-year-old woman with heartburn, nausea with vomiting. Exam findings: The examined duodenum. Biopsied to evaluate for celiac disease. Normal stomach. Biopsied to evaluate for Helicobacter pylori. LA grade a reflux esophagitis with no bleeding. Please evaluate for Kitchen's esophagus. Biopsied. Normal upper third of esophagus middle third of esophagus. Biopsied. Duodenal ulcer was not seen. Gastric ulcers were not seen. A malignant appearing gastric tumor was not seen. The examination was otherwise normal. GROSS DESCRIPTION: A. Received in formalin labeled MING BROWN and duodenum are multiple hunter tissue fragments, 1.1 x 0.2 x 0.2 cm in aggregate. The specimen is filtered and entirely submitted in A1. B. Received in formalin labeled MING BROWN and antrum are multiple hunter tissue fragments, 1.2 x 0.2 x 0.2 cm in aggregate. The specimen is filtered and entirely submitted in B1. C. Received in formalin labeled MING BROWN and lower third esophagus are multiple hunter tissue fragments, 1.1 x 0.2 x 0.1 cm in aggregate. The specimen is filtered and entirely submitted in C1. D. Received in formalin labeled MING BROWN and middle third esophagus are multiple hunter tissue fragments, 1.5 x 0.2 x 0.1 cm in aggregate. The specimen is filtered and entirely submitted in D1. jxi/05/18/2025 08:44 ,TEN MICROSCOPIC DESCRIPTION: Sections of the duodenal biopsy demonstrate unremarkable duodenal mucosa with normal villous architecture, no increased inflammation and no evidence of infection, dysplasia or malignancy. Sections of the gastric antrum biopsy demonstrate mild chronic gastritis without acute inflammation, intestinal metaplasia, or evidence of malignancy. No Helicobacter pylori organisms identified with routine stain. Sections of the lower third esophagus biopsy demonstrate squamous and gastric type mucosa with mild reactive epithelial changes. No intestinal metaplasia, dysplasia or malignancy identified. Sections of the middle third esophagus biopsy demonstrate squamous mucosa with no histopathologic abnormality. No eosinophils are seen. No glandular mucosa is present for evaluation. Clerical Data Follows A; 12561 B; 51081 C; 40897 D; 13770 REPORT IMAGES AND/OR SCANNED DOCUMENTS ONLY VIEWABLE IN PDF FORMAT The immunohistochemical test(s) cited in this report, if any, was developed and its performance characteristics determined by [facility] Department. It has not been cleared or approved by the U.S. Food and Drug Administration. The FDA has determined that such clearance or approval is not necessary. This test is used for clinical purposes. It should not be regarded as investigational or for research. [facility] is certified under the Clinical Laboratory Improvement Amendments of 1988 (CLIA) as qualified to perform high complexity testing. Immunostains were performed on formalin-fixed paraffin embedded tissue using a polymer diaminobenzidine chromogen detection system. Antibodies used may include clone SP1 (rabbit monoclonal, estrogen receptor), clone 1E2 (rabbit monoclonal progesterone receptor), Ki-67 (rabbit monoclonal, 30-9), CD117 (rabbit polyclonal, c-kit), and anti-Her-2/cipriano (4B5) (rabbit monoclonal primary antibody). In the event that immunohistochemistry or special stains have been performed, attending physician has confirmed appropriateness of controls. Frozen section, operating room consultation, gross examination and dissection, and case sign out may have been performed in part or completely in the following laboratories: [facility], [facility], [address] [place] [address]. us Eugene Francis DO LAB PATHOLOGY ORDERABLES Final Result PATHOLOGY [facility] [phone] * US Pelvis W Endovaginal (05/04/2025 3:47 PM CDT) Anatomical Region Laterality Modality Pelvis N/A Ultrasound 05/04/2025 3:50 PM CDT Impressions 05/04/2025 3:50 PM CDT 1. 9 mm hypoechoic mass within the endometrium which correlates well with patient's CT abnormality. This may represent a polyp or submucosal leiomyoma. Consider hysteroscopy to further evaluate. 2. Otherwise unremarkable pelvic sonogram. Electronically signed by: Jorje Nettles M.D. Narrative 05/04/2025 3:50 PM CDT EXAM: US PELVIS W ENDOVAGINAL CLINICAL HISTORY: CT of the pelvis demonstrating uterine mass. COMPARISON: CT of the pelvis dated 04/18/2025. TECHNIQUE: Transabdominal and endovaginal techniques were used. FINDINGS: Uterus: The uterus is anteverted. The uterus measures 6.8 x 3.5 x 4.5 cm. There is a 9 x 9 x 6 mm hypoechoic mass within the endometrium which may represent a polyp or possibly submucosal leiomyoma. The endometrial echo complex measures 7 mm in thickness. Right ovary: The right ovary measures 2.7 x 1.2 x 1.7 cm. The right ovary is normal in size, shape and echotexture. There is normal color flow in the right ovary. Left ovary: The left ovary measures 2.2 x 1.3 x 1.1 cm. The left ovary appears normal in size, shape and echotexture. There is normal color flow in the left ovary. Color flow and spectral waveform analysis are normal. Fluid: There is a small amount of free fluid identified within the cul-de-sac. Procedure Note Jorje Nettles MD - 05/04/2025 EXAM: US PELVIS W ENDOVAGINAL CLINICAL HISTORY: CT of the pelvis demonstrating uterine mass. COMPARISON: CT of the pelvis dated 04/18/2025. TECHNIQUE: Transabdominal and endovaginal techniques were used. FINDINGS: Uterus: The uterus is anteverted. The uterus measures 6.8 x 3.5 x 4.5 cm. There is a 9 x 9 x 6 mm hypoechoic mass within the endometrium which may represent a polyp or possibly submucosal leiomyoma. The endometrial echo complex measures 7 mm in thickness. Right ovary: The right ovary measures 2.7 x 1.2 x 1.7 cm. The right ovary is normal in size, shape and echotexture. There is normal color flow in the right ovary. Left ovary: The left ovary measures 2.2 x 1.3 x 1.1 cm. The left ovary appears normal in size, shape and echotexture. There is normal color flow in the left ovary. Color flow and spectral waveform analysis are normal. Fluid: There is a small amount of free fluid identified within the cul-de-sac. IMPRESSION: 1. 9 mm hypoechoic mass within the endometrium which correlates well with patient's CT abnormality. This may represent a polyp or submucosal leiomyoma. Consider hysteroscopy to further evaluate. 2. Otherwise unremarkable pelvic sonogram. Electronically signed by: Jorje Nettles M.D. us Bisi Reyes NP IMG US PROCEDURES Final Result * TRANSTHORACIC ECHO (TTE) COMPLETE W DOPPLER/CF WO CONTRAST (05/04/2025 3:16 PM CDT) Estimated EF 60-65 % CONS SCIMAGE EF Mod BP 71 % CONS SCIMAGE Anatomical Region Laterality Modality Ultrasound 05/04/2025 2:32 PM CDT Narrative 05/04/2025 3:42 PM CDT [address] [address] ECHOCARDIOGRAM Patient Name: MING PARRA : 1975 Study Date: 05/04/2025 2:32:33 PM Sex: F Tech: [facility] Ref Provider: BISI REYES Height(Cm): 168 BSA: 1.92 Weight(Kg): 79.4 Heart Rate: 75 - PROCEDURES: Echocardiographic Report: Transthoracic Echocardiogram with complete 2D, M-Mode, Spectral and Color Flow Doppler examination. INDICATIONS: I51.7 Cardiomegaly. MEASUREMENTS: 2D/MM Value Range Doppler Value Range IVSd 2D 0.94 cm [ 0.60 - 0.90 ] AV Peak Soren 1.3 m/s [ 1.0 - 1.7 ] LVIDd 2D 4.34 cm [ 3.80 - 5.20 ] AV Peak PG 6.5 mmHg LVIDs 2D 2.87 cm [ 2.20 - 3.50 ] AV Mean PG 3.9 mmHg LVPWd 2D 1.13 cm [ 0.60 - 0.90 ] AV VTI 27.3 cm EF Mod BP 71 % [ 54 - 74 ] MARCI VTI 2.3 cm2 Estimated EF 60-65 % LVOT Peak Soren 0.93 m/s [ 0.70 - 1.10 ] LA Dimen 2D 3.41 cm [ 2.70 - 3.80 ] LVOT Diam 2.0 cm LA Volume Index 14.70 ml/m2 [ 16.00 - 34.00 ] LVOT Peak PG 3.3 mmHg LVOT VTI 20.3 cm MV Peak PG 6.6 mmHg MV Mean PG 4.1 mmHg MV E Peak Soren 1.2 m/s [ 0.6 - 1.3 ] MV A Peak Soren 1.3 m/s [ 1.0 - 1.2 ] MV PHT 73.4 ms [ 20.0 - 100.0 ] MV Decel Time 338.0 ms [ 104.0 - 258.0 ] MV E/A Ratio 0.9 TR Peak Soren 2.6 m/s [ 1.0 - 2.8 ] TR Peak PG 25.9 mmHg PV Peak Soren 0.7 m/s [ 0.4 - 0.8 ] PV Peak PG 1.9 mmHg Lat E` Soren 0.11 m/s [ 0.10 - 0.15 ] E/E` 10.91 2D/MM Value Range Doppler Value Range - FINDINGS: BP: Blood pressure: 120/74 mmHg. Left Ventricle: Normal global and regional left ventricular systolic function. Ejection Fraction is estimated to be 60-65 %. Normal left ventricular cavity size. LV wall thickness is within normal limits. Right Ventricle: Normal right ventricular systolic function. Normal right ventricular size. Left Atrium: The left atrium is normal in size. Right Atrium: The right atrium is normal in size. Atrial Septum: Normal appearing atrial septum. Mitral Valve: Normal appearance of the mitral valve leaflets. Mitral stenosis is absent. Trace mitral valve regurgitation. Aortic Valve: Grossly normal appearing aortic valve. There is no aortic stenosis. There is no aortic regurgitation. Tricuspid Valve: Normal appearance of the tricuspid leaflets. Trace tricuspid regurgitation. TR envelope inadequate to estimate RVSP. Pulmonic Valve: Normal appearrance and function of the pulmonic valve. Pericardium: No significant pericardial effusion. Aortic Root and Aorta: Normal caliber aortic root. Aortic Arch: Normal caliber aortic arch. IVC: Normal appearance of the inferior vena cava. CONCLUSIONS: 1. Normal global and regional left ventricular systolic function. Ejection Fraction is estimated to be 60-65 %. Normal left ventricular cavity size. LV wall thickness is within normal limits. 2. Normal right ventricular systolic function. Normal right ventricular size. Electronically Signed By: Jeremie Dillon [facility] Card 05/04/2025 3:41:58 PM CDT Procedure Note Jeremie Dillon MD - 05/04/[address] [address] ECHOCARDIOGRAM Patient Name: MING PARRA : 1975 Study Date: 05/04/2025 2:32:33 PM Sex: F Tech: [facility] Ref Provider: BISI REYES Height(Cm): 168 BSA: 1.92 Weight(Kg): 79.4 Heart Rate: 75 - PROCEDURES: Echocardiographic Report: Transthoracic Echocardiogram with complete 2D, M-Mode, Spectral and ColorFlow Doppler examination. INDICATIONS: I51.7 Cardiomegaly. MEASUREMENTS: 2D/MM Value Range DopplerValue Range IVSd 2D 0.94 cm [ 0.60 - 0.90 ] AV Peak Vel1.3 m/s [ 1.0 - 1.7 ] LVIDd 2D 4.34 cm [ 3.80 - 5.20 ] AV Peak PG6.5 mmHg LVIDs 2D 2.87 cm [ 2.20 - 3.50 ] AV Mean PG3.9 mmHg LVPWd 2D 1.13 cm [ 0.60 - 0.90 ] AV VTI27.3 cm EF Mod BP 71 % [ 54 - 74 ] MARCI VTI2.3 cm2 Estimated EF 60-65 % LVOT Peak Vel0.93 m/s [ 0.70 - 1.10 ] LA Dimen 2D 3.41 cm [ 2.70 - 3.80 ] LVOT Diam2.0 cm LA Volume Index 14.70 ml/m2 [ 16.00 - 34.00 ] LVOT Peak PG3.3 mmHg LVOT VTI 20.3 cm MV Peak PG 6.6 mmHg MV Mean PG 4.1 mmHg MV E Peak Soren 1.2 m/s [ 0.6 - 1.3 ] MV A Peak Soren 1.3 m/s [ 1.0 - 1.2 ] MV PHT 73.4 ms [ 20.0 - 100.0 ] MV Decel Time 338.0 ms [ 104.0 - 258.0 ] MV E/A Ratio 0.9 TR Peak Soren 2.6 m/s [ 1.0 - 2.8 ] TR Peak PG 25.9 mmHg PV Peak Soren 0.7 m/s [ 0.4 - 0.8 ] PV Peak PG 1.9 mmHg Lat E` Soren 0.11 m/s [ 0.10 - 0.15 ] E/E` 10.91 2D/MM Value Range DopplerValue Range - FINDINGS: BP: Blood pressure: 120/74 mmHg. Left Ventricle: Normal global and regional left ventricular systolic function. EjectionFraction is estimated to be 60-65 %. Normal left ventricular cavity size. LV wallthickness is within normal limits. Right Ventricle: Normal right ventricular systolic function. Normal right ventricularsize. Left Atrium: The left atrium is normal in size. Right Atrium: The right atrium is normal in size. Atrial Septum: Normal appearing atrial septum. Mitral Valve: Normal appearance of the mitral valve leaflets. Mitral stenosis is absent.Trace mitral valve regurgitation. Aortic Valve: Grossly normal appearing aortic valve. There is no aortic stenosis. Thereis no aortic regurgitation. Tricuspid Valve: Normal appearance of the tricuspid leaflets. Trace tricuspidregurgitation. TR envelope inadequate to estimate RVSP. Pulmonic Valve: Normal appearrance and function of the pulmonic valve. Pericardium: No significant pericardial effusion. Aortic Root and Aorta: Normal caliber aortic root. Aortic Arch: Normal caliber aortic arch. IVC: Normal appearance of the inferior vena cava. CONCLUSIONS: 1. Normal global and regional left ventricular systolic function. EjectionFraction is estimated to be 60-65 %. Normal left ventricular cavity size. LV wallthickness is within normal limits. 2. Normal right ventricular systolic function. Normal right ventricularsize. Electronically Signed By: Jeremie Dillon [facility] Card 05/04/2025 3:41:58 PM CDT us Bisi Reyes NP CV ECHO PROCEDURES Final Result * eGFR (04/19/2025 12:50 PM CDT) eGFR 86 >=60 mL/min/1. 73 m2 Comment: Interpretive Data [...] interpretive data was last reviewed 2021. Blood 04/19/2025 12:5 0 PM CDT 04/19/2025 12:59 PM CDT us Julio Cesar Chavezos DO LAB BLOOD ORDERABLES Final Result [facility] ([place]) [address] Department [place] [address] * (ABNORMAL) Differential, auto (04/19/2025 12:50 PM CDT) Neutrophil abs 14.22(H) 1.50 - 6.50 K/cumm Imm gran abs 0.06 0.00 - 0.10 K/cumm [facility] ([place]) Lymphocyte abs 1.33 0.80 - 3.30 K/cumm [facility] ([place]) Monocyte abs 0.55 0.20 - 0.80 K/cumm [facility] ([place]) Eosinophil abs 0.00 0.00 - 0.50 K/cumm [facility] ([place]) Basophil abs 0.03 0.00 - 0.10 K/cumm [facility] ([place]) Neutrophil pct 87.8 % [facility] ([place]) Comment: Interpretive Data Percent cell count reference ranges are not reported, since discordance with absolute values may lead to misinterpretation of CBC data. Current Interpretive Data was last revised on 2017. Imm gran pct 0.4 % [facility] ([place]) Comment: Interpretive Data Percent cell count reference ranges are not reported, since discordance with absolute values may lead to misinterpretation of CBC data. Current Interpretive Data was last revised on 2017. Lymphocyte pct 8.2 % [facility] ([place]) Comment: Interpretive Data Percent cell count reference ranges are not reported, since discordance with absolute values may lead to misinterpretation of CBC data. Current Interpretive Data was last revised on 2017. Monocyte pct 3.4 % [facility] ([place]) Comment: Interpretive Data Percent cell count reference ranges are not reported, since discordance with absolute values may lead to misinterpretation of CBC data. Current Interpretive Data was last revised on 2017. Eosinophil pct 0.0 % [facility] ([place]) Comment: Interpretive Data Percent cell count reference ranges are not reported, since discordance with absolute values may lead to misinterpretation of CBC data. Current Interpretive Data was last revised on 2017. Basophil pct 0.2 % [facility] ([place]) Comment: Interpretive Data Percent cell count reference ranges are not reported, since discordance with absolute values may lead to misinterpretation of CBC data. Current Interpretive Data was last revised on 2017. Blood 04/19/2025 12:5 0 PM CDT 04/19/2025 12:59 PM CDT us Julio Cesar Quick DO LAB BLOOD ORDERABLES Final Result [facility]) [address] Department [place] [address] * (ABNORMAL) CBC with auto differential (04/19/2025 12:50 PM CDT) WBC 16.19(H) 3.80 - 9.90 K/cumm Hgb 12.7 11.9 - 15.5 g/dL [facility] ([place]) Hct 37.5 35.6 - 45.5 % [facility] ([place]) Plt 358 150 - 400 K/cumm [facility]) MPV 11.2 9.1 - 12.3 fL [facility] ([place]) RBC 4.66 3.90 - 5.20 M/cumm [facility] ([place]) MCV 80.5(L) 81.3 - 96.4 fL [facility] ([place]) MCH 27.3 27.1 - 33.3 pg [facility] ([place]) MCHC 33.9 32.3 - 35.7 g/dL [facility] ([place]) RDW CV 14.7 11.1 - 14.9 % [facility] ([place]) RDW SD 42.7 35.7 - 48.1 fL [facility] ([place]) NRBC abs 0.00 0.00 - 0.01 K/cumm [facility] ([place]) Blood Venous blood specimen / Unknown 04/19/2025 12:50 PM CDT 04/19/2025 12:59 PM CDT us Julio Cesar Quick DO LAB BLOOD ORDERABLES Final Result [facility] ([place]) [address] [place] [address] * (ABNORMAL) Comprehensive metabolic panel (04/19/2025 12:50 PM CDT) [facility] Sodium 139 135 - 145 mmol/L Potassium, pl 3.3 3.3 - 4.9 mmol/L [facility] ([place]) Chloride 99 97 - 110 mmol/L [facility] ([place]) CO2 18.8(L) 22.0 - 32.0 mmol/L [facility] ([place]) Anion gap 21(H) 2 - 15 mmol/L [facility] ([place]) BUN 12 6 - 25 mg/dL [facility] ([place]) Creatinine 0.84 0.60 - 1.10 mg/dL [facility] ([place]) Glucose 150 70 - 199 mg/dL [facility] ([place]) Comment: Interpretive Data Fasting glucose >/= 126 [...] interpretive data was last revised 2022 Calcium 10.1 8.5 - 10.3 mg/dL [facility] ([place]) Bilirubin, total 0.4 0.1 - 1.2 mg/dL [facility] ([place]) Protein, pl 7.7 6.5 - 8.5 g/dL [facility] ([place]) Albumin 4.8 3.5 - 5.0 g/dL [facility] ([place]) Alk phos 121 40 - 130 Units/L [facility] ([place]) ALT 15 7 - 45 Units/L [facility] ([place]) AST 24 10 - 45 Units/L [facility] ([place]) Blood Venous blood specimen / Unknown 04/19/2025 12:50 PM CDT 04/19/2025 12:59 PM CDT us Julio Cesar Quick DO LAB BLOOD ORDERABLES Final Result [facility] ([place]) [address] [place] [address] * ECG 12 lead (04/19/2025 12:03 PM CDT) 04/19/2025 12:0 3 PM CDT Narrative [facility] - 04/19/2025 8:19 PM CDT Vent Rate: 73 bpm RR Interval: 821 msec IN Interval: 150 msec QRS Duration: 82 msec QT Interval: 394 msec QTC Interval: 419 msec P-R-T [place]: 45 - 67 - 51 degrees IMPRESSION: SINUS RHYTHM WITH SINUS ARRHYTHMIA NORMAL ECG NO ACUTE CHANGES COMPARED TO 04/17/[address]: [address] Mohamud Mitchell M.D. us Julio Cesar Quick DO ECG ORDERABLES Final Result [facility] * CT Abdomen Pelvis W Contrast (04/17/2025 9:47 PM CDT) Anatomical Region Laterality Modality Body N/A Computed Tomogra phy 04/17/2025 9:42 PM CDT Impressions 04/18/2025 8:46 AM CDT 1. Mild diffuse colonic wall thickening which is unchanged from prior likely related to underdistention. A mild diffuse colitis is considered less likely. 2. Otherwise no acute intra-abdominal finding to explain abdominal pain. 3. Atherosclerosis of the abdominal aorta and its branches which is advanced for patient age. A preliminary teleradiology report was provided by [facility]. Dictated by: Jose Elder M.D. The radiology attending physician has personally reviewed this study, and had reviewed and/or edited this written report and agrees with it. Electronically signed by: Elder Burris M.D. Narrative 04/18/2025 8:46 AM CDT EXAMINATION: Computed tomography of the abdomen and pelvis with intravenous contrast HISTORY: Abdominal pain, acute, nonlocalized TECHNIQUE: Transaxial computed tomographic images of the abdomen and pelvis were obtained with intravenous contrast according to the standard protocol after the uneventful administration of 68 mL Opti-Ray 350 intravenous contrast. COMPARISON: 03/30/2025 FINDINGS: Centrilobular emphysema. Mild bibasilar atelectasis. Calcified left pulmonary nodule represent a sequela of old granulomatous disease. There is left atrial enlargement. There is a tiny hiatal hernia. No pleural effusion. No suspicious hepatic lesion. Cholecystectomy with mild biliary reservoir effect. Normal pancreas, spleen, and adrenal glands. The kidneys enhance symmetrically without hydronephrosis. Normal urinary bladder. The uterus is anteverted with an unchanged likely calcified subendometrial fibroid projecting over the endometrial lumen. No adnexal mass. No evidence of bowel obstruction. The colon is nondistended and mildly thick-walled, unchanged from prior examinations. Normal appendix. Normal stomach and duodenum. No abdominal pelvic lymphadenopathy. Trace ascites. No pneumoperitoneum. Normal caliber abdominal aorta with moderate calcific and noncalcific atherosclerosis. There is mild stenosis of the bilateral common and proximal external iliac arteries. No suspicious osseous lesion. Procedure Note Elder Burris MD - 04/18/2025 EXAMINATION: Computed tomography of the abdomen and pelvis with intravenous contrast HISTORY: Abdominal pain, acute, nonlocalized TECHNIQUE: Transaxial computed tomographic images of the abdomen and pelvis were obtained with intravenous contrast according to the standard protocol after the uneventful administration of 68 mL Opti-Ray 350 intravenous contrast. COMPARISON: 03/30/2025 FINDINGS: Centrilobular emphysema. Mild bibasilar atelectasis. Calcified left pulmonary nodule represent a sequela of old granulomatous disease. There is left atrial enlargement. There is a tiny hiatal hernia. No pleural effusion. No suspicious hepatic lesion. Cholecystectomy with mild biliary reservoir effect. Normal pancreas, spleen, and adrenal glands. The kidneys enhance symmetrically without hydronephrosis. Normal urinary bladder. The uterus is anteverted with an unchanged likely calcified subendometrial fibroid projecting over the endometrial lumen. No adnexal mass. No evidence of bowel obstruction. The colon is nondistended and mildly thick-walled, unchanged from prior examinations. Normal appendix. Normal stomach and duodenum. No abdominal pelvic lymphadenopathy. Trace ascites. No pneumoperitoneum. Normal caliber abdominal aorta with moderate calcific and noncalcific atherosclerosis. There is mild stenosis of the bilateral common and proximal external iliac arteries. No suspicious osseous lesion. IMPRESSION: 1. Mild diffuse colonic wall thickening which is unchanged from prior likely related to underdistention. A mild diffuse colitis is considered less likely. 2. Otherwise no acute intra-abdominal finding to explain abdominal pain. 3. Atherosclerosis of the abdominal aorta and its branches which is advanced for patient age. A preliminary teleradiology report was provided by [facility]. Dictated by: Jose Elder M.D. The radiology attending physician has personally reviewed this study, and had reviewed and/or edited this written report and agrees with it. Electronically signed by: Elder Burris M.D. Clay Coyle MD IMG CT PROCEDURES Final Result * POCT hCG, urine (04/17/2025 8:40 PM CDT) [facility] HCG, ur, POC Negative Negative Lot Number [id number] QC Backgroud Clear Acceptable QC Control Line Acceptable Urine 04/17/2025 8:40 PM CDT Clay Coyle MD POINT OF CARE TEST ORDSoco CARDOSO Final Result * Troponin T high-sensitivity series (baseline, 2hr, 4hr, 6hr) (04/17/2025 8:34 PM CDT) [facility] Trop T hs 6 <=14 ng/L Comment: Interpretive Data For further hscTnT resources including the diagnostic algorithm and an aid in interpretation, copy and paste this link: [email or web address] Current Interpretive Data last revised 2020 Blood 04/17/2025 8:34 PM CDT 04/17/2025 8:37 PM CDT Clay Coyle MD LAB BLOOD ORDERABLES Fi nal Result [facility] ([place]) [address] [facility] Department [place] [address] * (ABNORMAL) Lactate (04/17/2025 8:34 PM CDT) Lactate 3.5(H) 0.7 - 2.0 mmol/L Blood 04/17/2025 8:34 PM CDT 04/17/2025 8:37 PM CDT Clay Coyle MD LAB BLOOD ORDERABLES Fi nal Result Performing Organization Address City/[facility]/ZIP Co de Phone Number [facility] ([place]) [address] [place] [address] Department [place] [address] * eGFR (04/17/2025 8:34 PM CDT) eGFR >90 >=60 mL/min/1. 73 [...] interpretive data was last reviewed 2021. Blood 04/17/2025 8:34 PM CDT 04/17/2025 8:37 PM CDT us Farhana Lavinia Kwan NP LAB BLOOD ORDERABLES Final Result [facility] ([place]) [address] [facility] [place] [address] * (ABNORMAL) Differential, auto (04/17/2025 8:34 PM CDT) Neutrophil abs 7.41(H) 1.50 - 6.50 K/cumm Imm gran abs 0.04 0.00 - 0.10 K/cumm [facility] ([place]) Lymphocyte abs 3.71(H) 0.80 - 3.30 K/cumm [facility] ([place]) Monocyte abs 0.99(H) 0.20 - 0.80 K/cumm [facility] ([place]) Eosinophil abs 0.06 0.00 - 0.50 K/cumm [facility] ([place]) Basophil abs 0.06 0.00 - 0.10 K/cumm [facility] ([place]) Neutrophil pct 60.4 % [facility] ([place]) Comment: Interpretive Data Percent cell count reference ranges are not reported, since discordance with absolute values may lead to misinterpretation of CBC data. Current Interpretive Data was last revised on 2017. Imm gran pct 0.3 % [facility] ([place]) Comment: Interpretive Data Percent cell count reference ranges are not reported, since discordance with absolute values may lead to misinterpretation of CBC data. Current Interpretive Data was last revised on 2017. Lymphocyte pct 30.2 % [facility] Comment: Interpretive Data Percent cell count reference ranges are not reported, since discordance with absolute values may lead to misinterpretation of CBC data. Current Interpretive Data was last revised on 2017. Monocyte pct 8.1 % [facility] ([place]) Comment: Interpretive Data Percent cell count reference ranges are not reported, since discordance with absolute values may lead to misinterpretation of CBC data. Current Interpretive Data was last revised on 2017. Eosinophil pct 0.5 % [facility]) Comment: Interpretive Data Percent cell count reference ranges are not reported, since discordance with absolute values may lead to misinterpretation of CBC data. Current Interpretive Data was last revised on 2017. Basophil pct 0.5 % [facility] ([place]) Comment: Interpretive Data Percent cell count reference ranges are not reported, since discordance with absolute values may lead to misinterpretation of CBC data. Current Interpretive Data was last revised on 2017. Blood 04/17/2025 8:34 PM CDT 04/17/2025 8:37 PM CDT Farhana Kwan NP LAB BLOOD ORDERABLES Final Result [facility] [address] Department [place] [address] * (ABNORMAL) Urinalysis reflex to microscopic and culture Urine (04/17/2025 8:34 PM CDT) Color, ur Yellow Yellow Clarity, ur Cloudy(A) Clear [facility] ([place]) Specific gravity, ur 1.032(H) 1.003 - 1.030 [facility] ([place]) pH, urine 6.5 [facility] ([place]) Comment: Interpretive Data U rine pH is affected by diet, medications, systemic acid-base disturbances, and renal tubular function. pH may affect urinary stone formation. For example, urine pH below 6.0 may help reduce the tendency for calcium phosphate stones and pH greater than 6.0 may reduce the tendency for uric acid stone formation. Source: [facility] [employer] Current Interpretive Data was last revised on 2017 Protein, ur ql 1+(A) Negative [facility] ([place]) Glucose, ur ql Negative Negative [facility] Ketones, ur 1+(A) Negative [facility] ([place]) Bilirubin, ur Negative Negative [facility] ([place]) Blood, ur Trace(A) Negative [facility] ([place]) Urobilinogen, ur 2.0(A) <2.0 mg/dL [facility] ([place]) Nitrite, ur Negative Negative [facility] ([place]) Leukocyte esterase, ur Negative Negative [facility] ([place]) UA reflex comment Reflex to microscopic UA will be performed. [facility]) Urine 04/17/2025 8:34 PM CDT 04/17/2025 8:43 PM CDT Clay Coyle MD LAB MICROBIOLOGY - GENE RAL ORDERABLES Final Result [facility]) [address] Department [place] [address] * (ABNORMAL) CBC with auto differential (04/17/2025 8:34 PM CDT) WBC 12.27(H) 3.80 - 9.90 K/cumm Hgb 12.8 11.9 - 15.5 g/dL [facility]) Hct 38.1 35.6 - 45.5 % [facility]) Plt 378 150 - 400 K/cumm [facility]) MPV 10.6 9.1 - 12.3 fL [facility]) RBC 4.71 3.90 - 5.20 M/cumm [facility]) MCV 80.9(L) 81.3 - 96.4 fL [facility]) MCH 27.2 27.1 - 33.3 pg [facility]) MCHC 33.6 32.3 - 35.7 g/dL [facility]) RDW CV 14.6 11.1 - 14.9 % [facility]) RDW SD 42.6 35.7 - 48.1 fL [facility] ([place]) NRBC abs 0.00 0.00 - 0.01 K/cumm [facility]) Blood Venous blood specimen / Unknown 04/17/2025 8:34 PM CDT 04/17/2025 8:37 PM CDT Clay Coyle MD LAB BLOOD ORDERABLES Fi nal Result Performing Organization Address [facility] Co de Phone Number [facility]) [address] [place] [address] Department [place] [address] * (ABNORMAL) Urinalysis, microscopic only (04/17/2025 8:34 PM CDT) WBC, ur 0-5 0 - 5 /HPF RBC, ur 0-2 0 - 2 /HPF [facility]) Bacteria, ur Trace(A) [facility] [facility] ([place]) Mucous, ur Present(A) [facility] ([place]) Culture Reflex Comment Reflex conditions for urine culture (WBC >10) not met. [facility]) Urine 04/17/2025 8:34 PM CDT 04/17/2025 8:43 PM CDT Clay Coyle MD LAB URINE ORDERABLES Fi nal Result Performing Organization Address [facility] Co de Phone Number [facility]) [address] [place] [address] Department [place] [address] * CRP (acute phase) (04/17/2025 8:34 PM CDT) CRP 3.8 <=10.0 mg/L Blood 04/17/2025 8:34 PM CDT 04/17/2025 8:37 PM CDT Clay Coyle MD LAB BLOOD ORDERABLES Fi nal Result [facility] [address] [facility] Department [place] [address] * Lipase (04/17/2025 8:34 PM CDT) [facility] Lipase 24 10 - 99 Units/L Blood Venous blood specimen / Unknown 04/17/2025 8:34 PM CDT 04/17/2025 8:37 PM CDT Clay Coyle MD LAB BLOOD ORDERABLES Fi nal Result Performing Organization Address City/[facility] Co de Phone Number [facility]) [address] [facility] Department of Laboratories [place], [place] [id number] * (ABNORMAL) Comprehensive metabolic panel (04/17/2025 8:34 PM CDT) [facility] Sodium 140 135 - 145 mmol/L Potassium, pl 3.6 3.3 - 4.9 mmol/L [facility] ([place]) Chloride 101 97 - 110 mmol/L [facility] ([place]) CO2 18.8(L) 22.0 - 32.0 mmol/L [facility]) Anion gap 20(H) 2 - 15 mmol/L [facility] ([place]) BUN 12 6 - 25 mg/dL [facility] ([place]) Creatinine 0.80 0.60 - 1.10 mg/dL [facility] ([place]) Glucose 156 70 - 199 mg/dL [facility] ([place]) Comment: Interpretive Data Fasting glucose >/= 126 [...] classification and Diagnosis of Diabetes Diabetes Care 2022; 46: S19-S40. Current interpretive data was last revised 2022 Calcium 10.2 8.5 - 10.3 mg/dL [facility] ([place]) Bilirubin, total 0.4 0.1 - 1.2 mg/dL [facility] ([place]) Protein, pl 7.8 6.5 - 8.5 g/dL [facility] ([place]) Albumin 4.7 3.5 - 5.0 g/dL [facility] ([place]) Alk phos 130 40 - 130 Units/L [facility]) ALT 15 7 - 45 Units/L [facility] ([place]) AST 22 10 - 45 Units/L [facility] ([place]) Blood Venous blood specimen / Unknown 04/17/2025 8:34 PM CDT 04/17/2025 8:37 PM CDT Clay Coyle MD LAB BLOOD ORDERABLES Fi nal Result [facility] ([place]) [address] Department [place] [address] * ECG 12 lead (04/17/2025 8:04 PM CDT) 04/17/2025 8:04 PM CDT Narrative [facility] - 04/17/2025 8:19 PM CDT Vent Rate: 85 bpm RR Interval: 704 msec IN Interval: 145 msec QRS Duration: 81 msec QT Interval: 357 msec QTC Interval: 399 msec P-R-T Willards: 64 - 69 - 41 degrees IMPRESSION: SINUS RHYTHM WITH SINUS ARRHYTHMIA POSSIBLE LEFT ATRIAL ENLARGEMENT BORDERLINE ECG No significant changes seen compared to 03/30/[address]: Dr[address] Mohamud Mitchell M.D. Clay Coyle MD ECG ORDERABLES Final R esult Performing Organization Address City/[facility]/ZIP Co de Phone Number [facility] * NM Gastric Emptying Study (04/16/2025 4:31 PM CDT) Anatomical Region Laterality Modality Body N/A Nuclear Medicine 04/17/2025 5:57 AM CDT Impressions 04/17/2025 5:57 AM CDT 1. Abnormally delayed gastric emptying noted at 4 hour time interval.. Electronically signed by: Richard Kennedy M.D. [facility] 04/17/2025 5:57 AM CDT Gastric emptying scintigraphy HISTORY: Vomiting. Early satiety.. FINDINGS: The patient ingested a test meal containing 1 mCi technetium 99 sulfur colloid. Anterior and posterior images of the abdomen were obtained immediately and following 1, 2, and 4 hour delays. The decay corrected geometric mean of gastric activity was determined and plotted against a normal database. Gastric emptying is abnormally delayed at 4 hour time interval. At one hour, 67% of the test meal remains in the stomach with a normal range of 37% through 90% and a mean of 64%. At 2 hours, 51% remains with a normal range of 30% through 60% and a mean of 45%. At 4 hours, 34% remains with a normal range of 0% through 10% and a mean of 5%. Procedure Note Richard Kennedy MD - 04/17/2025 Gastric emptying scintigraphy HISTORY: Vomiting. Early satiety.. FINDINGS: The patient ingested a test meal containing 1 mCi technetium 99 sulfur colloid. Anterior and posterior images of the abdomen were obtained immediately and following 1, 2, and 4 hour delays. The decay corrected geometric mean of gastric activity was determined and plotted against a normal database. Gastric emptying is abnormally delayed at 4 hour time interval. At one hour, 67% of the test meal remains in the stomach with a normal range of 37% through 90% and a mean of 64%. At 2 hours, 51% remains with a normal range of 30% through 60% and a mean of 45%. At 4 hours, 34% remains with a normal range of 0% through 10% and a mean of 5%. IMPRESSION: 1. Abnormally delayed gastric emptying noted at 4 hour time interval.. Electronically signed by: Richard Kennedy M.D. us Huemra Hung [employer]ER IMG NM PROCEDURES Final Resu lt * C. difficile testing Stool (04/12/2025 6:15 PM CDT) Pathologist [facility] Result Negative Negative Toxin Result Negative Negative [facility] ([place]) C. diff result Negative, free toxin Negative, free toxin [facility] ([place]) C. diff interp Negative for toxigenic Clostridioides (Clostridium) difficile. Analysis was performed using a glutamate dehydrogenase antigen detection assay combined with a C. difficile toxin detection assay. [facility] ([place]) Stool 04/12/2025 6:15 PM CDT 04/12/2025 6:36 PM CDT Humera Hung NP LAB MICROBIOLOGY - GENERAL O RDERABLES Final Result Performing Organization Address [facility]/ZIP Co de Phone Number [facility] ([place]) [address] Department [place] [address] * Allergen Alpha-gal (food) IgE (04/06/2025 1:59 PM CDT) [facility] Alpha-gal IgE <0.10 0.00 - 0.34 kUnits/L Comment:Testing performed by : [facility], [address] [place]., [address] Blood 04/06/2025 1:59 PM CDT 04/06/2025 7:37 PM CDT Humera Hung SH[employer] PR[employer]ER LAB BLOOD ORDERABLES Final R esult [facility] ([place]) [address] Department of [employer] [place], [place] [id number] * Celiac reflex panel (04/06/2025 1:59 PM CDT) [facility] IgA 108 61 - 356 mg/dL [facility] Celiac disease interpretation See Footnote [facility] ([place]) Comment: See Comment: Negative serology. Celiac disease unlikely. However, approximately 10% of patients with celiac disease are seronegative. Also, patients who are already adhering to a gluten-free diet may be seronegative. If celiac disease is highly clinically suspected, consider HLA-DQ typing. Test Performed by: [place] [address] Epic Trainer: Demi Infante Ph.D.; CLIA# [id number] Blood 04/06/2025 1:59 PM CDT 04/06/2025 3:52 PM CDT Humera Hung SH[employer]ER LAB BLOOD ORDERABLES Final R esult Performing Organization Address City/[facility]/ZIP Co de Phone Number [facility] ([place]) [address] [facility] Department [place] [address] [facility] * Tissue transglutaminase IgA (TGG-IgA Ab) (04/06/2025 1:59 PM CDT) TTG ab, IgA <1.2 <4.0 (Negative) units/mL Comment: Test Performed by: [place] [address] Epic Trainer: Demi Infante Ph.D.; CLIA# [id number] Interpretive data Negative: <15 units/mL Positive: > or equal to 15 units/mL Current interpretive data was last revised on 2016. Testing performed by: [facility], [address] [place]., [address] Blood 04/06/2025 1:59 PM CDT 04/06/2025 3:52 PM CDT Humera Hung SH[employer] PRESSER LAB BLOOD ORDERABLES Final R esult [facility] ([place]) [address] Department [place] [address] * Troponin T high-sensitivity 2-hour (03/30/2025 3:54 PM CDT) Trop T hs 6 <=14 ng/L Comment: Interpretive Data For further hscTnT resources including the diagnostic algorithm and an aid in interpretation, copy and paste this link: https://nrl.testcatalog.org/show/hsTrop Current Interpretive Data last revised 2020 Trop T hs delta 0 ng/L [facility] ([place]) Trop T hs interp Insignificant [facility] ([place]) Blood 03/30/2025 3:54 PM CDT 03/30/2025 4:00 PM CDT us Lorraine Wilkins DO LAB BLOOD ORDERABLES Final Result [facility] ([place]) [address] Department [place] [address] * CT Abdomen Pelvis W Contrast (03/30/2025 2:53 PM CDT) Anatomical Region Laterality Modality Body N/A Computed Tomogra phy 03/30/2025 3:02 PM CDT Impressions 03/30/2025 3:02 PM CDT 1. Stable appearance of calcification projecting on to the endometrial cavity at the fundus stable over multiple prior studies dating back to 12/16/2024. Findings may represent a calcified submucosal fibroid. If clinically warranted this may be further characterized with a nonemergent outpatient pelvic ultrasound. 2. No acute findings in the abdomen or pelvis. 3. Stable small to moderate hiatal hernia. Electronically signed by: Betty Lara M.D. Narrative 03/30/2025 3:02 PM CDT EXAMINATION: Computed tomography of the abdomen and pelvis with intravenous contrast HISTORY: Abdominal pain acute nonlocalized TECHNIQUE: Transaxial computed tomographic images of the abdomen and pelvis were obtained with intravenous contrast according to the standard protocol after the uneventful administration of 69 mL Opti-Ray 350 intravenous contrast. COMPARISON: 02/13/2025 FINDINGS: Trace right pleural effusion increased from prior study. Adjacent atelectatic changes. Stable small hiatal hernia. No suspicious focal hepatic lesions. Cholecystectomy clips in the gallbladder fossa. Normal appearance of the spleen, pancreas and adrenal glands. Both kidneys enhance symmetrically. There is no hydronephrosis of either kidney. Unremarkable appearance of the ureters and bladder. Stable calcification projecting on to the endometrial cavity at the fundus. Unremarkable appearance of the adnexa. Several pelvic phleboliths. Small hiatal hernia. Unremarkable appearance of the stomach. Unremarkable appearance of the duodenum. Colonic diverticula without diverticulitis. Moderate stool burden in the descending colon. Normal right lower quadrant appendix. Diffuse submucosal fat deposition throughout the colon in keeping with chronic inflammatory sequela not significantly changed from 2024. No bowel obstruction. Calcified and noncalcified plaques along the abdominal aorta and proximal pelvic vasculature. No pathologic lymphadenopathy by imaging size criteria. No free intraperitoneal air. No loculated fluid collections. Multilevel degenerative changes of the spine most marked at L5-S1. No suspicious skeletal lesions. Procedure Note Betty Lara MD - 03/30/2025 EXAMINATION: Computed tomography of the abdomen and pelvis with intravenous contrast HISTORY: Abdominal pain acute nonlocalized TECHNIQUE: Transaxial computed tomographic images of the abdomen and pelvis were obtained with intravenous contrast according to the standard protocol after the uneventful administration of 69 mL Opti-Ray 350 intravenous contrast. COMPARISON: 02/13/2025 FINDINGS: Trace right pleural effusion increased from prior study. Adjacent atelectatic changes. Stable small hiatal hernia. No suspicious focal hepatic lesions. Cholecystectomy clips in the gallbladder fossa. Normal appearance of the spleen, pancreas and adrenal glands. Both kidneys enhance symmetrically. There is no hydronephrosis of either kidney. Unremarkable appearance of the ureters and bladder. Stable calcification projecting on to the endometrial cavity at the fundus. Unremarkable appearance of the adnexa. Several pelvic phleboliths. Small hiatal hernia. Unremarkable appearance of the stomach. Unremarkable appearance of the duodenum. Colonic diverticula without diverticulitis. Moderate stool burden in the descending colon. Normal right lower quadrant appendix. Diffuse submucosal fat deposition throughout the colon in keeping with chronic inflammatory sequela not significantly changed from 2024. No bowel obstruction. Calcified and noncalcified plaques along the abdominal aorta and proximal pelvic vasculature. No pathologic lymphadenopathy by imaging size criteria. No free intraperitoneal air. No loculated fluid collections. Multilevel degenerative changes of the spine most marked at L5-S1. No suspicious skeletal lesions. IMPRESSION: 1. Stable appearance of calcification projecting on to the endometrial cavity at the fundus stable over multiple prior studies dating back to 12/16/2024. Findings may represent a calcified submucosal fibroid. If clinically warranted this may be further characterized with a nonemergent outpatient pelvic ultrasound. 2. No acute findings in the abdomen or pelvis. 3. Stable small to moderate hiatal hernia. Electronically signed by: Betty Lara M.D. Trinity Jefferson NP IMG CT PROCEDURES Final Result * (ABNORMAL) Urinalysis reflex to microscopic and culture Urine (03/30/2025 2:30 PM CDT) Color, ur Yellow Yellow Clarity, ur Clear Clear [facility] Specific gravity, ur 1.019 1.003 - 1.030 [facility] ([place]) pH, urine 8.5 [facility] ([place]) Comment: Interpretive Data U rine pH is affected by diet, medications, systemic acid-base disturbances, and renal tubular function. pH may affect urinary stone formation. For example, urine pH below 6.0 may help reduce the tendency for calcium phosphate stones and pH greater than 6.0 may reduce the tendency for uric acid stone formation. Source: [facility] [employer] Current Interpretive Data was last revised on 2017 Protein, ur ql 1+(A) Negative [facility] ([place]) Glucose, ur ql Negative Negative [facility]) Ketones, ur Negative Negative [facility] Bilirubin, ur Negative Negative [facility] Blood, ur Negative Negative [facility] ([place]) Urobilinogen, ur <2.0 <2.0 mg/dL [facility] ([place]) Nitrite, ur Negative Negative [facility] ([place]) Leukocyte esterase, ur Negative Negative [facility] ([place]) UA reflex comment Reflex to microscopic UA will be performed. [facility] ([place]) Urine 03/30/2025 2:30 PM CDT 03/30/2025 2:33 PM CDT Lorraine Wilkins DO LAB MICROBIOLOGY - GENERAL ORDERABLES Final Result Performing Organization Address [facility] Co de Phone Number [facility]) [address] [place] [address] Department of Laboratories [place], [place] [phone] * (ABNORMAL) Urinalysis, microscopic only (03/30/2025 2:30 PM CDT) [facility] WBC, ur 0-5 0 - 5 /HPF RBC, ur 0-2 0 - 2 /HPF [facility]) Epithelial cells, squamous, ur 1-5 0 - 5 /HPF [facility]) Bacteria, ur Trace(A) [facility] ([place]) Amorphous crystals, ur 1+(A) [facility] ([place]) Culture Reflex Comment Reflex conditions for urine culture (WBC >10) not met. [facility] ([place]) Urine 03/30/2025 2:30 PM CDT 03/30/2025 2:33 PM CDT Lorraine Wilkins DO LAB URINE ORDERABLES Final Result Performing Organization Address [facility] de Phone Number [facility]) [address] [place] [address] Department [place] [address] * POCT hCG, urine (03/30/2025 2:28 PM CDT) [facility] HCG, ur, POC Negative Negative Lot Number [id number] QC Backgroud Clear Acceptable QC Control Line Acceptable Urine 03/30/2025 2:28 PM CDT Lorraine Wilkins DO POINT OF CARE TEST ORDERAB LES Final Result * Troponin T high-sensitivity series (baseline, 2hr, 4hr, 6hr) (03/30/2025 1:45 PM CDT) [facility] Trop T hs <6 <=14 ng/L Comment: Interpretive Data For further hscTnT resources including the diagnostic algorithm and an aid in interpretation, copy and paste this link: https://nrl.testcatalog.org/show/[email or web address] Current Interpretive Data last revised 2020 Blood 03/30/2025 1:45 PM CDT 03/30/2025 1:47 PM CDT us Lorraine Wilkins DO LAB BLOOD ORDERABLES Final Result [facility] ([place]) [address] Department of Laboratories [place] [address] * eGFR (03/30/2025 1:45 PM CDT) eGFR >90 >=60 mL/min/1. 73 [...] interpretive data was last reviewed 2021. Blood 03/30/2025 1:45 PM CDT 03/30/2025 1:47 PM CDT us Lorraine Darrionkathifederico DO LAB BLOOD ORDERABLES Final Result [facility] ([place]) [address] [place] [address] * (ABNORMAL) Differential, auto (03/30/2025 1:45 PM CDT) Neutrophil abs 8.29(H) 1.50 - 6.50 K/cumm Imm gran abs 0.03 0.00 - 0.10 K/cumm [facility]) Lymphocyte abs 1.47 0.80 - 3.30 K/cumm [facility] ([place]) Monocyte abs 0.44 0.20 - 0.80 K/cumm [facility] ([place]) Eosinophil abs 0.03 0.00 - 0.50 K/cumm [facility] ([place]) Basophil abs 0.04 0.00 - 0.10 K/cumm [facility] ([place]) Neutrophil pct 80.4 % [facility]) Comment: Interpretive Data Percent cell count reference ranges are not reported, since discordance with absolute values may lead to misinterpretation of CBC data. Current Interpretive Data was last revised on 2017. Imm gran pct 0.3 % [facility] ([place]) Comment: Interpretive Data Percent cell count reference ranges are not reported, since discordance with absolute values may lead to misinterpretation of CBC data. Current Interpretive Data was last revised on 2017. Lymphocyte pct 14.3 % [facility]) Comment: Interpretive Data Percent cell count reference ranges are not reported, since discordance with absolute values may lead to misinterpretation of CBC data. Current Interpretive Data was last revised on 2017. Monocyte pct 4.3 % [facility]) Comment: Interpretive Data Percent cell count reference ranges are not reported, since discordance with absolute values may lead to misinterpretation of CBC data. Current Interpretive Data was last revised on 2017. Eosinophil pct 0.3 % [facility]) Comment: Interpretive Data Percent cell count reference ranges are not reported, since discordance with absolute values may lead to misinterpretation of CBC data. Current Interpretive Data was last revised on 2017. Basophil pct 0.4 % [facility] Comment: Interpretive Data Percent cell count reference ranges are not reported, since discordance with absolute values may lead to misinterpretation of CBC data. Current Interpretive Data was last revised on 2017. Blood 03/30/2025 1:45 PM CDT 03/30/2025 1:47 PM CDT us Lorraine Wilkins DO LAB BLOOD ORDERABLES Final Result [facility] ([place]) [address] Department [place] [address] * (ABNORMAL) CBC with auto differential (03/30/2025 1:45 PM CDT) WBC 10.30(H) 3.80 - 9.90 K/cumm Hgb 12.1 11.9 - 15.5 g/dL [facility]) Hct 36.2 35.6 - 45.5 % [facility] ([place]) Plt 328 150 - 400 K/cumm [facility] ([place]) MPV 10.9 9.1 - 12.3 fL [facility] ([place]) RBC 4.46 3.90 - 5.20 M/cumm [facility] ([place]) MCV 81.2(L) 81.3 - 96.4 fL [facility] ([place]) MCH 27.1 27.1 - 33.3 pg [facility] ([place]) MCHC 33.4 32.3 - 35.7 g/dL [facility] ([place]) RDW CV 14.7 11.1 - 14.9 % [facility] ([place]) RDW SD 43.3 35.7 - 48.1 fL [facility] ([place]) NRBC abs 0.00 0.00 - 0.01 K/cumm [facility]) Blood Venous blood specimen / Unknown 03/30/2025 1:45 PM CDT 03/30/2025 1:47 PM CDT Lorraine Wilkins LAB BLOOD ORDERABLES Final Result [facility] [address] [facility] Department of Laboratories [place], [place] [id number] * Lipase (03/30/2025 1:45 PM CDT) Pathologist [facility] Lipase 23 10 - 99 Units/L Blood Venous blood specimen / Unknown 03/30/2025 1:45 PM CDT 03/30/2025 1:47 PM CDT Lorraine Wilkins LAB BLOOD ORDERABLES Final Result Performing Organization Address [facility]/ZIP Co de Phone Number [facility] [address] [facility] Department [place] [address] * (ABNORMAL) Comprehensive metabolic panel (03/30/2025 1:45 PM CDT) [facility] Sodium 137 135 - 145 mmol/L Potassium, pl 3.9 3.3 - 4.9 mmol/L [facility] ([place]) Chloride 103 97 - 110 mmol/L [facility] ([place]) CO2 18.0(L) 22.0 - 32.0 mmol/L [facility]) Anion gap 16(H) 2 - 15 mmol/L [facility] ([place]) BUN 9 6 - 25 mg/dL [facility] ([place]) Creatinine 0.78 0.60 - 1.10 mg/dL [facility] ([place]) Glucose 138 70 - 199 mg/dL [facility] ([place]) Comment: Interpretive Data Fasting glucose >/= 126 [...] interpretive data was last revised 2022 Calcium 9.7 8.5 - 10.3 mg/dL [facility] ([place]) Bilirubin, total 0.2 0.1 - 1.2 mg/dL [facility] ([place]) Protein, pl 7.1 6.5 - 8.5 g/dL [facility] ([place]) Albumin 4.2 3.5 - 5.0 g/dL [facility] ([place]) Alk phos 121 40 - 130 Units/L [facility]) ALT 14 7 - 45 Units/L [facility] ([place]) AST 22 10 - 45 Units/L [facility] ([place]) Blood 03/30/2025 1:45 PM CDT 03/30/2025 1:47 PM CDT Lorraine Wilkins DO LAB BLOOD ORDERABLES Final Result [facility] ([place]) [address] Department [place] [address] * ECG 12 lead (03/30/2025 1:38 PM CDT) 03/30/2025 1:38 PM CDT Narrative [facility] - 04/01/2025 3:41 PM CDT Vent Rate: 68 bpm RR Interval: 877 msec IN Interval: 154 msec QRS Duration: 86 msec QT Interval: 423 msec QTC Interval: 440 msec P-R-T Willards: 35 - 66 - 40 degrees IMPRESSION: SINUS RHYTHM WITH SINUS ARRHYTHMIA NORMAL ECG NO SIGNIFICANT CHANGES COMPARED TO PREVIOUS EKG Electronically Signed By: Dr. Shona Savage M.D. Lorraine Wiklins DO ECG ORDERABLES Final Resu lt [facility] * Diagnostic Mammogram Bilateral W Wally (12/05/2024 [...] lesion, abnormal acoustical shadowing, or cyst. Bisi Reyes NP IMG MAMMO PROCEDURES Fin al Result from Last 3 Months or Most Recently Relevant to Health Maintenance Insurance [facility] [place] Advance Directives For more information, please contact: [phone] * Full Code (Latest Code Status on File) Date Activated Date Inactivated Comments 05/17/2025 12:04 PM 05/17/2025 5:39 PM Care Teams Deli Cutter Slicer Relationship Specialty Start Date End Date Bisi Reyes NP [address] [place] [address] PCP - General Family Medicine 10/26/24
--- OUTSIDE RECORDS SUMMARY | 2025-05-22 09:49 | XMS_ITS | Clinical Summary ---
Author Organization [facility] Address [address] [place] [address] Phone Care Team Providers Care Emt I/85 Name Role Phone Bisi Rutledge Primary Care Provider [phone] Allergies Active Allergy Reactions Criticality Noted Date [...] night if needed for sleep. 30 tablet Active Active Problems Problem Noted Date Diagnosed Date Intractable nausea and vomiting 12/29/2024 Resolved Problems Problem Noted Date Diagnosed Date Resolved Date Suicidal ideation 01/24/2025 01/25/2025 Social History Tobacco Use Types Packs/Day Years [...] from your doctor or pharmacy? Never 12/29/2024 [facility] Utilities Answer Date Recorded In the past 12 months has e [employer], gas, oil, or water [employer] threatened to shut off services in your [...] medical care, and heating? Very hard 01/25/2025 [facility] of Occupat ional Health - Occupational Stress Questionnaire Answer Date Recorded [...] any time in the past 12 m [facility], were you homeless or living in a assisted (including now)? Yes 01/25/2025 Comments No Sex [...] COVID-19 Vaccine (1 - 2023-2 5 season) 2025 Influenza Vaccine (#1) 2025 Mammogram 12/05/2025 12/05/2024 [...] on patient's age to complete this topic Insurance [facility] MEDICAID REPLACEMENT Advance Directives For more information, please contact: [phone] (7:30 AM - 5PM [facility], 7 days a week) * Full Code (Latest Code Status on File) Date Activated Date Inactivated Comments 01/24/2025 9:55 PM 01/25/2025 7:44 PM * Full Code Date Activated Date Inactivated Comments 12/29/2024 10:33 AM 12/31/2024 1:44 PM Care Teams Emt I/85 Relationship Specialty Start Date End Date Bisi Rutledge [address] [place] [address] [place] [address] PCP - General 12/29/24
--- OUTSIDE RECORDS SUMMARY | 2025-05-22 09:49 | XMS_ITS | Encounter Summary ---
Author Organization [facility] Healthcare Address [address] [place] [address] Care Team Providers Care Tape Fastener Machine Operator Name Role Phone Bisi Rutledge QUALITY CONTROL TECH Primary Care Provider + Encounter Details Date Type Department Care Team ([facility] st Contact Info) Description 05/21/2025 Results Follow-Up [facility] Medical Office [address] [facility] [place] [address] Eugene Francis, DO [address] [facility] [place] [address] Surgical pathology Social History Tobacco Use Types Packs/Day Years [...] on file 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
--- OUTSIDE RECORDS SUMMARY | 2025-05-22 09:49 | XMS_ITS | Encounter Summary ---
Author Organization 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 I tried to call her back to get more details & had to leave a voicemail. documented in this encounter Plan of Treatment Not on file documented as of this encounter Visit Diagnoses Not on filedocumented in this encounter Care Teams Receptionist Scheduler Relationship Specialty Start Date End Date Bisi Rutledge NP [address] [place] [address] PCP - General Family Medicine 10/26/24 documented as of this encounter
[2025-05-22] MEDS: ONDANSETRON INJ 4 MG/2 ML VIAL IV PUSH (09:50)
[2025-05-22] MEDS: FAMOTIDINE 20 MG/2 ML VIAL IV PUSH (09:50)
--- OUTSIDE RECORDS SUMMARY | 2025-05-22 09:51 | XMS_ITS | Encounter Summary ---
Author Organization [facility] Healthcare Address [address] [place] [address] Care Team Providers Care Drying Machine Operator Package Yarns Name Role Phone Bisi Rutledge WEATHER REPORTER Primary Care Provider + Encounter Details Date Type Department Care Team (Late st Contact Info) Description 04/09/2025 Results Follow-Up [facility] Medical Office [address] [place] [address] Humera Hung NP [address] [address] Allergen Alpha-gal (food) IgE, C. difficile testing Stool, NM Gastric Emptying Study Social History Tobacco Use Types Packs/Day Years [...] making you feel afraid or unsafe? 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 difficile suspected 04/12/2025 04/12/202504/12 7:06 PM CDT documented as of this encounter Care Teams Drying Machine Operator Package Yarns Relationship Specialty Start Date End Date Bisi Rutledge NP [address] [place] [address] PCP - General Family Medicine 10/26/24 documented as of this encounter
[2025-05-22] MEDS: MAGNESIUM SULF 2 GM/WATER 50ML 2 GM/50 ML BAG IVPB (10:04)
[2025-05-22 10:15] VITALS: BP 130/92; PULSE 76; RESP 15; O2SAT 96
[2025-05-22 10:33] LABS: Cannabinoid Screen Urine Positive (Negative)
[2025-05-22 10:37] LABS: Influenza A QL RT-PCR Negative (Negative); Influenza B QL RT-PCR Negative (Negative); RSV RNA, RT-PCR Negative (Negative); SARS-CoV-2 RNA PCR Negative (Negative)
--- OUTSIDE RECORDS SUMMARY | 2025-05-22 10:50 | XMS_ITS | Clinical Summary ---
Author Organization [facility] Address [address] [place] [address] Phone Care Team Providers Care Patent Paralegal Name Role Phone Bisi Rutledge Primary Care Provider [phone] Allergies Active Allergy Reactions Criticality Noted Date [...] from your doctor or pharmacy? Never 12/29/2024 [facility] Utilities Answer Date Recorded In the past 12 months has e [employer], gas, oil, or water [email or web address] threatened to shut off services in your [...] medical care, and heating? Very hard 01/25/2025 [facility] [place] of Occupat ional Health - Occupational Stress [...] any time in the past 12 m [facility], were you homeless or living in a [facility] (including now)? Yes 01/25/2025 Comments No Sex [...] patient's age to complete this topic Insurance [facility] MEDICAID REPLACEMENT Advance Directives For more information, please contact: [phone] (7:30 AM - 5PM [facility], 7 days a week) * Full Code (Latest Code Status on File) Date Activated Date Inactivated Comments 01/24/2025 9:55 PM 01/25/2025 7:44 PM * Full Code Date Activated Date Inactivated Comments 12/29/2024 10:33 AM 12/31/2024 1:44 PM Care Teams Patent Paralegal Relationship Specialty Start Date End Date Bisi Rutledge [address] [place] [address] [place] [address] PCP - General 12/29/24
--- OUTSIDE RECORDS SUMMARY | 2025-05-22 10:50 | XMS_ITS | Encounter Summary ---
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 I tried to call her back to get more details & had to leave a voicemail. documented in this encounter Plan of Treatment Not on file documented as of this encounter Visit Diagnoses Not on filedocumented in this encounter Care Teams Clinical Engineer Relationship Specialty Start Date End Date Bisi Rutledge NP [address] [place] [place] [address] PCP - General Family Medicine 10/26/24 documented as of this encounter
--- OUTSIDE RECORDS SUMMARY | 2025-05-22 10:51 | XMS_ITS | Encounter Summary ---
Author Organization [facility] Healthcare Address [address] [place] [address] Care Team Providers Care Windshield Technician Name Role Phone Bisi Rutledge BLOWN FILM EXTRUSION OPERATOR Primary Care Provider + Encounter Details Date Type Department Care Team (Late st Contact Info) Description 04/09/2025 Results Follow-Up [facility] Medical Office [address] [place] [address] Humera Hung NP [address] [address] Allergen Alpha-gal (food) IgE, C. 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 difficile suspected 04/12/2025 04/12/202504/12 7:06 PM CDT documented as of this encounter Care Teams Windshield Technician Relationship Specialty Start Date End Date Bisi Rutledge NP [address] [address] PCP - General Family Medicine 10/26/24 documented as of this encounter
--- OUTSIDE RECORDS SUMMARY | 2025-05-22 10:51 | XMS_ITS | Clinical Summary ---
Author Organization [facility] Address [address] [place] [address] Care Team Providers Care Account Liaison Hospice Name Role Phone Bisi Reyes SMOG TECHNICIAN Primary Care Provider + Allergies Active Allergy [...] Type Department Care Team Description 05/22/2025 Telephone [facility] Medical Office [address] [place] [phone] Megan Vu LPN Follow-up 05/21/2025 Results Follow-Up [facility] Medical Office [address] [place] [phone] Eugene Francis, DO Surgical pathology 05/17/2025 1:00 PM CDT - 05/17/2025 1:30 PM CDT Surgery [facility] [address] [place] [phone] Eugene Francis, DO ESOPHAGOGASTRODUODENOSCOPY BIOPSY 05/17/2025 12:42 PM CDT Anesthesia Event [facility] [address] [place] [phone] Eugene Francis, DO Vibha Silva CRNA 05/17/2025 11:55 AM CDT - 05/17/2025 1:39 PM CDT Hospital Encounter [facility] [address] [place] [phone] Eugene Francis, DO Nausea and vomiting, unspecified vomiting type; Gastroesophageal reflux disease, unspecified whether esophagitis present Discharge Disposition: Discharge to home or self care 05/15/2025 Telephone [facility] Medical Office [address] [place] [phone] Michaela Escoto LPN 05/04/2025 2:36 PM CDT - 05/04/2025 11:59 PM CDT Hospital Encounter [facility] [address] [place] [phone] Uterine mass Discharge Disposition: Discharge to home or self care 05/04/2025 2:00 PM CDT - 05/04/2025 11:59 PM CDT Hospital Encounter [facility] [address] [place] [phone] Left atrial enlargement Discharge Disposition: Discharge to home or self care 04/20/2025 Orders Only [facility] Medical Office [address] [place] [phone] Eugene Francis DO Chronic nausea (Primary Dx) 04/19/2025 1:34 PM CDT - 04/19/2025 5:24 PM CDT Emergency [facility] Emergency Department [address] [place] [phone] Gastroparesis (Primary Dx); Dehydration Discharge Disposition: Discharge to home or self care 04/17/2025 7:56 PM CDT - 04/17/2025 11:19 PM CDT Emergency [facility] Emergency Department [address] [place] [phone] Clay Coyle MD Abdominal pain (Primary Dx); Nausea and vomiting, unspecified vomiting type; Colitis Discharge Disposition: Discharge to home or self care 04/16/2025 11:59 AM CDT - 04/16/2025 11:59 PM CDT Hospital Encounter [facility] [address] [place] [phone] Chronic nausea Discharge Disposition: Discharge to home or self care 04/12/2025 6:29 PM CDT - 04/12/2025 11:59 PM CDT Hospital Encounter [address] [phone] Clostridium difficile diarrh ea Discharge Disposition: Discharge to home or self care 04/09/2025 Results Follow-Up [facility] Medical Office [address] [place] [phone] Eoff, Humera Mitchell NP Allergen Alpha-gal (food) IgE, C. difficile testing Stool, [place] Gastric Emptying Study 04/09/2025 Orders Only [facility] Medical Office [address] [place] [phone] Eoff, Humera Mitchell NP Nausea and vomiting, unspecified vomiting type (Primary Dx) 04/06/2025 2:24 PM CDT - 04/06/2025 11:59 PM CDT Hospital Encounter [address] [phone] Chronic nausea Discharge Disposition: Discharge to home or self care 04/06/2025 1:30 PM CDT Office Visit [facility] Medical [address] [phone] Eoff, Humera Mitchell NP Clostridium difficile diarrhea (Primary Dx); Chronic nausea 03/30/2025 1:28 PM CDT - 03/30/2025 6:12 PM CDT Emergency [facility] Emergency Department [address] [place] [phone] Nausea and vomiting, unspecified vomiting type (Primary [...] on file 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 Eri CRNA Referring MD: Bisi Reyes, [...] - Call Dr. Francis in one week ([phone]) forresults of the biopsy. - Follow an [...] as needed. Procedure Code(s): --- Professional --- 16995, Esophagogastroduodenoscopy, flexible, transoral; with biopsy, single or multiple Diagnosis Code(s): --- Professional --- R11.2, Nausea with vomiting, unspecified R12, Heartburn K21.00, Gastro-esophageal reflux disease with esophagitis, without bleeding CPT copyright 2022 [employer]. All rights reserved. The codes documented in this report are preliminary and upon hims coder reviewmay be revised to meet current compliance [...] biopsy) 05/17/2025 12:51 PM CDT Narrative PATHOLOGY [facility] - 05/21/2025 1:[address] PM [address] [address] Tele: Masha Delarosa MD - Gut Puller Note to Patients: This report may contain [...] PATHOLOGY REPORT Patient Name: MING PARRA Address: [address] [place] [address]- Gender: F : 1975 (Age: 49) Service: Gastro Location: ENDO, [facility] #: [id number] Patient Type: [facility] Same Day Surgery Taken: 05/17/2025 Received 05/18/2025 [...] - Squamous mucosa with no histopathologic abnormality [facility]/05/21/2025 13:20 Examining Pathologist: Wan Pollock MD, PhD [...] BROWN and lower third esophagus are multiple hnuter tissue fragments, 1.1 x 0.2 x 0.1 [...] present for evaluation. Clerical Data Follows A; 93260 B; 41039 C; 88306 D; 55344 REPORT IMAGES AND/OR SCANNED DOCUMENTS ONLY VIEWABLE IN PDF FORMAT The immunohistochemical test(s) cited in this report, if any, was developed and its performance characteristics determined by [facility] Pathology Department. It has not been cleared or approved by the U.S. Food and Drug Administration. The FDA has determined that such clearance or approval is not necessary. This test is used for clinical purposes. It should not be regarded as investigational or for research. [facility] Laboratory is certified under the Clinical [...] part or completely in the following laboratories: [facility], [facility], [address] [place] [address]. us Eugene Francis DO LAB PATHOLOGY ORDERABLES Final Result PATHOLOGY [facility] [phone] * US Pelvis W Endovaginal (05/04/2025 3:47 [...] PM CDT Narrative 05/04/2025 3:42 PM CDT [address] [address] ECHOCARDIOGRAM Patient Name: MING PARRA : 1975 Study Date: 05/04/2025 2:32:33 PM Sex: F Tech: [facility] Ref Provider: BISI REYES Height(Cm): 168 BSA: [...] ventricular size. Electronically Signed By: Jeremie Dillon [facility] Card 05/04/2025 3:41:58 PM CDT Procedure Note Jeremie Dillon MD - 05/04/[address] [address] ECHOCARDIOGRAM Patient Name: MING PARRA : 1975 Study Date: 05/04/2025 2:32:33 PM Sex: F Tech: [facility] Ref Provider: BISI REYES Height(Cm): 168 BSA: [...] right ventricularsize. Electronically Signed By: Jeremie Dillon [facility] Card 05/04/2025 3:41:58 PM CDT us Bisi [...] Chavezos DO LAB BLOOD ORDERABLES Final Result [facility]) [address] [place] [address] * (ABNORMAL) Differential, auto (04/19/2025 12:50 PM CDT) Neutrophil abs 14.22(H) 1.50 - 6.50 K/cumm Imm gran abs 0.06 0.00 - 0.10 K/cumm [facility] ([place]) Lymphocyte abs 1.33 0.80 - 3.30 K/cumm [facility] ([place]) Monocyte abs 0.55 0.20 - 0.80 K/cumm [facility] ([place]) Eosinophil abs 0.00 0.00 - 0.50 K/cumm [facility] ([place]) Basophil abs 0.03 0.00 - 0.10 K/cumm [facility] ([place]) Neutrophil pct 87.8 % [facility] ([place]) Comment: Interpretive Data Percent cell count reference ranges are not reported, since discordance with absolute values may lead to misinterpretation of CBC data. Current Interpretive Data was last revised on 2017. Imm gran pct 0.4 % [facility]) Comment: Interpretive Data Percent cell count reference ranges are not reported, since discordance with absolute values may lead to misinterpretation of CBC data. Current Interpretive Data was last revised on 2017. Lymphocyte pct 8.2 % [facility] ([place]) Comment: Interpretive Data Percent cell count reference ranges are not reported, since discordance with absolute values may lead to misinterpretation of CBC data. Current Interpretive Data was last revised on 2017. Monocyte pct 3.4 % [facility]) Comment: Interpretive Data Percent cell count reference ranges are not reported, since discordance with absolute values may lead to misinterpretation of CBC data. Current Interpretive Data was last revised on 2017. Eosinophil pct 0.0 % [facility] ([place]) Comment: Interpretive Data Percent cell count reference ranges are not reported, since discordance with absolute values may lead to misinterpretation of CBC data. Current Interpretive Data was last revised on 2017. Basophil pct 0.2 % [facility] ([place]) Comment: Interpretive Data Percent cell count reference ranges are not reported, since discordance with absolute values may lead to misinterpretation of CBC data. Current Interpretive Data was last revised on 2017. Blood 04/19/2025 12:5 0 PM CDT 04/19/2025 12:59 PM CDT us Julio Cesar Quick DO LAB BLOOD ORDERABLES Final Result [facility]) [address] Department [place] [address] * (ABNORMAL) CBC with auto differential (04/19/2025 12:50 PM CDT) WBC 16.19(H) 3.80 - 9.90 K/cumm Hgb 12.7 11.9 - 15.5 g/dL [facility]) Hct 37.5 35.6 - 45.5 % [facility] ([place]) Plt 358 150 - 400 K/cumm [facility]) MPV 11.2 9.1 - 12.3 fL [facility]) RBC 4.66 3.90 - 5.20 M/cumm [facility]) MCV 80.5(L) 81.3 - 96.4 fL [facility]) MCH 27.3 27.1 - 33.3 pg [facility]) MCHC 33.9 32.3 - 35.7 g/dL [facility]) RDW CV 14.7 11.1 - 14.9 % [facility]) RDW SD 42.7 35.7 - 48.1 fL [facility]) NRBC abs 0.00 0.00 - 0.01 K/cumm [facility]) Blood Venous blood specimen / Unknown 04/19/2025 12:50 PM CDT 04/19/2025 12:59 PM CDT us Julio Cesar Quick DO LAB BLOOD ORDERABLES Final Result [facility] [address] [place] [address] * (ABNORMAL) Comprehensive metabolic panel (04/19/2025 12:50 PM CDT) [facility] Sodium 139 135 - 145 mmol/L Potassium, pl 3.3 3.3 - 4.9 mmol/L [facility]) Chloride 99 97 - 110 mmol/L [facility] ([place]) CO2 18.8(L) 22.0 - 32.0 mmol/L [facility]) Anion gap 21(H) 2 - 15 mmol/L [facility]) BUN 12 6 - 25 mg/dL [facility] ([place]) Creatinine 0.84 0.60 - 1.10 mg/dL [facility]) Glucose 150 70 - 199 mg/dL [facility]) Comment: Interpretive Data Fasting glucose >/= 126 [...] 2022 Calcium 10.1 8.5 - 10.3 mg/dL [facility]) Bilirubin, total 0.4 0.1 - 1.2 mg/dL [facility] ([place]) Protein, pl 7.7 6.5 - 8.5 g/dL [facility] ([place]) Albumin 4.8 3.5 - 5.0 g/dL [facility] ([place]) Alk phos 121 40 - 130 Units/L [facility]) ALT 15 7 - 45 Units/L [facility]) AST 24 10 - 45 Units/L [facility]) Blood Venous blood specimen / Unknown 04/19/2025 12:50 PM CDT 04/19/2025 12:59 PM CDT us Julio Cesar Quick DO LAB BLOOD ORDERABLES Final Result [facility]) [address] [place] [address] * ECG 12 lead (04/19/2025 12:03 PM CDT) 04/19/2025 12:0 3 PM CDT Narrative [facility] [employer] - 04/19/2025 8:19 PM CDT Vent Rate: 73 bpm RR Interval: 821 msec SD Interval: 150 msec QRS Duration: 82 msec QT Interval: 394 msec QTC Interval: 419 msec P-R-T Reading: 45 - 67 - 51 degrees IMPRESSION: SINUS RHYTHM WITH SINUS ARRHYTHMIA NORMAL ECG NO ACUTE CHANGES COMPARED TO 04/17/[address]: [address] Mohamud Mitchell M.D. us Julio Cesar Quick DO ECG ORDERABLES Final Result [facility] [employer] [facility] * CT Abdomen Pelvis W Contrast (04/17/2025 [...] A preliminary teleradiology report was provided by [facility]. Dictated by: Jose Elder M.D. The [...] A preliminary teleradiology report was provided by [facility]. Dictated by: Jose Elder M.D. The radiology attending physician has personally reviewed this study, and had reviewed and/or edited this written report and agrees with it. Electronically signed by: Elder Burris M.D. Clay Coyle MD IMG CT PROCEDURES Final Result * POCT hCG, urine (04/17/2025 8:40 PM CDT) [facility] HCG, ur, POC Negative Negative Lot Number [id number] QC Backgroud Clear Acceptable QC Control Line Acceptable Urine 04/17/2025 8:40 PM CDT Clay Coyle MD POINT OF CARE TEST ORDSoco CARDOSO Final Result * Troponin T high-sensitivity series (baseline, 2hr, 4hr, 6hr) (04/17/2025 8:34 PM CDT) [facility] Trop T hs 6 <=14 ng/L Comment: Interpretive Data For further hscTnT resources including the diagnostic algorithm and an aid in interpretation, copy and paste this link: https://nrl.testcatalog.org/show/hsTrop Current Interpretive Data last revised 2020 Blood 04/17/2025 8:34 PM CDT 04/17/2025 8:37 PM CDT Clay Coyle MD LAB BLOOD ORDERABLES Fi nal Result [facility] [address] [facility] Department [place] [address] * (ABNORMAL) Lactate (04/17/2025 8:34 PM CDT) Lactate 3.5(H) 0.7 - 2.0 mmol/L Blood 04/17/2025 8:34 PM CDT 04/17/2025 8:37 PM CDT Clay Coyle MD LAB BLOOD ORDERABLES Fi nal Result Performing Organization Address City/[facility]/ZIP Co de Phone Number [facility] ([place]) [address] [place] [address] Department [place] [address] * eGFR (04/17/2025 8:34 PM CDT) eGFR [...] Kwan NP LAB BLOOD ORDERABLES Final Result [facility]) [address] [facility] [place] [address] * (ABNORMAL) Differential, auto (04/17/2025 8:34 PM CDT) Neutrophil abs 7.41(H) 1.50 - 6.50 K/cumm Imm gran abs 0.04 0.00 - 0.10 K/cumm [facility]) Lymphocyte abs 3.71(H) 0.80 - 3.30 K/cumm [facility]) Monocyte abs 0.99(H) 0.20 - 0.80 K/cumm [facility]) Eosinophil abs 0.06 0.00 - 0.50 K/cumm [facility]) Basophil abs 0.06 0.00 - 0.10 K/cumm [facility]) Neutrophil pct 60.4 % [facility] ([place]) Comment: Interpretive Data Percent cell count reference ranges are not reported, since discordance with absolute values may lead to misinterpretation of CBC data. Current Interpretive Data was last revised on 2017. Imm gran pct 0.3 % [facility] Comment: Interpretive Data Percent cell count reference ranges are not reported, since discordance with absolute values may lead to misinterpretation of CBC data. Current Interpretive Data was last revised on 2017. Lymphocyte pct 30.2 % [facility]) Comment: Interpretive Data Percent cell count reference ranges are not reported, since discordance with absolute values may lead to misinterpretation of CBC data. Current Interpretive Data was last revised on 2017. Monocyte pct 8.1 % [facility] ([place]) Comment: Interpretive Data Percent cell count reference ranges are not reported, since discordance with absolute values may lead to misinterpretation of CBC data. Current Interpretive Data was last revised on 2017. Eosinophil pct 0.5 % [facility] Comment: Interpretive Data Percent cell count reference ranges are not reported, since discordance with absolute values may lead to misinterpretation of CBC data. Current Interpretive Data was last revised on 2017. Basophil pct 0.5 % [facility] ([place]) Comment: Interpretive Data Percent cell count reference ranges are not reported, since discordance with absolute values may lead to misinterpretation of CBC data. Current Interpretive Data was last revised on 2017. Blood 04/17/2025 8:34 PM CDT 04/17/2025 8:37 PM CDT Farhana Kwan NP LAB BLOOD ORDERABLES Final Result [facility] [address] Department [place] [address] * (ABNORMAL) Urinalysis reflex to microscopic and culture Urine (04/17/2025 8:34 PM CDT) Color, ur Yellow Yellow Clarity, ur Cloudy(A) Clear [facility] ([place]) Specific gravity, ur 1.032(H) 1.003 - 1.030 [facility] ([place]) pH, urine 6.5 [facility] ([place]) Comment: Interpretive Data U rine pH is affected by diet, medications, systemic acid-base disturbances, and renal tubular function. pH may affect urinary stone formation. For example, urine pH below 6.0 may help reduce the tendency for calcium phosphate stones and pH greater than 6.0 may reduce the tendency for uric acid stone formation. Source: [facility] Prepared Response Current Interpretive Data was last revised on 2017 Protein, ur ql 1+(A) Negative [facility] ([place]) Glucose, ur ql Negative Negative [facility] Ketones, ur 1+(A) Negative [facility] ([place]) Bilirubin, ur Negative Negative [facility]) Blood, ur Trace(A) Negative [facility] ([place]) Urobilinogen, ur 2.0(A) <2.0 mg/dL [facility] ([place]) Nitrite, ur Negative Negative [facility] ([place]) Leukocyte esterase, ur Negative Negative [facility]) UA reflex comment Reflex to microscopic UA will be performed. [facility]) Urine 04/17/2025 8:34 PM CDT 04/17/2025 8:43 PM CDT Clay Coyle MD LAB MICROBIOLOGY - GENE RAL ORDERABLES Final Result [facility]) [address] Department [place] [address] * (ABNORMAL) CBC with auto differential (04/17/2025 8:34 PM CDT) WBC 12.27(H) 3.80 - 9.90 K/cumm Hgb 12.8 11.9 - 15.5 g/dL [facility]) Hct 38.1 35.6 - 45.5 % [facility]) Plt 378 150 - 400 K/cumm [facility]) MPV 10.6 9.1 - 12.3 fL [facility]) RBC 4.71 3.90 - 5.20 M/cumm [facility]) MCV 80.9(L) 81.3 - 96.4 fL [facility]) MCH 27.2 27.1 - 33.3 pg [facility]) MCHC 33.6 32.3 - 35.7 g/dL [facility]) RDW CV 14.6 11.1 - 14.9 % [facility]) RDW SD 42.6 35.7 - 48.1 fL [facility]) NRBC abs 0.00 0.00 - 0.01 K/cumm [facility]) Blood Venous blood specimen / Unknown 04/17/2025 8:34 PM CDT 04/17/2025 8:37 PM CDT Clay Coyle MD LAB BLOOD ORDERABLES Fi nal Result Performing Organization Address [facility] Co de Phone Number [facility]) [address] [place] [address] Department [place] [address] * (ABNORMAL) Urinalysis, microscopic only (04/17/2025 8:34 PM CDT) WBC, ur 0-5 0 - 5 /HPF RBC, ur 0-2 0 - 2 /HPF [facility]) Bacteria, ur Trace(A) [facility]) Mucous, ur Present(A) [facility] ([place]) Culture Reflex Comment Reflex conditions for urine culture (WBC >10) not met. [facility]) Urine 04/17/2025 8:34 PM CDT 04/17/2025 8:43 PM CDT Clay Coyle MD LAB URINE ORDERABLES Fi nal Result Performing Organization Address [facility] Co de Phone Number [facility]) [address] [place] [address] Department [place] [address] * CRP (acute phase) (04/17/2025 8:34 PM CDT) CRP 3.8 <=10.0 mg/L Blood 04/17/2025 8:34 PM CDT 04/17/2025 8:37 PM CDT Clay Coyle MD LAB BLOOD ORDERABLES Fi nal Result [facility]) [address] [facility] Department [place] [address] * Lipase (04/17/2025 8:34 PM CDT) [facility] Lipase 24 10 - 99 Units/L Blood Venous blood specimen / Unknown 04/17/2025 8:34 PM CDT 04/17/2025 8:37 PM CDT Clay Coyle MD LAB BLOOD ORDERABLES Fi nal Result Performing Organization Address City/[facility] Co de Phone Number [facility]) [address] [facility] Department of Laboratories [place], [place] [id number] * (ABNORMAL) Comprehensive metabolic panel (04/17/2025 8:34 PM CDT) [facility] Sodium 140 135 - 145 mmol/L Potassium, pl 3.6 3.3 - 4.9 mmol/L [facility] Chloride 101 97 - 110 mmol/L [facility]) CO2 18.8(L) 22.0 - 32.0 mmol/L [facility]) Anion gap 20(H) 2 - 15 mmol/L [facility]) BUN 12 6 - 25 mg/dL [facility]) Creatinine 0.80 0.60 - 1.10 mg/dL [facility]) Glucose 156 70 - 199 mg/dL [facility]) Comment: Interpretive Data Fasting glucose >/= 126 [...] 8.5 - 10.3 mg/dL [facility] ([place]) Bilirubin, total 0.4 0.1 - 1.2 mg/dL [facility] ([place]) Protein, pl 7.8 6.5 - 8.5 g/dL [facility]) Albumin 4.7 3.5 - 5.0 g/dL [facility] ([place]) Alk phos 130 40 - 130 Units/L [facility] [facility]) ALT 15 7 - 45 Units/L [facility]) AST 22 10 - 45 Units/L [facility] ([place]) Blood Venous blood specimen / Unknown 04/17/2025 8:34 PM CDT 04/17/2025 8:37 PM CDT Clay Coyle MD LAB BLOOD ORDERABLES Fi nal Result [facility] ([place]) [address] Department [place] [address] * ECG 12 lead (04/17/2025 8:04 PM CDT) 04/17/2025 8:04 PM CDT Narrative [facility] - 04/17/2025 8:19 PM CDT Vent Rate: 85 bpm RR Interval: 704 msec SD Interval: 145 msec QRS Duration: 81 msec QT Interval: 357 msec QTC Interval: 399 msec P-R-T Reading: 64 - 69 - 41 degrees IMPRESSION: SINUS RHYTHM WITH SINUS ARRHYTHMIA POSSIBLE LEFT ATRIAL ENLARGEMENT BORDERLINE ECG No significant changes seen compared to 03/30/[address]: Dr[address] Mohamud Mitchell M.D. Clay Coyle MD ECG ORDERABLES Final R esult Performing Organization Address City/[facility]/ZIP Co de Phone Number [facility] * NM Gastric Emptying Study (04/16/2025 4:31 PM CDT) Anatomical Region Laterality Modality Body N/A Nuclear Medicine 04/17/2025 5:57 AM CDT Impressions 04/17/2025 5:57 AM CDT 1. Abnormally delayed gastric emptying noted at 4 hour time interval.. Electronically signed by: Richard Kennedy M.D. [facility] 04/17/2025 5:57 AM CDT Gastric emptying scintigraphy [...] Electronically signed by: Richard Kennedy M.D. us Humera Hung SMOG TECHNICIAN IMG NM PROCEDURES Final Resu lt * C. difficile testing Stool (04/12/2025 6:15 PM CDT) Pathologist [facility] Result Negative Negative Toxin Result Negative Negative [facility] ([place]) C. diff result Negative, free toxin Negative, free toxin [facility] ([place]) C. diff interp Negative for toxigenic Clostridioides (Clostridium) difficile. Analysis was performed using a glutamate dehydrogenase antigen detection assay combined with a C. difficile toxin detection assay. [facility] ([place]) Stool 04/12/2025 6:15 PM CDT 04/12/2025 6:36 PM CDT Humera Hung NP LAB MICROBIOLOGY - GENERAL O RDERABLES Final Result Performing Organization Address [facility]/ZIP Co de Phone Number [facility] ([place]) [address] Department [place] [address] * Allergen Alpha-gal (food) IgE (04/06/2025 1:59 PM CDT) [facility] Alpha-gal IgE <0.10 0.00 - 0.34 kUnits/L Comment:Testing performed by : [facility], [address] [place]., [address] Blood 04/06/2025 1:59 PM CDT 04/06/2025 7:37 PM CDT Humera Hung SMOG TECHNICIAN LAB BLOOD ORDERABLES Final R esult [facility] ([place]) [address] Department of Prepared Response [place], [place] [id number] * Celiac reflex panel (04/06/2025 1:59 PM CDT) [facility] IgA 108 61 - 356 mg/dL [facility] ref Lab Celiac disease interpretation See Footnote [facility] ([place]) Comment: See Comment: Negative serology. Celiac disease unlikely. However, approximately 10% of patients with celiac disease are seronegative. Also, patients who are already adhering to a gluten-free diet may be seronegative. If celiac disease is highly clinically suspected, consider HLA-DQ typing. Test Performed by: [place] [address] Water Resources Project Manager: Demi Infante Ph.D.; CLIA# [id number] Blood 04/06/2025 1:59 PM CDT 04/06/2025 3:52 PM CDT Humera Hugn SMOG TECHNICIAN LAB BLOOD ORDERABLES Final R esult Performing Organization Address City/[facility]/ZIP Co de Phone Number [facility] ([place]) [address] Department [place] [address] [facility] ref [facility] * Tissue transglutaminase IgA (TGG-IgA Ab) (04/06/2025 1:59 PM CDT) TTG ab, IgA <1.2 <4.0 (Negative) units/mL Comment: Test Performed by: [place] [address] Water Resources Project Manager: Demi Infante Ph.D.; CLIA# [id number] Interpretive data Negative: <15 units/mL Positive: > or equal to 15 units/mL Current interpretive data was last revised on 2016. Testing performed by: [facility], [address] [place]., [address] Blood 04/06/2025 1:59 PM CDT 04/06/2025 3:52 PM CDT Humera Hung SMOG TECHNICIAN LAB BLOOD ORDERABLES Final R esult [facility] ([place]) [address] Department [place] [address] * Troponin T high-sensitivity 2-hour (03/30/2025 3:54 PM CDT) Trop T hs 6 <=14 ng/L Comment: Interpretive Data For further hscTnT resources including the diagnostic algorithm and an aid in interpretation, copy and paste this link: https://nrl.testcatalog.org/show/hsTrop Current Interpretive Data last revised 2020 Trop T hs delta 0 ng/L [facility] ([place]) Trop T hs interp Insignificant [facility] ([place]) Blood 03/30/2025 3:54 PM CDT 03/30/2025 4:00 PM CDT us Lorraine Wilkins DO LAB BLOOD ORDERABLES Final Result [facility] ([place]) [address] Link Department [place] [address] * CT Abdomen Pelvis W Contrast (03/30/2025 [...] ur Yellow Yellow Clarity, ur Clear Clear [facility] Specific gravity, ur 1.019 1.003 - 1.030 [facility] ([place]) pH, urine 8.5 [facility] ([place]) Comment: Interpretive Data U rine pH is affected by diet, medications, systemic acid-base disturbances, and renal tubular function. pH may affect urinary stone formation. For example, urine pH below 6.0 may help reduce the tendency for calcium phosphate stones and pH greater than 6.0 may reduce the tendency for uric acid stone formation. Source: [facility] Prepared Response Current Interpretive Data was last revised on 2017 Protein, ur ql 1+(A) Negative [facility] ([place]) Glucose, ur ql Negative Negative [facility] ([place]) Ketones, ur Negative Negative [facility] Bilirubin, ur Negative Negative [facility] Blood, ur Negative Negative [facility] ([place]) Urobilinogen, ur <2.0 <2.0 mg/dL [facility] ([place]) Nitrite, ur Negative Negative [facility] ([place]) Leukocyte esterase, ur Negative Negative [facility] UA reflex comment Reflex to microscopic UA will be performed. [facility] ([place]) Urine 03/30/2025 2:30 PM CDT 03/30/2025 2:33 PM CDT Lorraine Wilkins DO LAB MICROBIOLOGY - GENERAL ORDERABLES Final Result Performing Organization Address [facility]/[place] Co de Phone Number [facility]) [address] [place] [address] Department of Laboratories [place], [place] [id number] * (ABNORMAL) Urinalysis, microscopic only (03/30/2025 2:30 PM CDT) [facility] WBC, ur 0-5 0 - 5 /HPF RBC, ur 0-2 0 - 2 /HPF [facility]) Epithelial cells, squamous, ur 1-5 0 - 5 /HPF [facility]) Bacteria, ur Trace(A) [facility] ([place]) Amorphous crystals, ur 1+(A) [facility] ([place]) Culture Reflex Comment Reflex conditions for urine culture (WBC >10) not met. [facility] ([place]) Urine 03/30/2025 2:30 PM CDT 03/30/2025 2:33 PM CDT Lorraine Wilkins DO LAB URINE ORDERABLES Final Result Performing Organization Address [facility] de Phone Number [facility]) [address] [place] [address] Department [place] [address] * POCT hCG, urine (03/30/2025 2:28 PM CDT) [facility] HCG, ur, POC Negative Negative Lot Number [id number] QC Backgroud Clear Acceptable QC Control Line Acceptable Urine 03/30/2025 2:28 PM CDT Lorraine Wilkins DO POINT OF CARE TEST ORDERAB LES Final Result * Troponin T high-sensitivity series (baseline, 2hr, 4hr, 6hr) (03/30/2025 1:45 PM CDT) [facility] Trop T hs <6 <=14 ng/L Comment: Interpretive Data For further hscTnT resources including the diagnostic algorithm and an aid in interpretation, copy and paste this link: https://nrl.testcatalog.org/show/hsTrop Current Interpretive Data last revised 2020 Blood 03/30/2025 1:45 PM CDT 03/30/2025 1:47 PM CDT us Lorraine Wilkins DO LAB BLOOD ORDERABLES Final Result [facility] ([place]) [address] Department of Laboratories [place] [address] * eGFR (03/30/2025 1:45 PM CDT) eGFR [...] DO LAB BLOOD ORDERABLES Final Result [facility] ([place]) [address] [place] [address] * (ABNORMAL) Differential, auto (03/30/2025 1:45 PM CDT) Neutrophil abs 8.29(H) 1.50 - 6.50 K/cumm Imm gran abs 0.03 0.00 - 0.10 K/cumm [facility] Lymphocyte abs 1.47 0.80 - 3.30 K/cumm [facility] ([place]) Monocyte abs 0.44 0.20 - 0.80 K/cumm [facility] ([place]) Eosinophil abs 0.03 0.00 - 0.50 K/cumm [facility] ([place]) Basophil abs 0.04 0.00 - 0.10 K/cumm [facility] ([place]) Neutrophil pct 80.4 % [facility] ([place]) Comment: Interpretive Data Percent cell count reference ranges are not reported, since discordance with absolute values may lead to misinterpretation of CBC data. Current Interpretive Data was last revised on 2017. Imm gran pct 0.3 % [facility] ([place]) Comment: Interpretive Data Percent cell count reference ranges are not reported, since discordance with absolute values may lead to misinterpretation of CBC data. Current Interpretive Data was last revised on 2017. Lymphocyte pct 14.3 % [facility] ([place]) Comment: Interpretive Data Percent cell count reference ranges are not reported, since discordance with absolute values may lead to misinterpretation of CBC data. Current Interpretive Data was last revised on 2017. Monocyte pct 4.3 % [facility] ([place]) Comment: Interpretive Data Percent cell count reference ranges are not reported, since discordance with absolute values may lead to misinterpretation of CBC data. Current Interpretive Data was last revised on 2017. Eosinophil pct 0.3 % [facility] ([place]) Comment: Interpretive Data Percent cell count reference ranges are not reported, since discordance with absolute values may lead to misinterpretation of CBC data. Current Interpretive Data was last revised on 2017. Basophil pct 0.4 % [facility] ([place]) Comment: Interpretive Data Percent cell count reference ranges are not reported, since discordance with absolute values may lead to misinterpretation of CBC data. Current Interpretive Data was last revised on 2017. Blood 03/30/2025 1:45 PM CDT 03/30/2025 1:47 PM CDT us Lorraine Wilkins DO LAB BLOOD ORDERABLES Final Result [facility] ([place]) [address] Department [place] [address] * (ABNORMAL) CBC with auto differential (03/30/2025 1:45 PM CDT) WBC 10.30(H) 3.80 - 9.90 K/cumm Hgb 12.1 11.9 - 15.5 g/dL [facility]) Hct 36.2 35.6 - 45.5 % [facility] ([place]) Plt 328 150 - 400 K/cumm [facility] ([place]) MPV 10.9 9.1 - 12.3 fL [facility] ([place]) RBC 4.46 3.90 - 5.20 M/cumm [facility] ([place]) MCV 81.2(L) 81.3 - 96.4 fL [facility] ([place]) MCH 27.1 27.1 - 33.3 pg [facility] ([place]) MCHC 33.4 32.3 - 35.7 g/dL [facility] ([place]) RDW CV 14.7 11.1 - 14.9 % [facility] ([place]) RDW SD 43.3 35.7 - 48.1 fL [facility] ([place]) NRBC abs 0.00 0.00 - 0.01 K/cumm [facility]) Blood Venous blood specimen / Unknown 03/30/2025 1:45 PM CDT 03/30/2025 1:47 PM CDT Lorraine Wilkins LAB BLOOD ORDERABLES Final Result [facility]) [address] Department of Laboratories [place], [place] [id number] * Lipase (03/30/2025 1:45 PM CDT) Pathologist [facility] Lipase 23 10 - 99 Units/L Blood Venous blood specimen / Unknown 03/30/2025 1:45 PM CDT 03/30/2025 1:47 PM CDT Lorraine Wilkins LAB BLOOD ORDERABLES Final Result Performing Organization Address [facility]/ZIP Co de Phone Number [facility] [place]) [address] Department [place] [address] * (ABNORMAL) Comprehensive metabolic panel (03/30/2025 1:45 PM CDT) [facility] Sodium 137 135 - 145 mmol/L Potassium, pl 3.9 3.3 - 4.9 mmol/L [facility] ([place]) Chloride 103 97 - 110 mmol/L [facility] ([place]) CO2 18.0(L) 22.0 - 32.0 mmol/L [facility]) Anion gap 16(H) 2 - 15 mmol/L [facility] ([place]) BUN 9 6 - 25 mg/dL [facility] ([place]) Creatinine 0.78 0.60 - 1.10 mg/dL [facility] ([place]) Glucose 138 70 - 199 mg/dL [facility] ([place]) Comment: Interpretive Data Fasting glucose >/= 126 [...] 2022 Calcium 9.7 8.5 - 10.3 mg/dL [facility] ([place]) Bilirubin, total 0.2 0.1 - 1.2 mg/dL [facility] ([place]) Protein, pl 7.1 6.5 - 8.5 g/dL [facility] ([place]) Albumin 4.2 3.5 - 5.0 g/dL [facility] ([place]) Alk phos 121 40 - 130 Units/L [facility] ([place]) ALT 14 7 - 45 Units/L [facility] ([place]) AST 22 10 - 45 Units/L [facility] ([place]) Blood 03/30/2025 1:45 PM CDT 03/30/2025 1:47 PM CDT Lorraine Wilkins DO LAB BLOOD ORDERABLES Final Result [facility] ([place]) [address] Department [place] [address] * ECG 12 lead (03/30/2025 1:38 PM CDT) 03/30/2025 1:38 PM CDT Narrative [facility] [employer] - 04/01/2025 3:41 PM CDT Vent Rate: 68 bpm RR Interval: 877 msec SD Interval: 154 msec QRS Duration: 86 msec QT Interval: 423 msec QTC Interval: 440 msec P-R-T Reading: 35 - 66 - 40 degrees IMPRESSION: SINUS RHYTHM WITH SINUS ARRHYTHMIA NORMAL ECG NO SIGNIFICANT CHANGES COMPARED TO PREVIOUS EKG Electronically Signed By: Dr. Shona Savage M.D. Lorraine Wilkins DO ECG ORDERABLES Final Resu lt [facility] [employer] [facility] * Diagnostic Mammogram Bilateral W Wally (12/05/2024 [...] Recently Relevant to Health Maintenance Insurance [facility] [employer] [place] Advance Directives For more information, please contact: [phone] * Full Code (Latest Code Status on File) Date Activated Date Inactivated Comments 05/17/2025 12:04 PM 05/17/2025 5:39 PM Care Teams Account Liaison Hospice Relationship Specialty Start Date End Date Bisi Reyes NP [address] [place] [id number] PCP - General Family Medicine 10/26/24
--- OUTSIDE RECORDS SUMMARY | 2025-05-22 10:51 | XMS_ITS | Encounter Summary ---
Author Organization [facility] Healthcare Address [address] [place] [address] Care Team Providers Care [employer] Crew Boss Name Role Phone Bisi Rutledge APARTMENT MAINTENANCE TECHNICIAN Primary Care Provider + Encounter Details Date Type Department Care Team ([facility] st Contact Info) Description 05/21/2025 Results Follow-Up [facility] Medical [facility] [address] [place] [address] Eugene Francis, DO [address] [place] [address] Surgical pathology Social History Tobacco [...] on file 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
[2025-05-22] MEDS: POTASSIUM CHLORIDE 20 MEQ ER TABLET 40 MEQ PO (11:06)
== END 2025-05-22 12:48 | disposition home or self-care (01) ==
PROVIDERS: Emergency Provider Physician Assistant
DX: E86.0 Dehydration (principal); E83.42 Hypomagnesemia; R11.2 Nausea with vomiting, unspecified; Z20.822 Contact with and (suspected) exposure to COVID-19; E78.5 Hyperlipidemia, unspecified; F41.9 Anxiety disorder, unspecified; F32.A Depression, unspecified; K40.90 Unilateral inguinal hernia, without obstruction or gangrene, not specified as recurrent; I31.39 Other pericardial effusion (noninflammatory); Z79.899 Other long term (current) drug therapy
CPT/HCPCS: 36415; 74177; 80053; 80307; 81001; 81025; 83690; 83735; 85025; 87637; 96361; 96365; 96375; 99284; A9270; J2405; J3475; J7030; Q9967